=== PATIENT | female | born 1980 | race Caucasian/White ===

== ENCOUNTER 2023-08-09 09:39 | Observation (INO) | payer OTHER, SELFPAY ==
[2023-08-09] VITALS (23 sets, daily range): BP systolic 127–164; BP diastolic 81–116; PULSE 55–89; RESP 9–19; TEMP 36.6–36.7; O2SAT 95–100; BMI 34.7; BMI 34.9
--- NOTE | 2023-08-09 09:47 | ECG_ITS ---
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
[2023-08-09 09:59] LABS: Basophils Absolute Auto 0.1 10^3/uL (0.0-0.1); Basophils Percent Auto 0.5 % (0.2-2.0); Eosinophils Absolute Auto 0.2 10^3/uL (0.0-0.7); Eosinophils Percent Auto 1.8 % (0.9-7.0); Hemoglobin 15.5 g/dL (12.0-16.0); Immature Granulocytes Abs Auto 0.05 10^3/uL (0.00-0.03); Immature Granulocytes Pct Auto 0.4 % (0.0-0.5); Lymphocytes Absolute Auto 2.6 10^3/uL (1.2-3.8); Lymphocytes Percent Auto 21.8 % (20.5-60.0); Mean Corpuscular Hemoglobin 30.9 pg (26.7-34.0); Mean Corpuscular Volume 93.6 fL (81.0-99.0); Mean Platelet Volume 9.9 fL (9.5-13.5); Monocytes Absolute Auto 0.8 10^3/uL (0.3-0.8); Monocytes Percent Auto 6.3 % (1.7-12.0); Neutrophils Absolute Auto 8.3 10^3/uL (1.4-6.5); Neutrophils Percent Auto 69.2 % (43.0-75.0); Platelet Count 270 10^3/uL (150-450); Red Blood Count 5.02 10^6/uL (4.20-5.40); Red Cell Distribution Width 14.6 % (11.0-15.0)
--- NOTE | 2023-08-09 09:59 | XR_ITS ---
The [address] [address] Patient Name: TRAVIS RIVAS MRN: [id number] date: 1980 Sex: F Assigned Patient Location: ED.MAIN Current Patient Location: ED.MAIN Accession/Order Number: [id number] Exam Date: 08/09/2023 09:55 Report Date: 08/09/2023 10:23 At the request of: TATE MALDONADO Procedure: XR chest 1V EXAM: Portable chest REASON FOR EXAM: Chest pain for the last 3 days. TECHNIQUE: A portable frontal view of the chest was obtained. COMPARISON: None. FINDINGS: The lungs are well-inflated and clear. The heart and mediastinum are normal. There are median sternotomy wires. There is no mass or pathologic adenopathy. Osseous structures are normal. XR/XR chest 1V IMPRESSION: No acute cardiopulmonary process. Electronically authenticated by: GAVIN SANCHEZ Date: 08/09/2023 10:23
[2023-08-09 10:08] LABS: HCG Qualitative NEGATIVE (NEGATIVE)
[2023-08-09 10:13] LABS: Alanine Aminotransferase 38 U/L (14-59); Albumin Globulin Ratio 0.9; Albumin Level 3.6 g/dL (3.4-5.0); Alkaline Phosphatase 88 U/L (46-116); Anion Gap 15.4; Aspartate Amino Transferase 19 U/L (15-37); BUN Creatinine Ratio 18.3; Bilirubin Total 0.2 mg/dL (0.2-1.0); Calcium 8.7 mg/dL (8.5-10.1); Carbon Dioxide 19.8 mmol/L (21.0-32.0); Chloride 105 mmol/L (98-107); Estimated GFR (African America >60 (>=60); Estimated GFR (Non-African Ame >60 (>=60); Glucose 112 mg/dL (74-106); Potassium 4.2 mmol/L (3.5-5.1); Prothrombin Time 9.6 sec (9.0-11.6); Sodium 136 mmol/L (136-145); Total Protein 7.6 g/dL (6.4-8.2)
[2023-08-09 10:14] LABS: INR <0.93
[2023-08-09 10:15] LABS: Troponin I High Sensitivity 38.6 pg/mL (4.0-51.3)
[2023-08-09 10:44] LABS: Ethanol <3 mg/dL
--- NOTE | 2023-08-09 11:04 | ED_ITS ---
HPI - Chest Pain General Chief Complaint: Chest Pain Stated Complaint: CHEST PAIN Time Seen by Provider: 08/09/23 09:47 Source: patient Mode of arrival: walk-in Limitations: no limitations History of Present Illness HPI narrative: This is a high risk patient who is a 42 years old who had a coronary artery disease developed and 1 artery bypass surgery done at the age of 31, the patient still continues to smoke almost a pack of cigarettes daily She is coming to us with 1 month history of chest pain retrosternal radiating to her left neck that comes sometimes on exertion and sometimes not related to that. The patient mentioned that the chest pain is associated with difficulty breathing She does have a history of acid reflux but she mentioned that this pain is different than her acid reflux pain as it is more pressure and radiating to the neck No history of coughing fever chills or any other complaints the patient mentioned that the pain feels like is worse over the last few days The patient does have a history of depression although she does not take any medication she mentioned that she does not feel like she is at risk of harming herself or the others and she right now it does not think her depression is not controlled and she mentioned exactly that she knows when to seek help when she needs for the depression and right now she feels like her Depression is controlled with no exacerbation Related Data Home Medications Medication Instructions Recorded Confirmed metoprolol tartrate 50 mg tablet 50 mg PO BID 08/09/23 08/09/23 Allergies Allergy/AdvReac Type Severity Reaction Status Date / Time haloperidol [From Haldol] Allergy Severe Anaphylaxis Verified 08/09/23 09:49 promethazine [From Phenergan] Allergy Severe Cramping Verified 08/09/23 10:18 of the Muscles risperidone [From Risperdal] Allergy Severe Hives Verified 08/09/23 10:18 nalbuphine [From Nubain] AdvReac Severe Cramping Verified 08/09/23 10:18 of the Muscles Review of Systems ROS Status of ROS 10 or more systems reviewed and unremark able except as noted in history and below PFSH PFS Social History Smoking status: Heavy tobacco smoker Exam Narrative Exam Narrative: Nurses notes and vital signs reviewed and patient is not hypoxic. General: Well-appearing and in no apparent distress. Skin: Warm, dry, no pallor noted. No rash. Head: Normocephalic, atraumatic. Neck: Supple, non-tender. Eye: Pupils are equal, round and EOMI. No scleral icterus. Ears, Nose, Mouth, and Throat: TM are clear, no nasal mucosal hypertrophy. Oral mucosa is moist, no posterior oropharynx erythema, uvula is mid-line Cardiovascular: Regular Rate and Rhythm without murmur, gallop or rub. Respiratory: No accessory muscle use or respiratory distress. Lungs are clear to auscultation, no wheezing, rales or rhonchi Chest Wall: no tenderness Back: No midline thoracic or lumbar vertebral tenderness. No CVA tenderness Musculoskeletal: normal ROM, no calf or popliteal tenderness, no lower extremity edema/swelling GI: Abdomen is soft, non-distended. Normal bowel sounds. No masses appreciated. No tenderness to palpation. No rebound, guarding, or rigidity noted. Neurological: A&O x4. No cranial nerve dysfunction observed. No truncal ataxia. Moves all extremities. Sensation intact. Psychiatric: Cooperative and interactive. Normal mood and affect. Constitutional Vital Signs, click to edit/add: Last Vital Signs Temp 98 F 08/09/23 09:42 Pulse 61 08/09/23 10:30 Resp 14 08/09/23 10:30 BP 127/95 H 08/09/23 10:30 Pulse Ox 95 08/09/23 10:30 O2 Del Method Room Air 08/09/23 09:42 Course Vital Signs Vital signs: Vital Signs Temperature 98 F 08/09/23 09:42 Pulse Rate 89 08/09/23 09:42 Respiratory Rate 16 08/09/23 09:42 Blood Pressure 148/116 H 08/09/23 09:42 Pulse Oximetry 100 08/09/23 09:42 Oxygen Delivery Method Room Air 08/09/23 09:42 Temperature 98 F 08/09/23 09:42 Pulse Rate 61 08/09/23 10:30 Respiratory Rate 14 08/09/23 10:30 Blood Pressure 127/95 H 08/09/23 10:30 Pulse Oximetry 95 08/09/23 10:30 Oxygen Delivery Method Room Air 08/09/23 09:42 MDM - Chest Pain MDM Narrative Medical decision making narrative: The showing sinus rhythm with a heart rate of [address] elevation or depression there is T wave inversion noted in lead aVL and her recent EKG done in the primary care doctor did not show that although there was no old EKG for compari son The patient is a high risk patient with coronary artery disease history who already have a artery coronary artery disease bypass graft and apparently she still continues to smoke and she have no optimization of her treatment including no cholesterol management or any hyperlipidemia management The patient also does not take aspirin although sometimes she will take aspirin only when the pain happens and that helps usually CBC and chemistry shows mild leukocytosis with a metabolic acidosis with no associated significant anion gap The patient was provided with 1 dose of aspirin in the ER The patient need to be admitted for stress test as inpatient as possible and her case was discussed with Dr. Cook he agreed with above mentioned plan Lab Data Labs: Lab Results 08/09/23 Range/Units 09:51 WBC 12.0 H (4.0-11.0) 10^3/uL RBC 5.02 (4.20-5.40) 10^6/uL Hgb 15.5 (12.0-16.0) g/dL Hct 47.0 (36.0-48.0) % MCV 93.6 (81.0-99.0) fL MCH 30.9 (26.7-34.0) pg MCHC 33.0 (29.9-35.2) g/dL RDW 14.6 (11.0-15.0) % Plt Count 270 (150-450) 10^3/uL MPV 9.9 (9.5-13.5) fL Neut % (Auto) 69.2 (43.0-75.0) % Lymph % (Auto) 21.8 (20.5-60.0) % [place] % (Auto) 6.3 (1.7-12.0) % Eos % (Auto) 1.8 (0.9-7.0) % Baso % (Auto) 0.5 (0.2-2.0) % Neut # (Auto) 8.3 H (1.4-6.5) 10^3/uL Lymph # (Auto) 2.6 (1.2-3.8) 10^3/uL [place] # (Auto) 0.8 (0.3-0.8) 10^3/uL Eos # (Auto) 0.2 (0.0-0.7) 10^3/uL Baso # (Auto) 0.1 (0.0-0.1) 10^3/uL Abs Immat Gran (auto) 0.05 H (0.00-0.03) 10^3/uL Imm/Tot Granulo (auto) 0.4 (0.0-0.5) % PT 9.6 (9.0-11.6) sec INR <0.93 Sodium 136 (136-145) mmol/L Potassium 4.2 (3.5-5.1) mmol/L Chloride 105 (98-107) mmol/L Carbon Dioxide 19.8 L (21.0-32.0) mmol/L Anion Gap 15.4 BUN 13.0 (7.0-18.0) mg/dL Creatinine 0.71 (0.55-1.02) mg/dL Est GFR ( Amer) >60 (>=60) Est GFR (Non-Af Amer) >60 (>=60) BUN/Creatinine Ratio 18.3 Glucose 112 H (74-106) mg/dL Calcium 8.7 (8.5-10.1) mg/dL Total Bilirubin 0.2 (0.2-1.0) mg/dL AST 19 (15-37) U/L ALT 38 (14-59) U/L Alkaline Phosphatase 88 (46-116) U/L Troponin I High Sens 38.6 (4.0-51.3) pg/mL Total Protein 7.6 (6.4-8.2) g/dL Albumin 3.6 (3.4-5.0) g/dL Globulin 4.0 g/dL Albumin/Globulin Ratio 0.9 Serum HCG, Qual Negative (NEGATIVE) Ethanol Quant <3 mg/dL Heart Score History: Highly Suspicious ECG: NS Repolarization Age: <45 years Risk Factors: >3 Risk Factors/ HX of CAD:2 Troponin: <Normal Limit Total Heart Score Recommendations & Risks:: 5 Discharge Plan Discharge Chief Complaint: Chest Pain Clinical Impression: Chest pain Qualifiers: Chest pain type: chest pain due to myocardial ischemia Ischemic chest pain type: unstable angina pectoris Qualified Code(s): I20.0 - Unstable angina Patient Disposition: Admitted as Observation Time of Disposition Decision: 11:19
[2023-08-09] MEDS: ASPIRIN 81 MG TAB.CHEW 324 MG PO (11:22)
--- NOTE | 2023-08-09 12:20 | NM_ITS ---
Patient Name: TRAVIS RIVAS MR#: [id number] : 1980 Exam Date: 08/10/2023 Ordering Doctor: DR Gilberto Cook . RADIOLOGY REPORT PROCEDURE: NM RADHA PERF SPECT REST STR COMPARISON: None. INDICATIONS: Chest pain, coronary artery disease TECHNIQUE: Exam Description: Stress/Rest one day protocol gated SPECT Rest Imagin.3 mCi Tc-99m Cardiolite IV on 08/10/2023 Stress Imaging 30.4 mCi Tc-99m Cardiolite IV on 08/10/2023 Exercise Protocol: John Heart Rate (bpm): Rest: 83 Max: 151 PMHR: 85 Blood Pressure: Rest: 134/92 Max: 182/80 Exercise Time: Minutes: 7 Seconds: 09 Stage Reached: Stage: 3 Mets 7.3 Symptoms: Rest and peak stress ECG findings were pending and the exercise portion of the study was pending per attending physician Dr. MASTERSON . For more details please see separate cardiac stress test report. FINDINGS: QUALITY OF STUDY: Good. PERFUSION DEFECT: None. LOCATION: N/A SIZE: N/A. SEVERITY: N/A. TYPE: N/A. WALL MOTION: Normal. LV SIZE: Normal. 98 mL. TID / TCD: None; 1.1 LVEF: Normal. Calculated EF 61%. SUMMARY: Myocardial perfusion imaging study is NORMAL. CONCLUSION: 1. Normal myocardial perfusion scan with no reversible ischemia 2. Pending exercise test results Dictated by: Esau Bay MD on 08/10/2023 at 10:37 Approved by: Esau Bay MD on 08/10/2023 at 10:38
--- NOTE | 2023-08-09 12:22 | CA_ITS ---
Patient Name: TRAVIS RIVAS MR#: [id number] : 1980 Exam Date: 08/09/2023 Ordering Doctor: DR WILIAN LOZANO . ECHOCARDIOGRAM REPORT PROCEDURE: CA ECHO LIMITED INDICATIONS: Dyspnea COMPARISON: None. DESCRIPTION: Limited ECHOCARDIOGRAM Real-time transthoracic echocardiography with 2D and M-mode performed. QUALITY: Technical quality was good. LEFT VENTRICLE: Normal chamber size. Borderline left ventricular hypertrophy. LV EF: Global left ventricular systolic function is normal. Calculated left ventricular ejection fraction is 64% LEFT ATRIUM: Normal chamber size. RIGHT ATRIUM: Normal chamber size. RIGHT VENTRICLE: Normal chamber size. Normal right ventricular systolic function. TRICUSPID VALVE: Normal mobility and thickness. MITRAL VALVE: Normal mobility and thickness. AORTIC VALVE: Normal trileaflet appearance. AORTIC ROOT: Normal diameter and appearance. PULMONIC VALVE: Normal thickness and mobility. PERICARDIUM: No evidence of pericardial effusion. IVC: Collapses with inspirations. Normal size CONCLUSION: 1. Global left ventricular systolic function is normal; visually estimated ejection fraction is 60 to 65% 2. Borderline increased left ventricular wall thickness 3. Right ventricle is normal in size and systolic function A limited echocardiogram was performed Adult Echocardiography Procedure Report Left Ventricle LVEDD (3.7 - 5.6 cm): 4.33 cm LVESD (2.2 - 4.0 cm): 3.12 cm LVIVS thickness (0.6 - 1.2 cm): 1.11 cm LVPW thickness (0.5 - 1.0 cm): 0.95 cm LVOT Diameter 1.81 cm Left Ventricular Ejection Fraction: 63.60 % Left Atrium LA Volume Index (2D A2C): 29.00 ml/m2 Left Atrium Systolic Dimension: 3.66 cm Mitral Valve Right Ventricle RV Internal Diastolic Dimension: 3.22 cm Aorta AO Root Diam: 3.28 cm Ascending Ao Diam: 3.33 cm Aortic Valve Tricuspid Valve Pulmonic Valve Right Atrium Right Atrium Systolic Pressure: 49.60 ml, 49.60 ml Dictated by: Joleen Cotto M.D. on 08/09/2023 at 16:32 Approved by: Joleen Cotto M.D. on 08/09/2023 at 16:34
[2023-08-09 13:08] LABS: Troponin I High Sensitivity 34.3 pg/mL (4.0-51.3)
[2023-08-09] MEDS: PANTOPRAZOLE SODIUM 40 MG VIAL IV (13:27)
[2023-08-09] MEDS: NITROGLYCERIN 0.4 MG BOTTLE PO ×3 (13:27→20:32)
[2023-08-09] MEDS: ACETAMINOPHEN 500 MG TABLET 1000 MG PO ×2 (13:35→21:51)
[2023-08-09 16:00] LABS: Troponin I High Sensitivity 30.4 pg/mL (4.0-51.3)
--- NOTE | 2023-08-09 16:39 | PM.CACN ---
History of Present Illness History of Present Illness Consult date: 08/09/23 Requesting physician: Gilberto Cook Consult reason: chest pain Chief complaint: CHEST PAIN Narrative: Patient is a 42 y/o F with known PMHx of CAD s/p CABG in 2011, PSVT, current smoker who presented to [facility] with c/o worsening chest pain. She reports having sx's of constant chest pressure that would worsen with exertion for the past month. Pain would be 2/10. Last night her CP became severe, 10/10 burning pain with accompanied dyspnea and palpitations. She states this felt similar to her sx's prior to her CABG in 2011. She tried to relax and fell asleep. When she woke up the chest pressure was still there but not as intense but she presented to the ER due to her sx's the night before. She had troponin level drawn x3 which have all been negative. Her EKG was negative for acute ischemic changes. CXR was unremarkable. Her BP was high. Currently she continues to feel mild chest pressure, feels like her chest is under water. She was given a SL nitro tablet. This helped her sx's but she developed a headache afterwards. She states she has noticed worsening dyspnea with exertion and palpitations (feels like a flubbing in her chest) for the past month as well. She continues to smoke but has motivation to quit. She has tried chantix before but developed suicidal ideation with this. She also developed similar sx's taking cymbalta in the past. She denies orthopnea, PND, LE swelling, syncope. She has a mother who had bypass surgery when she was 55-60 y/o along with her paternal grandfather who had bypass surgery in his 60s. She had an ECHO done and is pending a stress test tomorrow. Review of Systems ROS Status of ROS 10 or more systems reviewed and unremarkable except as noted in history and below Cardiovascular Reports: chest pain, palpitations and shortness of breath with exertion Respiratory Reports: shortness of breath [facility] Medical History (Updated 08/09/23 @ 17:10 by ALEYDA TAYLOR APRN) Coronary bypass graft mechanical complication ?T82.218A - Other mechanical complication of coronary artery bypass graft, initial encounter (ICD-10) PSVT (paroxysmal supraventricular tachycardia) ?I47.10 - Supraventricular tachycardia, unspecified (ICD-10) Family History (Updated 08/09/23 @ 12:06 by Bailey Henson) Father Family history of cancer Brother Family history of diabetes mellitus Mother Family history of hypertension Grandfather Family history of myocardial infarction Grandmother Family history of stroke Social History (Updated 08/09/23 @ 12:09 by Bailey Henson) Within the past year, how often did you have a drink containing alcohol: monthly or less Within the past year, how often did you have six or more drinks on one occasion: never Smoking status: Heavy tobacco smoker Non-prescribed substance use: cannabis (any form) Highest level of school completed/degree received: 10th grade Are you now , , , , never or living with a partner: In a typical week, how many times do you talk on the telephone with family, friends, or neighbors: 3 or more times per week How often do you get together with friends or relatives: twice per week How often do you attend latter-day or latter day services: never Do you belong to any clubs or organizations such as latter-day groups unions, [employer] or athletic groups, or school groups: no Total score: 2 Score interpretation: A score of greater than or equal to 2 indicates the lowest level of social isolation. Little interest or pleasure in doing things: several days Feeling down, depressed, or hopeless: several days Feel stressed/tense/nervous/anxious/difficulty sleeping: rather much Meds Home Medications and Allergies Home Medications Medication Instructions Recorded Confirmed Type metoprolol tartrate 50 mg tablet 50 mg PO BID 08/09/23 08/09/23 History Allergies Allergy/AdvReac Type Severity Reaction Status Date / Time haloperidol [From Haldol] Allergy Severe Anaphylaxis Verified 08/09/23 09:49 promethazine [From Phenergan] Allergy Severe Cramping Verified 08/09/23 10:18 of the Muscles risperidone [From Risperdal] Allergy Severe Hives Verified 08/09/23 10:18 nalbuphine [From Nubain] AdvReac Severe Cramping Verified 08/09/23 10:18 of the Muscles Exam Constitutional Vital Signs, click to edit/add: Last Vital Signs Temp 97.9 F 08/09/23 11:58 Pulse 69 08/09/23 15:54 Resp 18 08/09/23 11:58 BP 152/91 H 08/09/23 11:58 Pulse Ox 97 08/09/23 11:58 O2 Del Method Room Air 08/09/23 11:58 Documenting provider has reviewed patient's vital signs: yes Common normals: no apparent distress, oriented x3, alert and well nourished HENMT Common normals: normocephalic and head/scalp atraumatic Nose: external nose normal External ear: external ears normal Eye Common normals: PERRL and EOMs intact bilaterally Neck & C-Spine Common normals: full ROM, supple, no JVD and no carotid bruits Chest Common normals: inspection of chest normal Respiratory Common normals: normal respiratory effort, no use of accessory muscles and clear to auscultation bilaterally Cardio Common normals: no JVD, regular rate, regular rhythm, S1 normal heart sound, S2 normal heart sound, no gallops, no clicks, no murmurs, no rub and peripheral pulses 2+ throughout GI Common normals: Normal to inspection, nondistended, normoactive bowel sounds present Extremity Common normals: normal to inspection and no pedal edema Neuro Common normals: oriented x3, moves all extremities and no focal motor deficits Results Labs and Meds Lab results: Cardiac Enzymes 08/09/23 Range/Units 09:51 AST 19 (15-37) U/L Coagulation 08/09/23 Range/Units 09:51 PT 9.6 (9.0-11.6) sec CBC 08/09/23 Range/Units 09:51 WBC 12.0 H (4.0-11.0) 10^3/uL RBC 5.02 (4.20-5.40) 10^6/uL Hgb 15.5 (12.0-16.0) g/dL Hct 47.0 (36.0-48.0) % Plt Count 270 (150-450) 10^3/uL Neut # (Auto) 8.3 H (1.4-6.5) 10^3/uL Lymph # (Auto) 2.6 (1.2-3.8) 10^3/uL [place] # (Auto) 0.8 (0.3-0.8) 10^3/uL Eos # (Auto) 0.2 (0.0-0.7) 10^3/uL Baso # (Auto) 0.1 (0.0-0.1) 10^3/uL Comprehensive Metabolic Panel 08/09/23 Range/Units 09:51 Sodium 136 (136-145) mmol/L Potassium 4.2 (3.5-5.1) mmol/L Chloride 105 (98-107) mmol/L Carbon Dioxide 19.8 L (21.0-32.0) mmol/L BUN 13.0 (7.0-18.0) mg/dL Creatinine 0.71 (0.55-1.02) mg/dL Glucose 112 H (74-106) mg/dL Calcium 8.7 (8.5-10.1) mg/dL AST 19 (15-37) U/L ALT 38 (14-59) U/L Alkaline Phosphatase 88 (46-116) U/L Total Protein 7.6 (6.4-8.2) g/dL Albumin 3.6 (3.4-5.0) g/dL Intake and Output 08/09/23 08/09/23 08/09/23 07:59 15:59 23:59 Intake Total 400 / 400 Balance 400 / 400 Intake: Oral 400 / 400 Other: Weight 98.2 kg Patient Weight 08/10/23 07:59 Weight 98.2 kg Imaging and Cardiology Echo: report reviewed (CONCLUSION: 1. Global left ventricular systolic function is normal; visually estimated ejection fraction is 60 to 65% 2. Borderline increased left ventricular wall thickness 3. Right ventricle is normal in size and systolic function) ECG results: image reviewed EKG Interpretation EKG: sinus rhythm Assessment and Plan Assessment and Plan (1) Chest pain: Qualifiers: Chest pain type: chest pain due to myocardial ischemia Ischemic chest pain type: unstable angina pectoris Qualified Code(s): I20.0 - Unstable angina (2) CAD (coronary artery disease): Qualifiers: Associated angina: with other forms of angina Coronary Disease-Associated Artery/Lesion type: [place] artery [place] vs. transplanted heart: [place] heart Qualified Code(s): I25.118 - Atherosclerotic heart disease of [place] coronary artery with other forms of angina pectoris (3) Dyspnea on exertion: (4) HTN (hypertension): Qualifiers: Hypertension type: primary hypertension Qualified Code(s): I10 - Essential (primary) hypertension (5) Hx of CABG: Plan #Chest pain #CAD s/p CABG 2012 #PSVT #HTN #Dyspnea on exertion PLAN: -Patients sx's are concerning for angina ariel given her cardiac hx. Her troponin level has been negative x3 and her ECHO showed preserved LVEF. Agree with proceeding with stress test. -For CAD management, patient has not routinely taken ASA or a statin for some time. She is agreeable to start both. ASA already ordered. Will start atorvastatin 20mg daily. Lipid panel ordered. -Her BP is elevated. Will increase metoprolol to 100mg BID. -She has some OK depression on her EKG. Will check inflammatory markers CRP/ESR to rule out pericarditis. -If her testing is negative, recommend starting her on Ranexa 500mg BID and we can further uptitrate this in the clinic if her sx's improve. Imdur not the best option as it would likely cause her headaches given her sx of headaches when taking SL nitro and ntiro gtt. -Discussed importance of smoking cessation. She has motivation to quit. She had suicidal ideation with chantix. Suggested trying acupuncture, hypnotherapy, etc. Follow-up appt made with [facility] on 09/08/2023 at 11am. Please call if any further questions or concerns. Thanks! Aleyda Taylor APRN-ORE TESTER
[2023-08-09 17:19] LABS: C Reactive Protein <0.50 mg/dL (<=0.50)
[2023-08-09 17:21] LABS: Erythrocyte Sedimentation Rate 67 mm/hr (<=20)
--- NOTE | 2023-08-09 17:44 | P.HP_ITS ---
H&P: HPI History of Present Illness Chief complaint: CHEST PAIN Narrative: Patient is a 42-year-old with a history of coronary artery disease status post CABG. Started having increasing chest pressure with shortness of breath. This was similar to her previous episode when she had her initial CABG. Workup in ER was unremarkable. Patient mated to observation. Review of Systems ROS Status of ROS 10 or more systems reviewed and unremark able except as noted in history and below PFS PFS Medical History (Updated 08/09/23 @ 17:10 by ALEYDA TAYLOR APRN) Coronary bypass graft mechanical complication ?T82.218A - Other mechanical complication of coronary artery bypass graft, initial encounter (ICD-10) PSVT (paroxysmal supraventricular tachycardia) ?I47.10 - Supraventricular tachycardia, unspecified (ICD-10) Family History (Updated 08/09/23 @ 12:06 by Bailey Henson) Father Family history of cancer Brother Family history of diabetes mellitus Mother Family history of hypertension Grandfather Family history of myocardial infarction Grandmother Family history of stroke Social History (Updated 08/09/23 @ 12:09 by Bailey Henson) Within the past year, how often did you have a drink containing alcohol: monthly or less Within the past year, how often did you have six or more drinks on one occasion: never Smoking status: Heavy tobacco smoker Non-prescribed substance use: cannabis (any form) Highest level of school completed/degree received: 10th grade Are you now , , , , never or living with a partner: In a typical week, how many times do you talk on the telephone with family, friends, or neighbors: 3 or more times per week How often do you get together with friends or relatives: twice per week How often do you attend roman catholic or catholic services: never Do you belong to any clubs or organizations such as roman catholic groups unions, fraternal or athletic groups, or school groups: no Total score: 2 Score interpretation: A score of greater than or equal to 2 indicates the lowest level of social isolation. Little interest or pleasure in doing things: several days Feeling down, depressed, or hopeless: several days Feel stressed/tense/nervous/anxious/difficulty sleeping: rather much Meds Home Medications and Allergies Home Medications Medication Instructions Recorded Confirmed Type metoprolol tartrate 50 mg tablet 50 mg PO BID 08/09/23 08/09/23 History Allergies Allergy/AdvReac Type Severity Reaction Status Date / Time haloperidol [From Haldol] Allergy Severe Anaphylaxis Verified 08/09/23 09:49 promethazine [From Phenergan] Allergy Severe Cramping Verified 08/09/23 10:18 of the Muscles risperidone [From Risperdal] Allergy Severe Hives Verified 08/09/23 10:18 nalbuphine [From Nubain] AdvReac Severe Cramping Verified 08/09/23 10:18 of the Muscles Exam Constitutional Vital Signs, click to edit/add: Last Vital Signs Temp 97.9 F 08/09/23 11:58 Pulse 73 08/09/23 17:25 Resp 18 08/09/23 11:58 BP 152/91 H 08/09/23 11:58 Pulse Ox 97 08/09/23 11:58 O2 Del Method Room Air 08/09/23 11:58 Documenting provider has reviewed patient's vital signs: yes Common normals: no apparent distress Chest Common normals: inspection of chest normal Respiratory Common normals: normal respiratory effort and no retractions Cardio Common normals: no JVD, regular rhythm and no murmurs Results Labs Labs: Short CBC 08/09/23 Range/Units 09:51 WBC 12.0 H (4.0-11.0) 10^3/uL Hgb 15.5 (12.0-16.0) g/dL Hct 47.0 (36.0-48.0) % Plt Count 270 (150-450) 10^3/uL BMP 08/09/23 09:51 Sodium 136 Potassium 4.2 Chloride 105 Carbon Dioxide 19.8 L BUN 13.0 Creatinine 0.71 Glucose 112 H Calcium 8.7 Liver Function 08/09/23 Range/Units 09:51 Total Bilirubin 0.2 (0.2-1.0) mg/dL AST 19 (15-37) U/L ALT 38 (14-59) U/L Alkaline Phosphatase 88 (46-116) U/L Albumin 3.6 (3.4-5.0) g/dL Assessment and Plan Assessment and Plan (1) Chest pain: Qualifiers: Chest pain type: chest pain due to myocardial ischemia Ischemic chest pain type: unstable angina pectoris Qualified Code(s): I20.0 - Unstable angina (2) CAD (coronary artery disease): Qualifiers: Coronary Disease-Associated Artery/Lesion type: [place] artery [place] vs. transplanted heart: [place] heart Associated angina: with other forms of angina Qualified Code(s): I25.118 - Atherosclerotic heart disease of [place] coronary artery with other forms of angina pectoris (3) Dyspnea on exertion: (4) HTN (hypertension): Qualifiers: Hypertension type: primary hypertension Qualified Code(s): I10 - Essential (primary) hypertension (5) Hx of CABG: Plan Chest in a patient with known history of coronary artery disease-trend cardiac markers, consult to cardiology for considerations for stress test versus heart cath. Try to obtain stress test tomorrow. And depending on echocardiogram and lab results.-Patient not taking aspirin consistently Insomnia-we will do Benadryl 100 mg at bedtime is what she takes at home Hypertension-patient not been taking her medications. May need adjustment in doses will follow here
[2023-08-09] MEDS: DIPHENHYDRAMINE HCL 25 MG CAPSULE 100 MG PO (18:54)
[2023-08-09] MEDS: ATORVASTATIN CALCIUM 20 MG TABLET PO (21:52)
[2023-08-10] VITALS (7 sets, daily range): BP systolic 135–154; BP diastolic 84–93; PULSE 58–69; RESP 18; TEMP 36.4; O2SAT 95–96
--- NOTE | 2023-08-10 | PCN_ITS ---
CARDIAC STRESS TEST Requesting Physician: Procedure Date: 08/10/2023 INDICATION: Chest pain. METHODS: After risks, benefits and alternatives were explained, written informed consent was obtained. The patient was connected to the appropriate hemodynamic and electrocardiographic monitoring. She underwent a John protocol for exercise. At peak exercise, technetium Cardiolite was administered. She was monitored for the standard duration and transferred to the Nuclear Lab for imaging. There were no complications. FINDINGS HEMODYNAMICS: The patient exercised for 7 minutes and 9 seconds, reaching stage 2 of the John protocol and achieving 7.3 METS. Resting blood pressure was 134/92 with a maximum blood pressure 182/80. Resting heart rate was 83 beats per minute, increasing to a maximum heart rate of 151 beats per minute, which is 84% of maximum predicted heart rate. SYMPTOMS: The patient had chest discomfort and the target heart rate was achieved. ELECTROCARDIOGRAPHY RESTING EKG: Normal sinus rhythm, 83 beats per minute, no significant ST-T wave changes. DURING EXERCISE AND RECOVERY: No significant ST-T wave changes noted, no significant arrhythmia seen. FINAL IMPRESSIONS: 1. Submaximal stress test due to inability to achieve 85% of maximum stress test; the patient achieved 84% of maximum predicted heart rate. 2. No ischemic EKG changes seen on treadmill stress test. 3. Nuclear images are to read, interpreted and reported in a separate dictation. KARLA
[2023-08-10 04:54] LABS: Basophils Absolute Auto 0.1 10^3/uL (0.0-0.1); Basophils Percent Auto 0.6 % (0.2-2.0); Eosinophils Absolute Auto 0.2 10^3/uL (0.0-0.7); Eosinophils Percent Auto 2.4 % (0.9-7.0); Hematocrit 44.6 % (36.0-48.0); Hemoglobin 14.7 g/dL (12.0-16.0); Immature Granulocytes Abs Auto 0.03 10^3/uL (0.00-0.03); Immature Granulocytes Pct Auto 0.3 % (0.0-0.5); Lymphocytes Absolute Auto 2.7 10^3/uL (1.2-3.8); Lymphocytes Percent Auto 27.7 % (20.5-60.0); Mean Corpuscular Hemoglobin 30.9 pg (26.7-34.0); Mean Corpuscular Volume 93.9 fL (81.0-99.0); Mean Platelet Volume 9.9 fL (9.5-13.5); Monocytes Absolute Auto 0.7 10^3/uL (0.3-0.8); Monocytes Percent Auto 6.9 % (1.7-12.0); Neutrophils Percent Auto 62.1 % (43.0-75.0); Platelet Count 247 10^3/uL (150-450); Red Blood Count 4.75 10^6/uL (4.20-5.40); Red Cell Distribution Width 14.8 % (11.0-15.0); White Blood Count 9.6 10^3/uL (4.0-11.0)
[2023-08-10 05:16] LABS: Chol HDL Ratio 4.9; Cholesterol 221 mg/dL (<=200); HDL Cholesterol 45 mg/dL (40-60); Triglycerides 138 mg/dL (<=150); VLDL CHOLESTEROL 27.6 mg/dL
[2023-08-10 05:21] LABS: Anion Gap 15.5; BUN Creatinine Ratio 17.5; Calcium 8.8 mg/dL (8.5-10.1); Carbon Dioxide 21.8 mmol/L (21.0-32.0); Chloride 103 mmol/L (98-107); Estimated GFR (African America >60 (>=60); Estimated GFR (Non-African Ame >60 (>=60); Glucose 103 mg/dL (74-106); Potassium 4.3 mmol/L (3.5-5.1); Sodium 136 mmol/L (136-145); Troponin I High Sensitivity 17.1 pg/mL (4.0-51.3)
--- NOTE | 2023-08-10 07:42 | P.PN_ITS ---
Progress Note: Subjective Subjective Interval history: Patient remains chest pain-free. He has not had any episodes since she took her aspirin yesterday. Plan is for stress test today. Exam Constitutional Vital Signs, click to edit/add: Last Vital Signs Temp 97.6 F 08/10/23 05:37 Pulse 62 08/10/23 05:55 Resp 18 08/10/23 05:37 BP 135/84 08/10/23 05:37 Pulse Ox 95 08/10/23 05:37 O2 Del Method Room Air 08/10/23 05:37 Documenting provider has reviewed patient's vital signs: yes Common normals: no apparent distress Chest Common normals: inspection of chest normal Respiratory Common normals: normal respiratory effort and no retractions Cardio Common normals: no JVD, regular rhythm and no murmurs Progress Note: Objective Labs Labs: Short CBC 08/09/23 08/10/23 Range/Units 09:51 04:34 WBC 12.0 H 9.6 (4.0-11.0) 10^3/uL Hgb 15.5 14.7 (12.0-16.0) g/dL Hct 47.0 44.6 (36.0-48.0) % Plt Count 270 247 (150-450) 10^3/uL BMP 08/09/23 08/10/23 09:51 04:34 Sodium 136 136 Potassium 4.2 4.3 Chloride 105 103 Carbon Dioxide 19.8 L 21.8 BUN 13.0 14.0 Creatinine 0.71 0.80 Glucose 112 H 103 Calcium 8.7 8.8 Liver Function 08/09/23 Range/Units 09:51 Total Bilirubin 0.2 (0.2-1.0) mg/dL AST 19 (15-37) U/L ALT 38 (14-59) U/L Alkaline Phosphatase 88 (46-116) U/L Albumin 3.6 (3.4-5.0) g/dL Progress Note: A&P Assessment and Plan (1) Chest pain: Qualifiers: Chest pain type: chest pain due to myocardial ischemia Ischemic chest pain type: unstable angina pectoris Qualified Code(s): I20.0 - Unstable angina (2) CAD (coronary artery disease): Qualifiers: Associated angina: with other forms of angina Coronary Disease- Associated Artery/Lesion type: [place] artery [place] vs. transplanted heart: [place] heart Qualified Code(s): I25.118 - Atherosclerotic heart disease of [place] coronary artery with other forms of angina pectoris (3) Dyspnea on exertion: (4) HTN (hypertension): Qualifiers: Hypertension type: primary hypertension Qualified Code(s): I10 - Essential (primary) hypertension (5) Hx of CABG: Plan Chest in a patient with known history of coronary artery disease-cardiac markers all negative. Reviewed consultation from cardiology. Stress test this morning. Plans for having her go somewhere today. Stress test positive then she needs to get transferred to [facility], if negative she can be discharged home with outpatient follow-up and encouraged her to take her medications for the rest of her life Insomnia-we will do Benadryl 100 mg at bedtime is what she takes at home Hypertension-patient not been taking her medications. May need adjustment in doses will follow here Leukocytosis-resolved Hypercholesterolemia-start cholesterol medication
[2023-08-10] MEDS: METOPROLOL TARTRATE 100 MG TABLET PO (08:50)
[2023-08-10] MEDS: ASPIRIN 81 MG TABLET.DR PO (08:50)
--- NOTE | 2023-08-10 13:33 | PC.NURSE ---
Patient was called after discharged to inform them of a follow up appt. with [facility] on Sep.08 @ 11am
== END 2023-08-10 13:08 | disposition home or self-care (01) ==
LOC: ER 11:19 → MS 11:28
PROVIDERS: Nurse Practitioner Family; Admitting Provider Family Medicine; Emergency Provider Emergency Medicine; PCP Family Medicine; Visit Provider Family Medicine
DX: I25.110 Atherosclerotic heart disease of native coronary artery with unstable angina pectoris (principal); I10 Essential (primary) hypertension; R06.00 Dyspnea, unspecified; G47.00 Insomnia, unspecified; D72.829 Elevated white blood cell count, unspecified; E78.00 Pure hypercholesterolemia, unspecified; Z95.1 Presence of aortocoronary bypass graft; F17.210 Nicotine dependence, cigarettes, uncomplicated; F12.90 Cannabis use, unspecified, uncomplicated
CPT/HCPCS: 36415; 71045; 78452; 80048; 80053; 80061; 80320; 83880; 84484; 84703; 85025; 85610; 85652; 86140; 93005; 93017; 93308; 94667; 94668; 94761; 96374; 99285; A9500; G0378

== ENCOUNTER 2023-08-16 10:13 | Emergency (ER) | payer OTHER, SELFPAY ==
[2023-08-16] VITALS (53 sets, daily range): BP systolic 107–183; BP diastolic 63–104; PULSE 52–80; RESP 8–27; TEMP 36.7; O2SAT 96–100; BMI 34.1
--- NOTE | 2023-08-16 10:24 | ECG_ITS ---
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
--- NOTE | 2023-08-16 10:24 | CT_ITS ---
The [address] [address] Patient Name: TRAVIS RIVAS MRN: [id number] date: 1980 Sex: F Assigned Patient Location: ER Current Patient Location: ER Accession/Order Number: [id number] Exam Date: 08/16/2023 10:53 Report Date: 08/16/2023 11:44 At the request of: MARYAM ONTIVEROS Procedure: CT angio chest EXAM: CT angio chest HISTORY: cp COMPARISON: Chest radiograph from 08/09/2023 TECHNIQUE: CT angio chest FINDINGS: OVERALL DIAGNOSTIC QUALITY: Full diagnostic quality LOWER NECK: 2.0 cm hypoattenuating right thyroid lobe nodule (image 8 of series 4). CHEST: PULMONARY ARTERIES: Negative for pulmonary embolus LUNGS / AIRWAYS / PLEURA: No suspicious pulmonary nodule or mass. A few scattered pulmonary cysts. Mild lower lobe predominant peribronchial thickening. HEART / OTHER VESSELS: CABG changes. Moderate [place] coronary artery disease. MEDIASTINUM / ESOPHAGUS: Peripherally calcified mass with central fluid density in the anterior mediastinum measuring 4.0 x 3.8 cm (image 45 of series 4). No evident fatty component. LYMPH NODES: None enlarged. CHEST WALL: No significant abnormality. UPPER ABDOMEN: Small arterially enhancing focus in hepatic segment 8 measuring 0.9 cm (image 70 of series 4). MUSCULOSKELETAL: No significant abnormality. CT/CT angio chest IMPRESSION: 1. No pulmonary embolus. 2. Lower lobe peribronchial thickening, nonspecific finding which can be seen with bronchiolitis or pulmonary edema. 3. Peripherally enhancing and partially calcified mass in the anterior mediastinum with central fluid density. The differential for anterior mediastinal masses is broad, but thymoma and thymic cyst are favored given the CT appearance. Consider further evaluation with MRI if clinically indicated. 4. Small arterially enhancing focus in hepatic segment 8. This could be perfusional, but is technically indeterminate. This can be further evaluated with liver protocol CT or MRI. 5. Hypoattenuating right thyroid lobe nodule meets size criteria to warrant further nonemergent evaluation with thyroid ultrasound if clinically indicated. Findings were discussed with Maryam Ontiveros via telephone by Dr. Chambers on 08/16/2023 10:43 AM EXHIBIT BU[employer]DER. Electronically authenticated by: ABDON CHAMBERS Date: 08/16/2023 11:44
[2023-08-16 10:39] LABS: Basophils Absolute Auto 0.1 10^3/uL (0.0-0.1); Basophils Percent Auto 0.7 % (0.2-2.0); Eosinophils Absolute Auto 0.2 10^3/uL (0.0-0.7); Eosinophils Percent Auto 2.1 % (0.9-7.0); Hematocrit 44.7 % (36.0-48.0); Hemoglobin 14.5 g/dL (12.0-16.0); Immature Granulocytes Abs Auto 0.04 10^3/uL (0.00-0.03); Immature Granulocytes Pct Auto 0.4 % (0.0-0.5); Lymphocytes Absolute Auto 2.4 10^3/uL (1.2-3.8); Lymphocytes Percent Auto 22.8 % (20.5-60.0); Mean Corpuscular HGB Conc 32.4 g/dL (29.9-35.2); Mean Corpuscular Hemoglobin 30.6 pg (26.7-34.0); Mean Corpuscular Volume 94.3 fL (81.0-99.0); Mean Platelet Volume 10.2 fL (9.5-13.5); Monocytes Absolute Auto 0.7 10^3/uL (0.3-0.8); Monocytes Percent Auto 6.7 % (1.7-12.0); Neutrophils Absolute Auto 7.2 10^3/uL (1.4-6.5); Neutrophils Percent Auto 67.3 % (43.0-75.0); Platelet Count 264 10^3/uL (150-450); Red Blood Count 4.74 10^6/uL (4.20-5.40); Red Cell Distribution Width 14.5 % (11.0-15.0); White Blood Count 10.7 10^3/uL (4.0-11.0)
--- NOTE | 2023-08-16 10:40 | ED_ITS ---
HPI - General Adult General Chief complaint: Chest Pain Stated complaint: CHEST PAIN Time Seen by Provider: 08/16/23 10:16 Source: patient Mode of arrival: walk-in History of Present Illness HPI narrative: Patient is a 42-year-old female who is presenting to the ER today ongoing daily chest pain for the past 3 weeks. Patient is taking anywhere from 3-5 nitro tabs a day. Patient was admitted to the hospital last week, had serial troponins, EKGs, x-ray and echocardiogram that showed no acute finding. Patient had a CABG 11 years ago, her LAD was replaced. They thought the patient's polycystic ovarian syndrome led to cholesterol which led to the blockage. Patient does have opiate history, she has been sober for 10 years. Patient did intermittently use cocaine but not daily at that time. Patient's been drug-free for over 10 years. Patient does take cholesterol medication, baby aspirin, and metoprolol daily. No recent traveling. Patient is due for her menses 2 days ago, patient is a G1, P1. Patient uses condoms with intercourse, she has not used trying to get . She has no recent traveling, no trauma. No other significant findings at this time. Patient went to PCP office today, she is continuing to have active chest pain daily and she is carrying her nitro bottle with her. Patient is taken over 20 nitro tablets in the past week. Patient currently is not having active chest pain but she was earlier today and a nitro did relieve her pain All systems are negative except as noted/marked. All systems reviewed and otherwise negative. Nurses note and vital signs reviewed and patient is not hypoxic. General: The patient appears well and in no apparent distress. Patient is resting comfortably on cart. Patient is not toxic, lethargic, or listless Skin: Warm, dry, no pallor noted. There is no rash noted. No petechiae, purpura. Head: Normocephalic, atraumatic Eye: Normal conjunctiva, no drainage, EOMI. PERRL Ears, Nose, Mouth, and Throat: oral mucosa is moist. Nares patent. Mouth without vesicles. Cardiovascular: Regular Rate and Rhythm, no murmur, gallop, rub; no reproducible tenderness to palpation to anterior chest wall, Respiratory: Patient is in no distress, no accessory muscle use, lungs are clear to auscultation, no wheezing, rales or rhonchi Back: non-tender, no CVA tenderness bilaterally to percussion. No CT LS midline pain GI: no tenderness to palpation, no masses appreciated. No rebound, guarding, or rigidity noted. No distention. No midepigastric tenderness to palpation. Musculoskeletal: Patient has full range of motion of all of the extremities, no motor, sensory, or focal neurological deficits Neurological: A&O x4, normal speech Psychiatric: Cooperative Related Data Home Medications Medication Instructions Recorded Confirmed metoprolol tartrate 50 mg tablet 50 mg PO BID 08/09/23 08/16/23 Previous Rx's Medication Instructions Recorded aspirin 81 mg tablet,delayed 81 mg PO QD #30 tabs 08/10/23 release atorvastatin 20 mg tablet 20 mg PO QHS #30 tabs 08/10/23 nitroglycerin 0.4 mg sublingual 0.4 mg sublingual Q5M PRN chest 08/10/23 tablet pain #20 tabs Allergies Allergy/AdvReac Type Severity Reaction Status Date / Time haloperidol [From Haldol] Allergy Severe Anaphylaxis Verified 08/09/23 09:49 promethazine [From Phenergan] Allergy Severe Cramping Verified 08/09/23 10:18 of the Muscles risperidone [From Risperdal] Allergy Severe Hives Verified 08/09/23 10:18 nalbuphine [From Nubain] AdvReac Severe Cramping Verified 08/09/23 10:18 of the Muscles PFSH [facility] Medical History (Updated 08/16/23 @ 10:40 by Branden Ontiveros MD) HTN (hypertension) ?I10 - Essential (primary) hypertension (ICD-10) Dyspnea on exertion ?R06.09 - Other forms of dyspnea (ICD-10) CAD (coronary artery disease) ?I25.10 - Atherosclerotic heart disease of [place] coronary artery without angina pectoris (ICD-10) Chest pain ?R07.9 - Chest pain, unspecified (ICD-10) Coronary bypass graft mechanical complication ?T82.218A - Other mechanical complication of coronary artery bypass graft, initial encounter (ICD-10) PSVT (paroxysmal supraventricular tachycardia) ?I47.10 - Supraventricular tachycardia, unspecified (ICD-10) Surgical History (Updated 08/14/23 @ 00:00 by ) Hx of CABG ?Z95.1 - Presence of aortocoronary bypass graft (ICD-10) Family History (Updated 08/09/23 @ 12:06 by Bailey Henson) Father Family history of cancer Brother Family history of diabetes mellitus Mother Family history of hypertension Grandfather Family history of myocardial infarction Grandmother Family history of stroke Social History (Updated 08/09/23 @ 12:09 by Bailey Henson) Within the past year, how often did you have a drink containing alcohol: monthly or less Within the past year, how often did you have six or more drinks on one occasion: never Smoking status: Current every day smoker Non-prescribed substance use: cannabis (any form) Highest level of school completed/degree received: 10th grade Are you now , , , , never or living with a partner: In a typical week, how many times do you talk on the telephone with family, friends, or neighbors: 3 or more times per week How often do you get together with friends or relatives: twice per week How often do you attend sabianist or buddhism services: never Do you belong to any clubs or organizations such as sabianist groups unions, [employer] or athletic groups, or school groups: no Total score: 2 Score interpretation: A score of greater than or equal to 2 indicates the lowest level of social isolation. Little interest or pleasure in doing things: several days Feeling down, depressed, or hopeless: several days Feel stressed/tense/nervous/anxious/difficulty sleeping: rather much Exam Constitutional Vital Signs, click to edit/add: Last Vital Signs Temp 98.1 F 08/16/23 10:17 Pulse 65 08/16/23 18:45 Resp 15 08/16/23 18:45 BP 150/85 H 08/16/23 18:30 Pulse Ox 99 08/16/23 16:45 O2 Del Method Room Air 08/16/23 12:25 Course Vital Signs Vital signs: Vital Signs Temperature 98.1 F 08/16/23 10:17 Pulse Rate 62 08/16/23 10:17 Respiratory Rate 20 08/16/23 10:17 Blood Pressure 174/96 H 08/16/23 10:17 Pulse Oximetry 100 08/16/23 10:17 Temperature 98.1 F 08/16/23 10:17 Pulse Rate 65 08/16/23 18:45 Respiratory Rate 15 08/16/23 18:45 Blood Pressure 150/85 H 08/16/23 18:30 Pulse Oximetry 99 08/16/23 16:45 Oxygen Delivery Method Room Air 08/16/23 12:25 Medical Decision Making MDM Narrative Medical decision making narrative: 1025 I spoke to the product designer, Dr. Amin. 1030 I spoke to the attending, Dr. Bee. He is aware of the patient as well and will call the transfer line to assist with transfer. [address] Bee again. [facility] is at full capacity currently, they are holding patients in the ER. If patient is having active chest pain again, we are to call the transfer line and patient would be a ER to ER transfer and most likely going to the cardiac Television Tube Inspector. Patient currently is not having any chest pain. Patient EKG shows no acute changes. Patient will have a CT of the chest. Lab work is done. Patient is given 1 inch of Nitropaste and also was given 2 baby aspirin for therapeutic levels. 1330 patient was updated about her CTA of the chest. Patient is aware of the anterior mediastinal mass noted with calcification. Patient is aware of right thyroid nodule along with a spot on her liver. A copy of patient's CTA of the chest report was given to her. Patient is aware of the delays in transfer to [facility]. Patient has been accepted. She is aware that [facility] is a full capacity and they have multiple patients waiting in the ER for admission as well. Patient's is bringing her lunch, so that she can have lunch as long as is a cardia c healthy diet. Patient is aware. Patient has not had a return of chest pain. 1410 I spoke to the hospitalist medical team from [facility]. Patient is going to be a medical admission with cardiology in consultation. Patient will be admitted to Dr. Reynaga. We are still waiting for bed number [id number] patient had a return of chest pain, a additional EKG was done. Baseline normal sinus rhythm at 67 beats a minute. PVC noted. Artifact seen, QTc of 438. ST depression noted in the anterior lateral leads which is new compared to EKGs done this morning. 1620 I just spoke to the transfer center at [facility]. They are aware of return of chest pain and EKG changes. I am now waiting to speak to the ER doctor, they just had a level 1 trauma occur at [facility] so the physician will call me back. I am also paging Dr. Bee again to speak to him for the third time let him know about the return of pain and EKG changes. 1624 I spoke to the grain operator for the third time today, Dr. Bee. He agreed with transfer, will talk to the interventionalists about going to the cardiac Television Tube Inspector. He agreed with starting patient on a heparin bolus and drip as well. 1944 we have obtained a bed number for admission at [facility]. They will be arriving at approximately 2000 to take patient as a direct admission to [facility]. I gave patient a copy of her 2 EKGs that were done from today, and patient had education on ST depression that was noted on the anterolateral leads and her second EKG that was done. Patient will be admitted by Dr. Reynaga with Dr. Bee in consultation. I had 3 different phone calls with the grain operator. Patient has been in the ER for over 9 hours. Critical care time 55 minutes exclusive from separate billable procedures that were performed. The following was considered in the determination of critical care but not limited to the level of medical decision making, intensive cardiac and/or respiratory monitoring, frequent vital sign monitoring, evaluation of laboratory studies, evaluation of radiographic studies, oxygen monitoring, and constant monitoring and speaking to family at bedside Lab Data Labs: Lab Results 08/16/23 08/16/23 08/16/23 Range/Units 10:31 10:40 13:39 WBC 10.7 (4.0-11.0) 10^3/uL RBC 4.74 (4.20-5.40) 10^6/uL Hgb 14.5 (12.0-16.0) g/dL Hct 44.7 (36.0-48.0) % MCV 94.3 (81.0-99.0) fL MCH 30.6 (26.7-34.0) pg MCHC 32.4 (29.9-35.2) g/dL RDW 14.5 (11.0-15.0) % Plt Count 264 (150-450) 10^3/uL MPV 10.2 (9.5-13.5) fL Neut % (Auto) 67.3 (43.0-75.0) % Lymph % (Auto) 22.8 (20.5-60.0) % [place] % (Auto) 6.7 (1.7-12.0) % Eos % (Auto) 2.1 (0.9-7.0) % Baso % (Auto) 0.7 (0.2-2.0) % Neut # (Auto) 7.2 H (1.4-6.5) 10^3/uL Lymph # (Auto) 2.4 (1.2-3.8) 10^3/uL Johnston # (Auto) 0.7 (0.3-0.8) 10^3/uL Eos # (Auto) 0.2 (0.0-0.7) 10^3/uL Baso # (Auto) 0.1 (0.0-0.1) 10^3/uL Abs Immat Gran (auto) 0.04 H (0.00-0.03) 10^3/uL Imm/Tot Granulo (auto) 0.4 (0.0-0.5) % PT 9.9 (9.0-11.6) sec INR 0.93 APTT 30.1 (22.3-36.2) sec Sodium 137 (136-145) mmol/L Potassium 4.3 (3.5-5.1) mmol/L Chloride 102 (98-107) mmol/L Carbon Dioxide 26.1 (21.0-32.0) mmol/L Anion Gap 13.2 BUN 15.0 (7.0-18.0) mg/dL Creatinine 0.77 (0.55-1.02) mg/dL Est GFR ( Amer) >60 (>=60) Est GFR (Non-Af Amer) >60 (>=60) BUN/Creatinine Ratio 19.5 Glucose 118 H (74-106) mg/dL Calcium 8.8 (8.5-10.1) mg/dL Total Bilirubin 0.2 (0.2-1.0) mg/dL AST 14 L (15-37) U/L ALT 32 (14-59) U/L Alkaline Phosphatase 85 (46-116) U/L Troponin I High Sens 7.4 7.1 (4.0-51.3) pg/mL NT-Pro-B Natriuret Pep 93.0 (<=450.0) pg/mL Total Protein 7.5 (6.4-8.2) g/dL Albumin 3.6 (3.4-5.0) g/dL Globulin 3.9 g/dL Albumin/Globulin Ratio 0.9 Urine Color Yellow (YELLOW) Urine Clarity Slightly cloudy A (CLEAR) Urine pH 5.5 (5.0-9.0) Ur Specific [place] >=1.030 A (1.005-1.025) Urine Protein Negative (NEG/TRACE) mg/dL Urine Glucose (UA) Negative (NEGATIVE) mg/dL Urine Ketones Negative (NEGATIVE) mg/dL Urine Occult Blood Negative (NEGATIVE) Urine Nitrite Negative (NEGATIVE) Urine Bilirubin Negative (NEGATIVE) Urine Urobilinogen 0.2 (0.2-1.0) EU/dL Ur Leukocyte Esterase Trace A (NEGATIVE) Urine RBC None seen (0-2) #/HPF Urine WBC 0-2 A (NONE SEEN) #/HPF Ur Squamous Epith Cells Many A (NONE/RARE) #/LPF Urine Crystals None seen (None Seen) #/HPF Urine Bacteria Small A (NONE SEEN) #/HPF Urine Casts None seen (NONE SEEN) #/LPF Urine Mucus None seen (NONE SEEN) Urine HCG, Qual Negative (NEGATIVE) Urine Opiates Screen Negative (NEGATIVE) Ur Buprenorphine Scrn Negative (NEGATIVE) Ur Oxycodone Screen Negative (NEGATIVE) Urine Methadone Screen Negative (NEGATIVE) Ur Barbiturates Screen Negative (NEGATIVE) U Tricyclic Antidepress Negative (NEGATIVE) Ur Phencyclidine Scrn Negative (NEGATIVE) Ur Amphetamines Screen Negative (NEGATIVE) U Methamphetamines Scrn Negative (NEGATIVE) U Benzodiazepines Scrn Negative (NEGATIVE) Urine Cocaine Screen Negative (NEGATIVE) U Cannabinoids Screen Positive A (NEGATIVE) 08/16/23 Range/Units 16:40 WBC (4.0-11.0) 10^3/uL RBC (4.20-5.40) 10^6/uL Hgb (12.0-16.0) g/dL Hct (36.0-48.0) % MCV (81.0-99.0) fL MCH (26.7-34.0) pg MCHC (29.9-35.2) g/dL RDW (11.0-15.0) % Plt Count (150-450) 10^3/uL MPV (9.5-13.5) fL Neut % (Auto) (43.0-75.0) % Lymph % (Auto) (20.5-60.0) % Johnston % (Auto) (1.7-12.0) % Eos % (Auto) (0.9-7.0) % Baso % (Auto) (0.2-2.0) % Neut # (Auto) (1.4-6.5) 10^3/uL Lymph # (Auto) (1.2-3.8) 10^3/uL [place] # (Auto) (0.3-0.8) 10^3/uL Eos # (Auto) (0.0-0.7) 10^3/uL Baso # (Auto) (0.0-0.1) 10^3/uL Abs Immat Gran (auto) (0.00-0.03) 10^3/uL Imm/Tot Granulo (auto) (0.0-0.5) % PT 10.2 (9.0-11.6) sec INR 0.96 APTT 28.8 (22.3-36.2) sec Sodium (136-145) mmol/L Potassium (3.5-5.1) mmol/L Chloride (98-107) mmol/L Carbon Dioxide (21.0-32.0) mmol/L Anion Gap BUN (7.0-18.0) mg/dL Creatinine (0.55-1.02) mg/dL Est GFR ( Amer) (>=60) Est GFR (Non-Af Amer) (>=60) BUN/Creatinine Ratio Glucose (74-106) mg/dL Calcium (8.5-10.1) mg/dL Total Bilirubin (0.2-1.0) mg/dL AST (15-37) U/L ALT (14-59) U/L Alkaline Phosphatase (46-116) U/L Troponin I High Sens 6.8 (4.0-51.3) pg/mL NT-Pro-B Natriuret Pep (<=450.0) pg/mL Total Protein (6.4-8.2) g/dL Albumin (3.4-5.0) g/dL Globulin g/dL Albumin/Globulin Ratio Urine Color (YELLOW) Urine Clarity (CLEAR) Urine pH (5.0-9.0) Ur Specific [place] (1.005-1.025) Urine Protein (NEG/TRACE) mg/dL Urine Glucose (UA) (NEGATIVE) mg/dL Urine Ketones (NEGATIVE) mg/dL Urine Occult Blood (NEGATIVE) Urine Nitrite (NEGATIVE) Urine Bilirubin (NEGATIVE) Urine Urobilinogen (0.2-1.0) EU/dL Ur Leukocyte Esterase (NEGATIVE) Urine RBC (0-2) #/HPF Urine WBC (NONE SEEN) #/HPF Ur Squamous Epith Cells (NONE/RARE) #/LPF Urine Crystals (None Seen) #/HPF Urine Bacteria (NONE SEEN) #/HPF Urine Casts (NONE SEEN) #/LPF Urine Mucus (NONE SEEN) Urine HCG, Qual (NEGATIVE) Urine Opiates Screen (NEGATIVE) Ur Buprenorphine Scrn (NEGATIVE) Ur Oxycodone Screen (NEGATIVE) Urine Methadone Screen (NEGATIVE) Ur Barbiturates Screen (NEGATIVE) U Tricyclic Antidepress (NEGATIVE) Ur Phencyclidine Scrn (NEGATIVE) Ur Amphetamines Screen (NEGATIVE) U Methamphetamines Scrn (NEGATIVE) U Benzodiazepines Scrn (NEGATIVE) Urine Cocaine Screen (NEGATIVE) U Cannabinoids Screen (NEGATIVE) ECG Data Attestation: I personally reviewed and interpreted this ECG as follows: (EKG interpretation. Normal sinus rhythm at 53 beats a minute. No acute ST elevation, no acute ectopy. QTc of 414. Q waves noted.) Discharge Plan Discharge Chief Complaint: Chest Pain Clinical Impression: Angina pectoris, unstable, Chest pain Patient Disposition: [facility] Time of Disposition Decision: 10:30 Discharge location: [facility], cardiology Condition: Serious Mode of Transportation: EMS
[2023-08-16] MEDS: 0.9 % SODIUM CHLORIDE 1,000 ML 1000 ML IV (10:41)
[2023-08-16] MEDS: ASPIRIN 81 MG TAB.CHEW 162 MG PO (10:41)
[2023-08-16 10:53] LABS: Alanine Aminotransferase 32 U/L (14-59); Albumin Globulin Ratio 0.9; Albumin Level 3.6 g/dL (3.4-5.0); Alkaline Phosphatase 85 U/L (46-116); Anion Gap 13.2; Aspartate Amino Transferase 14 U/L (15-37); BUN Creatinine Ratio 19.5; Bilirubin Total 0.2 mg/dL (0.2-1.0); Calcium 8.8 mg/dL (8.5-10.1); Carbon Dioxide 26.1 mmol/L (21.0-32.0); Chloride 102 mmol/L (98-107); Estimated GFR (African America >60 (>=60); Estimated GFR (Non-African Ame >60 (>=60); Globulin 3.9 g/dL; Glucose 118 mg/dL (74-106); INR 0.93; Partial Thromboplastin Time 30.1 sec (22.3-36.2); Potassium 4.3 mmol/L (3.5-5.1); Prothrombin Time 9.9 sec (9.0-11.6); Sodium 137 mmol/L (136-145); Total Protein 7.5 g/dL (6.4-8.2)
[2023-08-16 10:54] LABS: Bilirubin Urine NEGATIVE (NEGATIVE); Blood Urine NEGATIVE (NEGATIVE); Color Urine YELLOW (YELLOW); Glucose Urine UA NEGATIVE (NEGATIVE); HCG Qualitative Urine* NEGATIVE (NEGATIVE); Ketones Urine NEGATIVE (NEGATIVE); Leukocyte Esterase Urine TRACE (NEGATIVE); Nitrite Urine NEGATIVE (NEGATIVE); Protein Urine NEGATIVE (NEG/TRACE); Specific Gravity Urine >=1.030 (1.005-1.025); Urobilinogen Urine 0.2 EU/dL (0.2-1.0); pH Urine 5.5 (5.0-9.0)
[2023-08-16 10:58] LABS: Troponin I High Sensitivity 7.4 pg/mL (4.0-51.3)
[2023-08-16 11:00] LABS: Clarity Urine SLIGHTLY CLOUDY (CLEAR); RBC Urine NONE SEEN #/HPF (0-2); WBC Urine 0-2 #/HPF (NONE SEEN)
[2023-08-16 11:01] LABS: Bacteria Urine SMALL #/HPF (NONE SEEN); Cast Seen? NONE SEEN #/LPF (NONE SEEN); Crystals Seen? None Seen #/HPF (None Seen); Mucus Urine NONE SEEN (NONE SEEN); Squamous Epithelial Cell Urine MANY #/LPF (NONE/RARE)
[2023-08-16] MEDS: NITROGLYCERIN 2% 1 GRAM PACKET 1 GM TD ×2 (11:09→16:55)
[2023-08-16 14:03] LABS: Troponin I High Sensitivity 7.1 pg/mL (4.0-51.3)
--- NOTE | 2023-08-16 16:09 | ECG_ITS ---
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
[2023-08-16 16:18] LABS: Amphetamine Screen Urine NEGATIVE (NEGATIVE); Barbiturates Screen Urine NEGATIVE (NEGATIVE); Benzodiazepines Screen Urine NEGATIVE (NEGATIVE); Buprenorphine Screen Urine NEGATIVE (NEGATIVE); Cocaine Screen Urine NEGATIVE (NEGATIVE); Methadone Screen Urine NEGATIVE (NEGATIVE); Methamphetamines Screen Urine NEGATIVE (NEGATIVE); Opiate Screen Urine NEGATIVE (NEGATIVE); Oxycodone Screen Urine NEGATIVE (NEGATIVE); Phencyclidine Screen Urine NEGATIVE (NEGATIVE); Tricyclic Antidepressant Urine NEGATIVE (NEGATIVE)
[2023-08-16 16:19] LABS: Cannabinoid Screen Urine POSITIVE (NEGATIVE)
[2023-08-16] MEDS: HEPARIN SODIUM (PORCINE) 5,000 UNIT/ML VIAL 4000 UNIT IV (16:50)
[2023-08-16] MEDS: HEPARIN SODIUM,PORCINE/D5W 25,000 UNIT/500 ML IV.SOLN 23.732 UNIT IV (16:53)
[2023-08-16 17:01] LABS: INR 0.96; Partial Thromboplastin Time 28.8 sec (22.3-36.2); Prothrombin Time 10.2 sec (9.0-11.6)
[2023-08-16 17:02] LABS: Troponin I High Sensitivity 6.8 pg/mL (4.0-51.3)
--- NOTE | 2023-08-16 20:40 | PC.NURSE ---
[facility] arrives at this time for transport to [facility].
== END 2023-08-16 20:50 | disposition short-term general hospital (02) ==
PROVIDERS: Emergency Provider Emergency Medicine; PCP Family Medicine
DX: I25.110 Atherosclerotic heart disease of native coronary artery with unstable angina pectoris (principal); R07.9 Chest pain, unspecified; Z95.1 Presence of aortocoronary bypass graft; Z79.82 Long term (current) use of aspirin; I10 Essential (primary) hypertension; F17.210 Nicotine dependence, cigarettes, uncomplicated
CPT/HCPCS: 36415; 71275; 80053; 80307; 81001; 83880; 84484; 84703; 85025; 85610; 85730; 93005; 96374; 99285; Q9967

== ENCOUNTER 2023-09-19 13:53 | Outpatient (OUT) | payer OTHER, SELFPAY ==
--- NOTE | 2023-09-19 13:58 | US_ITS ---
[place] [id number] Patient Name: TRAVIS RIVAS MRN: [id number] date: 1980 Sex: F Assigned Patient Location: US Current Patient Location: US Accession/Order Number: [id number] Exam Date: 09/19/2023 14:00 Report Date: 09/19/2023 15:13 At the request of: WILIAN LOZANO Procedure: US thyroid EXAMINATION: US thyroid, 09/19/2023 2:00 PM EST HISTORY: Thyroid Nodule E04.1 COMPARISON: 08/16/2023 TECHNIQUE: Ultrasound of the thyroid gland and adjacent neck was performed. FINDINGS: Thyroid size: Right lobe: 5.0 x 1.7 x 1.5 cm. Left lobe: 5.2 x 1.9 x 1.7 cm. Isthmus: 0.3 cm. Texture: Homogeneous background echotexture without increased vascularity. Estimated total number of nodules >=1cm: 0. Nodule #1: 0.9 x 0.6 x 0.8 cm nodule in the right mid gland (image [id number]), relates to a nodule on previous CT. Composition: cystic/almost completely cystic (0). Echogenicity: anechoic (0). Shape: not [id number] (0). Margins: smooth (0). Echogenic foci: large comet tail artifacts (0). ACR TI-RADS total points: 0. ACR TI-RADS risk category: TR1. ACR TI-RADS recommendation: No further follow-up. Nodule #2: 0.8 x 0.4 x 0.6 cm nodule in the left superior gland (image [id number]) Composition: solid/almost completely solid (2). Echogenicity: hypoechoic (2). Shape: not [id number] (0). Margins: smooth (0). Echogenic foci: none (0). ACR TI-RADS total points: 4. ACR TI-RADS risk category: TR4. ACR TI-RADS recommendation: No further follow-up. Nodule #3: 0.9 x 0.8 x 0.7 cm nodule in the left superior gland posteriorly (image [id number]) Composition: solid/almost completely solid (2). Echogenicity: hypoechoic (2). Shape: [id number] (3), noting this is a conservative estimation with differences in AP to ML diameters of approximately 1 mm. Margins: smooth (0). Echogenic foci: none (0). ACR TI-RADS total points: 7. ACR TI-RADS risk category: TR5. ACR TI-RADS recommendation: Follow-up ultrasound in 1 year. Nodule #4: 0.8 x 0.7 x 0.8 cm nodule in the right mid gland (image [id number]) Composition: solid/almost completely solid (2). Echogenicity: hypoechoic (2). Shape: not kwgpog-eyub-wpcc (0). Margins: smooth (0). Echogenic foci: none (0). ACR TI-RADS total points: 4. ACR TI-RADS risk category: TR4. ACR TI-RADS recommendation: No further follow-up. Please note, there is an additional subcentimeter TR 2 colloid cyst in the right gland which requires no further follow-up per ACR TI RADS criteria, and is not individually reported. US/US thyroid IMPRESSION: 1. Sonographic follow-up in one year is recommended for a 0.9 cm TR5 nodule in the left thyroid. ACR TI-RADS recommendations: TR5 (>=7 points) -FNA if >= 1cm, follow-up if 0.5 -0.9 cm every year for 5 years TR4 (4-6 points) -FNA if >= 1.5cm, follow-up if 1-1.4 cm in 1, 2, 3 and 5 years TR3 (3 points)-FNA if >= 2.5cm, follow-up if 1.5-2.4 cm in 1, 3 and 5 years TR2 (2 points) & TR1 (0 points) -No FNA or follow-up Electronically authenticated by: RUT CRESPO Date: 09/19/2023 15:13
== END 2023-09-19 13:54 | disposition home or self-care (01) ==
LOC: US 13:53
PROVIDERS: PCP Family Medicine; Visit Provider Family Medicine
DX: E04.1 Nontoxic single thyroid nodule (principal); E04.2 Nontoxic multinodular goiter
CPT/HCPCS: 76536

== ENCOUNTER 2023-10-04 12:27 | Outpatient (OUT) | payer OTHER, SELFPAY ==
--- OUTSIDE RECORDS SUMMARY | 2023-10-04 12:32 | XMS_ITS | CCD ---
Author Name Unknown Address [address] [place] [address] [id number] [place] [address] Organization [facility] Care Team Providers Care Cook Manager Name Role Phone HOY, WILIAN Unavailable Unavailable HOY, WILIAN Unavailable Unavailable PAY, MARYAM Referring Unavailable HORANI, ROBINSON Attending Unavailable JANAE, JASON Admitting Unavailable HORANI, ROBINSON Referring Unavailable HORANI, ROBINSON Referring Unavailable HORANI, ROBINSON Referring Unavailable MERZA, NOORALDIN Referring Unavailable ALGHOTHANI, MOHAMAD Attending Unavailable Allergies Allergy Classification Reported Allergen(s) Allergy Type Date of Onset Reaction(s) Facility (1 source) haloperidol Drug Allergy [facility] Repository (1 source) levamisole Drug Allergy [facility] Repository (1 source) nalbuphine Drug Allergy [facility] Repository (1 source) risperiDONE Drug Allergy [facility] Repository (1 source) Haloperidol; Translations: [HALOPERIDOL] Drug Allergy 03-10-2014 [facility] Repository (1 source) Isosorbide; Translations: [ISOSORBIDE MONONITRATE] Drug Allergy 03-10-2014 [facility] Repository (1 source) Nalbuphine; Translations: [NALBUPHINE] Drug Allergy 03-10-2014 [facility] Repository (1 source) risperiDONE; Translations: [RISPERIDONE] Drug Allergy 03-10-2014 [facility] Repository Problems Problem Classification Problem Date Documented Date Episodic/Chronic Coronary atherosclerosis and other heart disease (4 sources) Atherosclerotic heart disease of [place] coronary artery without angina pectoris; Translations: [Coronary atherosclerosis due to lipid rich plaque] Onset: 08-17-2023 Chronic Nonspecific chest pain (2 sources) Chest pain, unspecified; Translations: [Chest pain, unspecified] Onset: 08-17-2023 Episodic Results Test Name Value Interpretation Reference Range Facility Orders Onlyon 09-27-2023 Orders Only [id number] Travis Rivas 1980 F Date Provider Department Center 09/27/2023 TAI MONET [facility] Family History Problem Relation Age of Onset Coronary artery disease Mother Brain Aneurysm Mother Lung cancer Father Family Status - Relation Status Age at Mother Father Normal [facility] Orders Onlyon 09-08-2023 Orders Only [id number] Travis Rivas 1980 F Date Provider Department Center 09/08/2023 TIAN MARIN [facility] Family History Problem Relation Age of Onset Coronary artery disease Mother Brain Aneurysm Mother Lung cancer Father Family Status - Relation Status Age at Mother Father Normal [facility] 30on 08-18-2023 30 Problem: Pain - Adul t Goal: Verbalizes/displays adequate comfort level or baseline comfort level Outcome: Progressing Flowsheets (Taken 08/18/2023 0855) Verbalizes/displays adequate comfort level or baseline comfort level: Encourage patient to monitor pain and request assistance Assess pain using appropriate pain scale Administer analgesics based on type and severity of pain and evaluate response Implement non-pharmacological measures as appropriate and evaluate response Problem: Safety - Adult Goal: Free from fall injury Outcome: Progressing Flowsheets (Taken 08/18/2023 1100) Free from fall injury: Assess patient frequently for physical needs Identify cognitive and physical deficits and behaviors that affect risk of falls [place] fall precautions as indicated by assessment Educate patient/family on patient safety, including physical limitations Instruct patient to call for assistance with activity based on assessment Modify environment to reduce risk of injury Consider OT/PT consult to assist with strengthening/mobility Problem: Discharge Planning Goal: Discharge to home or other facility with appropriate resources Outcome: Progressing Flowsheets (Taken 08/18/2023 0855) Discharge to home or other facility with appropriate resources: Identify barriers to discharge with patient and caregiver Arrange for needed discharge resources and transportation as appropriate Identify discharge learning needs (meds, wound care, etc) Problem: Chronic Conditions and Co-morbidities Goal: Patient's chronic conditions and co-morbidity symptoms are monitored and maintained or improved Outcome: Progressing Flowsheets (Taken 08/18/2023 0855) Care Plan - Patient's Chronic Conditions and Co-Morbidity Symptoms are Monitored and Maintained or Improved: Monitor and assess patient's chronic conditions and comorbid symptoms for stability, deterioration, or improvement Collaborate with multidisciplinary team to address chronic and comorbid conditions and prevent exacerbation or deterioration Update acute care plan with appropriate goals if chronic or comorbid symptoms are exacerbated and prevent overall improvement and discharge Problem: Respiratory - Adult Goal: Achieves optimal ventilation and oxygenation Outcome: Progressing Flowsheets (Taken 08/18/2023854) Achieves optimal ventilation and oxygenation: Assess for changes in respiratory status Assess for changes in mentation and behavior Position to facilitate oxygenation and minimize respiratory effort Oxygen supplementation based on oxygen saturation or arterial blood gases Respiratory therapy support as indicated Problem: Cardiovascular - Adult Goal: Maintains optimal cardiac output and hemodynamic stability Outcome: Progressing Flowsheets (Taken 08/18/2023854) Maintains optimal cardiac output and hemodynamic stability: Monitor blood pressure and heart rate Monitor urine output and notify Licensed Independent Practitioner for values outside of normal range Assess for signs of decreased cardiac output Goal: Absence of cardiac dysrhythmias or at baseline Outcome: Progressing Problem: Metabolic/Fluid and Electrolytes - Adult Goal: Electrolytes maintained within normal limits Outcome: Progressing Flowsheets (Taken 08/18/2023854) Electrolytes maintained within normal limits: Monitor labs and assess patient for signs and symptoms of electrolyte imbalances Administer electrolyte replacement as ordered Monitor response to electrolyte replacements, including repeat lab results as appropriate Goal: Hemodynamic stability and optimal renal function maintained Outcome: Progressing Flowsheets (Taken 08/18/2023854) Hemodynamic stability and optimal renal function maintained: Monitor labs and assess for signs and symptoms of volume excess or deficit Monitor intake, output and patient weight Goal: Glucose maintained within prescribed range Outcome: Progressing Problem: Resident experiences pain/discomfort Goal: I will maintain an acceptable level of pain Outcome: Progressing Problem: Skin/Tissue Integrity - Adult Goal: Skin integrity remains intact Outcome: Progressing Flowsheets (Taken 08/18/2023854) Skin integrity remains intact: Monitor for areas of redness and/or skin breakdown Goal: Incisions, wounds, or drain sites healing without S/S of infection Outcome: Progressing Flowsheets (Taken 08/18/2023854) Incisions, wounds, or drain sites healing without sign and symptoms of infection: ADMISSION and DAILY: Assess and document risk factors for pressure ulcer development The patient is Moderately Stable - Low risk of patient condition declining or worsening The patient's goals for the shift include comfort The clinical goals for the shift include VSS; safety Normal [facility] BASIC METABOLIC PANELon 12-1 Anion gap [Moles/Vol] 9 mmol/L Normal 7-20 [facility] Comment on above: Performed By: #### L [id number] ####[facility] (BEAKER)[address] [address] Calcium [Mass/Vol] 9.3 mg/dL Normal 8.6-10.3 [facility] Comment on above: Performed By: #### L [id number] ####[facility] ([facility])[address] [address] Chloride [Moles/Vol] 109 mmol/L High 98-107 [facility] Comment on above: Performed By: #### L [id number] ####[facility] ([facility])[address] [address] CO2 [Moles/Vol] 22 mmol/L Normal 21-31 [facility] Comment on above: Performed By: #### L [id number] ####[facility] ([facility])[address] [address] Creatinine [Mass/Vol] 0.71 mg/dL Normal 0.60-1.20 [facility] Comment on above: Performed By: #### L [id number] ####[facility] ([facility])[address] [address] GLOMERULAR FILTRATION RATE ML/MIN/1.73 SQ M.PREDICTED 108.8 mL/min/1.73m*2 Normal >60.0 [facility] Comment on above: Result Comment: [facility]???s estimated glomerular filtration rate (eGFR) will no longer include consideration of race in its calculation. The National Kidney Foundation???s eGFR Task Force developed new recommendations for the estimation of the glomerular filtration rate in the [place] They recommend immediate implementation of the new equation refit without the race variable in all laboratories because the calculation does not include race. In addition to not including race in the calculation and reporting, it included diversity in its development, and has acceptable performance characteristics and potential consequences that do not disproportionately affect any one group of individuals. Performed By: #### L [id number] ####[facility] ([facility])[address] [place] [address] Glucose [Mass/Vol] 100 mg/dL Normal 70-100 [facility] Comment on above: Performed By: #### L [id number] ####[facility] ([facility])[address] [facility] [place] [address] Potassium [Moles/Vol] 4.3 mmol/L Normal 3.5-5.1 [facility] Comment on above: Performed By: #### L [id number] ####[facility] ([facility])[address] [place] [address] Sodium [Moles/Vol] 136 mmol/L Normal 136-145 [facility] Comment on above: Performed By: #### L [id number] ####[facility] ([facility])[address] [place] [address] Urea nitrogen [Mass/Vol] 15 mg/dL Normal 7-25 [facility] Comment on above: Performed By: #### L [id number] ####[facility] ([facility])[address] [place] [address] UREA NITROGEN/CREATININE (MASS RATIO) IN SER/PLAS 21.1 Normal [facility] Comment on above: Performed By: #### L [id number] ####[facility] ([facility])[address] [place] [address] MAGNESIUMon 08-18-2023 Magnesium [Mass/Vol] 2.0 mg/dL Normal 1.9-2.7 [facility] Comment on above: Performed By: #### L [id number] #### [facility] ([facility]) [address] [place] [address] 30on 08-17-2023 30 The patient is Moderately Stable - Low risk of patient condition declining or worsening The patient's goals for the shift include Rest and No Chest Pain The clinical goals for the shift include No Chest Pain, VSS, and Possible Cath Problem: Pain - Adult Goal: Verbalizes/displays adequate comfort level or baseline comfort level Outcome: Progressing Flowsheets (Taken 08/17/2023 0800) Verbalizes/displays adequate comfort level or baseline comfort level: Encourage patient to monitor pain and request assistance Assess pain using appropriate pain scale Administer analgesics based on type and severity of pain and evaluate response Problem: Safety - Adult Goal: Free from fall injury Outcome: Progressing Problem: Discharge Planning Goal: Discharge to home or other facility with appropriate resources Outcome: Progressing Flowsheets (Taken 08/17/2023729) Discharge to home or other facility with appropriate resources: Identify barriers to discharge with patient and caregiver Arrange for needed discharge resources and transportation as appropriate Identify discharge learning needs (meds, wound care, etc) Problem: Chronic Conditions and Co-morbidities Goal: Patient's chronic conditions and co-morbidity symptoms are monitored and maintained or improved Outcome: Progressing Flowsheets (Taken 08/17/2023729) Care Plan - Patient's Chronic Conditions and Co-Morbidity Symptoms are Monitored and Maintained or Improved: Monitor and assess patient's chronic conditions and comorbid symptoms for stability, deterioration, or improvement Collaborate with multidisciplinary team to address chronic and comorbid conditions and prevent exacerbation or deterioration Update acute care plan with appropriate goals if chronic or comorbid symptoms are exacerbated and prevent overall improvement and discharge Problem: Respiratory - Adult Goal: Achieves optimal ventilation and oxygenation Outcome: Progressing Flowsheets (Taken 08/17/2023729) Achieves optimal ventilation and oxygenation: Assess for changes in respiratory status Assess for changes in mentation and behavior Position to facilitate oxygenation and minimize respiratory effort Initiate smoking cessation protocol as indicated Encourage broncho-pulmonary hygiene including cough, deep breathe, incentive spirometry Problem: Cardiovascular - Adult Goal: Maintains optimal cardiac output and hemodynamic stability Outcome: Progressing Flowsheets (Taken 08/17/2023729) Maintains optimal cardiac output and hemodynamic stability: Monitor blood pressure and heart rate Monitor urine output and notify Licensed Independent Practitioner for values outside of normal range Assess for signs of decreased cardiac output Goal: Absence of cardiac dysrhythmias or at baseline Outcome: Progressing Flowsheets (Taken 08/17/2023729) Absence of cardiac dysrhythmias or at baseline: Monitor cardiac rate and rhythm Assess for signs of decreased cardiac output Problem: Metabolic/Fluid and Electrolytes - Adult Goal: Electrolytes maintained within normal limits Outcome: Progressing Flowsheets (Taken 08/17/2023729) Electrolytes maintained within normal limits: Monitor labs and assess patient for signs and symptoms of electrolyte imbalances Administer electrolyte replacement as ordered Monitor response to electrolyte replacements, including repeat lab results as appropriate Goal: Hemodynamic stability and optimal renal function maintained Outcome: Progressing Flowsheets (Taken 08/17/2023 0730) Hemodynamic stability and optimal renal function maintained: Monitor labs and assess for signs and symptoms of volume excess or deficit Monitor intake, output and patient weight Monitor urine specific gravity, serum osmolarity and serum sodium as indicated or ordered Goal: Glucose maintained within prescribed range Outcome: Progressing Problem: Resident experiences pain/discomfort Goal: I will maintain an acceptable level of pain Outcome: Progressing Normal [facility] 30 Daily Case Managemen t Update Multidisciplinary rounds have been completed. Barriers to Discharge: Pending clinical course and improvement in clinical condition. Patient to undergo Left Heart Catheterization per Cardiology. Patient on IV heparin and Nitroglycerin. NPO after midnight. Diet: Dietary Orders (From admission, onward) Start Ordered 08/16/232304 Diet NPO Diet effective now Comments: Sips with medications Question: Reason for NPO: Answer: Operation/Procedure 08/16/232307 Physician Expected Discharge Date: 08/20/2023 Discharge Delays: PT Six Click Score: OT Six Click Score: PT Recommendations: OT Recommendations: Does patient understand post acute plan of care? Yes Is expected discharge disposition appropriate for patient?: Yes New Consults: Consult Orders (From admission, onward) Start Ordered 08/17/23 154 Inpatient consult to Cardiothoracic Surgery Once Specialty: Cardiothoracic Surgery Provider: (Not yet assigned) Question Answer [facility] CARDIOTHORACIC SURGERY TEAM Reason for Consult? severe 3 vessel coronary artery disease Level of Consultation Consultation and Management 08/17/23 1546 08/16/232305 Inpatient consult to Cardiology Once Specialty: Cardiology Provider: (Not yet assigned) Question Answer [facility] [employer] CARDIOLOGY TEAM Reason for Consult? NSTEMI Level of Consultation Consultation and Management 08/16/23 2308 Normal [facility] 30 The patient is Moderately Stable - Low risk of patient condition declining or worsening The patient's goals for the shift include The clinical goals for the shift include stable vs Over the shift, the patient continued to make progress toward the following goals. Normal [facility] ANTI-XA (HEPARIN LEVEL)on HEPARIN UNFRACTIONATED (U/ML) IN PPP BY CHROMOGENIC METHOD 0.24 IU/mL Low 0.3-0.7 [facility] Comment on above: Order Comment: Check anti-Xa level every 6 hours while on heparin infusion, or per protocol. Result Comment: Troy roxaban and Apixaban will interfere with the anti Xa assay used to monitor UFH and LMWH. Performed By: #### L [id number] #### [facility] ([facility]) [address] [place] [address] HEPARIN UNFRACTIONATED (U/ML) IN PPP BY CHROMOGENIC METHOD 0.36 IU/mL Normal 0.3-0.7 [facility] Comment on above: Order Comment: Check anti-Xa level every 6 hours while on heparin infusion, or per protocol. Result Comment: Jen roxaban and Apixaban will interfere with the anti Xa assay used to monitor UFH and LMWH. Performed By: #### L [id number] #### [facility] ([facility]) [address] [place] [address] HEPARIN UNFRACTIONATED (U/ML) IN PPP BY CHROMOGENIC METHOD <0.10 Invalid Interpretation Code 0.3-0.7 [facility] Comment on above: Order Comment: Check anti-Xa level every 6 hours while on heparin infusion, or per protocol. Result Comment: [place] roxaban and Apixaban will interfere with the anti Xa assay used to monitor UFH and LMWH. Performed By: #### L [id number] ####[facility] ([facility])[address] [place] [address] APTTon 08-17-2023 ACTIVATED PARTIAL THROMBOPLASTIN TIME IN PPP BY COAGULATION ASSAY 28.5 Seconds Normal 25.0-35.0 [facility] Comment on above: Result Comment: Clin ical significance of the APTT is questionable in the presence of heparin. Performed By: #### L [id number] #### [facility] ([facility]) [address] [place] [address] B-TYPE NATRIURETIC PEPTIDEon 08-17-2023 Natriuretic peptide B (Bld) [Mass/Vol] 47 pg/mL Normal 0-100 [facility] Comment on above: Performed By: #### L [id number] #### [facility] ([facility]) [address] [place] [address] BLOOD CULTUREon 08-17-2023 Bacteria identified Cx Nom (Bld) No growth at 5 days Normal [facility] Comment on above: Order Comment: From a different site than #1. Performed By: #### L [id number] ####[facility] ([facility])[address] [place] [address] CBCon 08-17-2023 Erythrocyte distribution width (RBC) [Ratio] 14.6 % Normal 11.5-15.0 [facility] Comment on above: Performed By: #### L [id number] #### [facility] ([facility]) [address] [place] [address] ERYTHROCYTE MEAN CORPUSCULAR HEMOGLOBIN CONCENTRATION (G/DL) BY AUTOMATED 33.6 g/dL Normal 32.0-35.0 [facility] Comment on above: Performed By: #### L [id number] #### [facility] ([facility]) [address] [address] Hematocrit (Bld) [Volume fraction] 39.9 % Normal 36.0-48.0 [facility] Comment on above: Performed By: #### L [id number] #### [facility] ([facility]) [address] [address] Hemoglobin (Bld) [Mass/Vol] 13.4 g/dL Normal 12.0-15.0 [facility] Comment on above: Performed By: #### L [id number] #### [facility] ([facility]) [address] [address] MCH (RBC) [Entitic mass] 30.8 pg Normal 27.0-33.0 [facility] Comment on above: Performed By: #### L [id number] #### [facility] ([facility]) [address] [address] MCV (RBC) [Entitic vol] 91.7 fL Normal 82.0-98.0 [facility] Comment on above: Performed By: #### L [id number] #### [facility] ([facility]) [address] [place] [address] PLATELETS (10*3/UL) IN BLOOD AUTOMATED COUNT 244 10*3/uL Normal 150-400 [facility] Comment on above: Performed By: #### L [id number] #### [facility] ([facility]) [address] [place] [address] RBC (Bld) [#/Vol] 4.35 10*6/uL Normal 3.80-5.00 [facility] Comment on above: Performed By: #### L [id number] #### [facility] ([facility]) [address] [place] [address] WBC (Bld) [#/Vol] 11.03 10*3/uL High 4.00-10.60 [facility] Comment on above: Performed By: #### L [id number] #### [facility] ([facility]) [address] [place] [address] CBC WITH AUTO DIFFERENTIALon 08-17-2023 Basophils (Bld) [#/Vol] 0.06 10*3/uL Normal 0.00-0.20 [facility] Comment on above: Performed By: #### L [id number] #### [facility] ([facility]) [address] [place] [address] Basophils/100 WBC (Bld) 0.6 % Normal 0.0-1.0 [facility] Comment on above: Performed By: #### L [id number] #### [facility] ([facility]) [address] [place] [address] Eosinophils (Bld) [#/Vol] 0.14 10*3/uL Normal 0.00-0.50 [facility] Comment on above: Performed By: #### L [id number] #### [facility] ([facility]) [address] [place] [address] Eosinophils/100 WBC (Bld) 1.3 % Normal 0.0-6.0 [facility] Comment on above: Performed By: #### L [id number] #### [facility] ([facility]) [address] [place] [address] Erythrocyte distribution width (RBC) [Ratio] 14.6 % Normal 11.5-15.0 [facility] Comment on above: Performed By: #### L [id number] #### [facility] ([facility]) [address] [place] [address] ERYTHROCYTE MEAN CORPUSCULAR HEMOGLOBIN CONCENTRATION (G/DL) BY AUTOMATED 33.5 g/dL Normal 32.0-35.0 [facility] Comment on above: Performed By: #### L [id number] #### [facility] ([facility]) [address] [place] [address] Hematocrit (Bld) [Volume fraction] 40.3 % Normal 36.0-48.0 [facility] Comment on above: Performed By: #### L [id number] #### [facility] ([facility]) [address] [address] Hemoglobin (Bld) [Mass/Vol] 13.5 g/dL Normal 12.0-15.0 [facility] Comment on above: Performed By: #### L [id number] #### [facility] ([facility]) [address] [place] [address] Immature granulocytes (Bld) [#/Vol] 0.03 10*3/uL Normal 0.00-0.20 [facility] Comment on above: Performed By: #### L [id number] #### [facility] ([facility]) [address] [address] Immature granulocytes/100 WBC (Bld) 0.3 % Normal 0.0-1.0 [facility] Comment on above: Performed By: #### L [id number] #### [facility] ([facility]) [address] [address] Lymphocytes (Bld) [#/Vol] 2.18 10*3/uL Normal 1.20-4.00 [facility] Comment on above: Performed By: #### L [id number] #### [facility] ([facility]) [address] [place] [address] Lymphocytes/100 WBC (Bld) 20.6 % Normal 20.0-45.0 [facility] Comment on above: Performed By: #### L [id number] #### [facility] ([facility]) [address] [place] [address] MCH (RBC) [Entitic mass] 30.7 pg Normal 27.0-33.0 [facility] Comment on above: Performed By: #### L [id number] #### [facility] ([facility]) [address] [place] [address] MCV (RBC) [Entitic vol] 91.6 fL Normal 82.0-98.0 [facility] Comment on above: Performed By: #### L [id number] #### [facility] ([facility]) [address] [place] [address] Monocytes (Bld) [#/Vol] 0.69 10*3/uL Normal 0.10-1.00 [facility] Comment on above: Performed By: #### L [id number] #### [facility] ([facility]) [address] [address] Monocytes/100 WBC (Bld) 6.5 % Normal 5.0-12.0 [facility] Comment on above: Performed By: #### L [id number] #### [facility] ([facility]) [address] [address] Neutrophils (Bld) [#/Vol] 7.49 10*3/uL Normal 1.60-7.60 [facility] Comment on above: Performed By: #### L [id number] #### [facility] ([facility]) [address] [address] Neutrophils/100 WBC (Bld) 70.7 % Normal 40.0-72.0 [facility] Comment on above: Performed By: #### L [id number] #### [facility] ([facility]) [address] [place] [address] NRBC (PER 100 WBCS) BY AUTOMATED COUNT 0.0 % Normal 0 [facility] Comment on above: Performed By: #### L [id number] #### [facility] ([facility]) [address] [place] [address] PLATELETS (10*3/UL) IN BLOOD AUTOMATED COUNT 238 10*3/uL Normal 150-400 [facility] Comment on above: Performed By: #### L [id number] #### [facility] ([facility]) [address] [place] [address] RBC (Bld) [#/Vol] 4.40 10*6/uL Normal 3.80-5.00 [facility] Comment on above: Performed By: #### L [id number] #### [facility] ([facility]) [address] [place] [address] WBC (Bld) [#/Vol] 10.59 10*3/uL Normal 4.00-10.60 [facility] Comment on above: Performed By: #### L [id number] #### [facility] ([facility]) [address] [place] [address] COMPREHENSIVE METABOLIC PANE August 08-17-2023 Albumin [Mass/Vol] 4.1 g/dL Normal 3.5-5.7 [facility] Comment on above: Performed By: #### L [id number] #### [facility] ([facility]) [address] [place] [address] ALP [Catalytic activity/Vol] 69 U/L Normal 34-104 [facility] Comment on above: Performed By: #### L [id number] #### [facility] ([facility]) [address] [place] [address] ALT [Catalytic activity/Vol] 16 U/L Normal 7-52 [facility] Comment on above: Performed By: #### L [id number] #### [facility] ([facility]) [address] [place] [address] Anion gap [Moles/Vol] 13 mmol/L Normal 7-20 [facility] Comment on above: Performed By: #### L [id number] #### [facility] ([facility]) [address] [address] AST [Catalytic activity/Vol] 13 U/L Normal 13-39 [facility] Comment on above: Performed By: #### L [id number] #### [facility] ([facility]) [address] [address] Bilirubin [Mass/Vol] 0.3 mg/dL Normal 0.3-1.0 [facility] Comment on above: Performed By: #### L [id number] #### [facility] ([facility]) [address] [address] Calcium [Mass/Vol] 8.9 mg/dL Normal 8.6-10.3 [facility] Comment on above: Performed By: #### L [id number] #### [facility] ([facility]) [address] [address] Chloride [Moles/Vol] 109 mmol/L High 98-107 [facility] Comment on above: Performed By: #### L [id number] #### [facility] ([facility]) [address] [place] [address] CO2 [Moles/Vol] 18 mmol/L Low 21-31 [facility] Comment on above: Performed By: #### L [id number] #### [facility] ([facility]) [address] [place] [address] Creatinine [Mass/Vol] 0.66 mg/dL Normal 0.60-1.20 [facility] Comment on above: Performed By: #### L [id number] #### [facility] ([facility]) [address] [address] GLOMERULAR FILTRATION RATE ML/MIN/1.73 SQ M.PREDICTED 112.2 mL/min/1.73m*2 Normal >60.0 [facility] Comment on above: Result Comment: The [facility]???s estimated glomerular filtration rate (eGFR) will no longer include consideration of race in its calculation. The National Kid[employer] Foundation???s eGFR Task Force developed new recommendations for the estimation of the glomerular filtration rate in the [place] They recommend immediate implementation of the new equation refit without the race variable in all laboratories because the calculation does not include race. In addition to not including race in the calculation and reporting, it included diversity in its development, and has acceptable performance characteristics and potential consequences that do not disproportionately affect any one group of individuals. Performed By: #### L [id number] #### [facility] ([facility]) [address] [address] Glucose [Mass/Vol] 98 mg/dL Normal 70-100 [facility] Comment on above: Performed By: #### L [id number] #### [facility] ([facility]) [address] [address] Potassium [Moles/Vol] 3.8 mmol/L Normal 3.5-5.1 [facility] Comment on above: Performed By: #### L [id number] #### [facility] ([facility]) [address] [address] Protein [Mass/Vol] 6.7 g/dL Normal 6.0-8.3 [facility] Comment on above: Performed By: #### L [id number] #### [facility] ([facility]) [address] [address] Sodium [Moles/Vol] 136 mmol/L Normal 136-145 [facility] Comment on above: Performed By: #### L [id number] #### [facility] ([facility]) [address] [address] Urea nitrogen [Mass/Vol] 14 mg/dL Normal 7-25 [facility] Comment on above: Performed By: #### L [id number] #### [facility] ([facility]) [address] [address] UREA NITROGEN/CREATININE (MASS RATIO) IN SER/PLAS 21.2 Normal [facility] Comment on above: Performed By: #### L [id number] #### [facility] ([facility]) [address] [address] CONSULTon 08-17-2023 CONSULT Inpatient consult to Cardiothoracic Surgery Consult performed by: Semaj Bull NP Consult ordered by: Mina Rodney MD Reason for consult: Redo CABG, Multivessel CAD History Of Present Illness Travis Rivas is a 42 y.o. female with a past medical history including CABG x 1 (NIETO-LAD), hypertension, hyperlipidemia, spinal stenosis, polycystic ovary, chronic migraines, hx of cocaine use, hx of cigarette smoking, and degenerative disc disease with spinal stenosis. She was transferred from [facility] for concerns of managed stable angina and coronary artery disease. The patient endorsing using sublingual nitroglycerin 3-5 times a day. The Troponin level from the outside facility was negative, and EKG did not show significant ST changes but did indicate some arrhythmia and ectopy. She was taken for L/R heart catherization 08/17/2023 and found to have severe three vessel coronary artery disease with patient NIETO to LAD from previous CABG. 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 Rodney and Dr. Flynn. Patient on cath table, hemodynamically stable without chest pain. Past Medical History Hypertension, hyperlipidemia, spinal stenosis, polycystic ovary, chronic migraines, hx of cocaine use, hx of cigarette smoking, and degenerative disc disease with spinal stenosis. Surgical History CABG x 1 (NIETO-LAD). Social History She reports that she quit smoking 7 days ago. Her smoking use included cigarettes. She smoked an average of 1.5 packs per day. She has never used smokeless tobacco. No history on file for alcohol use and drug use. Allergies Haloperidol, Nalbuphine, Risperidone, and Isosorbide mononitrate Medications Medications Prior to Admission Medication Sig Dispense Refill Last Dose aspirin 81 mg chewable tablet Chew 81 mg in the morning. atorvastatin (Lipitor) 20 mg tablet Take 20 mg by mouth in the morning. diphenhydrAMINE (BENADryl) 50 mg tablet Take 100 mg by mouth if needed at bedtime for itching. ibuprofen 800 mg tablet Take 800 mg by mouth every 8 (eight) hours if needed for mild pain (1-3 pain score). metoprolol tartrate (Lopressor) 50 mg tablet Take 25 mg by mouth in the morning and at bedtime. nitroglycerin (Nitrostat) 0.[address] 0.4 mg under the tongue every 5 (five) minutes if needed for chest pain. Review of Systems Review of Systems: All 14 Systems Reviewed and Negative unless otherwise indicated in the above HPI. Physical Exam Vitals reviewed. Constitutional: General: She is not in acute distress. Appearance: Normal appearance. She is normal weight. She is not ill-appearing. HENT: Head: Normocephalic and atraumatic. Nose: Nose normal. Mouth/Throat: Mouth: Mucous membranes are moist. Pharynx: Oropharynx is clear. Eyes: Extraocular Movements: Extraocular movements intact. Conjunctiva/sclera: Conjunctivae normal. Pupils: Pupils are equal, round, and reactive to light. Cardiovascular: Rate and Rhythm: Normal rate and regular rhythm. Pulses: Normal pulses. Heart sounds: Normal heart sounds. No murmur heard. Pulmonary: Effort: Pulmonary effort is normal. No respiratory distress. Breath sounds: Normal breath sounds. Abdominal: General: Abdomen is flat. Bowel sounds are normal. There is no distension. Palpations: Abdomen is soft. Musculoskeletal: General: Normal range of motion. Cervical back: Normal range of motion. Right lower leg: No edema. Left lower leg: No edema. Skin: General: Skin is warm and dry. Capillary Refill: Capillary refill takes less than 2 seconds. Neurological: General: No focal deficit present. Mental Status: She is alert and oriented to person, place, and time. Mental status is at baseline. Last Recorded Vitals Blood pressure 99/62, pulse 62, temperature 36.4 ???C (97.5 ???F), temperature source Temporal, resp. rate 16, height 1.676 m (5' 6 ), weight 100 kg (221 lb 5.5 oz), SpO2 99 %. Relevant Results Complete Echo (TTE) w/wo Imaging Agent, Strain, 3D, Bubble Study Result Date: 08/17/2023 1 1 [facility] [address] [place] [address] [phone] (fax) [facility] Name: TRAVIS RIVAS Study Date: 08/17/2023 12:45 PM B/P: 128 mmHg/90 mmHg HR: 64 bpm Date of : 1980 Location: [facility] Height: 66 in. Age: 42 year(s) Patient Room: 3122 Weight: 223 lb. Gender: Female Patient Status: InPt BSA: 2.09 m2 Indication: Chest Pain, CAD, H/O CABG, Smoker Examination: Echocardiogram (Complete), Lumason Contrast Patient Consent: Procedure explained to patient Exam Details Contrast: I.V. dose of Lumason Conclusions Left Ventricle: The left ventricle is normal size. Global left ventricular systolic function is normal. The calculated 2D EF is 59 %. Left ventricular wall thickness is normal. No regional wall motion abnorma (more content not included)... Normal [facility] CONSULT -- Attestation signed by David Bee MD at 08/17/2023 6:17 PM I personally saw and examined the patient on the same date of service as resident/fellow Dr. Alcantar. I discussed the findings and therapeutic plan with the resident/fellow Dr. Alcantar. I agree with the documentation, except for any edits/updates below. Teaching Physician's Revisions: This is a very nice 42 years old woman with history of coronary artery disease and status post bypass surgery. She was having stable angina was a months and that increase in frequency up to 6 times a day with increase in intensity. Her angina is typical for her previous angina. Her pain resolved only with sublingual nitroglycerin. She is such a high risk for CAD and myocardial infarction we are going to proceed with heart catheterization as a part of managing her high risk unstable angina. Cardiology Consult Note Reason for Consult: NSTEMI HPI: Travis Rivas is a 42 y.o. female who presented the emergency room as a transfer from [facility] with concern for stable angina in the setting of prior history of coronary disease. Per patient account, he has been requiring sublingual nitroglycerin 3-5 times a day. Patient has past medical history including status post NIETO to LAD CABG 03/2012, hypertension, hyperlipidemia, history of cocaine use, and tobacco use disorder. cardiology team was consulted for workup of the possible NSTEMI with plan to perform left heart catheterization on 08/17/2023 per chart review. Prior to transfer per chart review lab work at outside hospital revealed negative troponin and EKG did not reveal any ST changes but did indicate some arrhythmias. Repeat EKG ordered upon transfer. Patient saw cardiology at [facility] on 03/2014 but this was last available cardiology records able to be found on chart review. Patient seen and examined at bedside. Patient states that prior to admission she had chest pain consistent with pressure and burning started in the center of her chest described as substernal radiating to the left jaw and left arm typically happening episodes but transformed to consistent over the last few days. Patient states that prior to that she had had this chest pain wake her up in the middle of the night multiple times. Cardiology ROS: GENERAL: Denies fever, chills, night sweats, weight loss. CARDIOVASCULAR: Endorses improvement with chest pain since starting nitroglycerin, Denies exertional dyspnea, orthopnea/PND, lower extremity edema, palpitations, lightheadedness/dizzin ess, syncope. RESPIRATORY: Denies SOB, coughing, wheezing GI: Denies abdominal pain, nausea/vomiting. PSYCH: Denies anxiety. Past Medical History She has no past medical history on file. Surgical History She has no past surgical history on file. Social History She reports that she quit smoking 6 days ago. Her smoking use included cigarettes. She smoked an average of 1.5 packs per day. She has never used smokeless tobacco. No history on file for alcohol use and drug use. Family History No family history on file. Allergies Haloperidol, Nalbuphine, Risperidone, and Isosorbide mononitrate Medications Medications Prior to Admission Medication Sig Dispense Refill Last Dose aspirin 81 mg chewable tablet Chew 81 mg in the morning. atorvastatin (Lipitor) 20 mg tablet Take 20 mg by mouth in the morning. diphenhydrAMINE (BENADryl) 50 mg tablet Take 100 mg by mouth if needed at bedtime for itching. ibuprofen 800 mg tablet Take 800 mg by mouth every 8 (eight) hours if needed for mild pain (1-3 pain score). metoprolol tartrate (Lopressor) 50 mg tablet Take 25 mg by mouth in the morning and at bedtime. nitroglycerin (Nitrostat) 0.[address] 0.4 mg under the tongue every 5 (five) minutes if needed for chest pain. Last Recorded Vitals Patient Vitals for the past 24 hrs: BP Temp Temp src Pulse Resp SpO2 Height Weight 08/17/23 0717 -- -- Temporal -- -- -- -- -- 08/17/23 0700 -- -- -- -- -- 95 % -- -- 08/17/23 0400 111/75 -- -- 58 19 95 % -- -- 08/17/23 0040 125/86 -- -- 72 24 99 % -- -- 08/16/23 2235 168/90 36.8 ???C (98.2 ???F) -- 65 19 100 % 1.676 m (5' 6 ) 102 kg (223 lb 15.8 oz) Physical Examination: Physical Exam Constitutional: Appearance: Normal appearance. She is obese. HENT: Head: Normocephalic and atraumatic. Mouth/Throat: Mouth: Mucous membranes are moist. Pharynx: Oropharynx is clear. Eyes: Extraocular Movements: Extraocular movements intact. Pupils: Pupils are equal, round, and reactive to light. Cardiovascular: Pulses: Normal pulses. Heart sounds: Normal heart sounds. Pulmonary: Effort: Pulmonary effort is normal. Breath sounds: Normal breath sounds. Abdominal: General: Abdomen is flat. Palp (more content not included)... Normal [facility] HEMOGLOBIN A1Con 08-17-2023 Glucose [Mass/Vol] 117 mg/dL Normal [facility] Comment on above: Performed By: #### L [id number] ####[facility] ([facility])[address] [address] HbA1c (Bld) [Mass fraction] 5.7 % Normal 4.0-6.0 [facility] Comment on above: Performed By: #### L [id number] ####[facility] ([facility])[address] [place] [address] HPon 08-17-2023 HP H&P reviewed. The patient was examined and there are no changes to the H&P. 42 y.o. female who presented the emergency room as a transfer from [facility] with concern for stable angina in the setting of prior history of coronary disease. Per patient account, he has been requiring sublingual nitroglycerin 3-5 times a day. Patient has past medical history including status post NIETO to LAD CABG 03/2012, hypertension, hyperlipidemia, history of cocaine use, and tobacco use disorder. Patient will undergo LHC to evaluate for CAD and look for patency of previously placed graft. Normal [facility] LACTIC ACID WITH 4 HOUR REFL EXon 08-17-2023 LACTATE (MMOL/L) IN SER/PLAS 1.2 mmol/L Normal 0.5-2.2 [facility] Comment on above: Performed By: #### L [id number] #### [facility] ([facility]) [address] [place] [address] LIPID PANELon 08-17-2023 CHOL/HDL 4.4 mg/dL Normal [facility] Comment on above: Performed By: #### L [id number] #### [facility] ([facility]) [address] [place] [address] Cholesterol [Mass/Vol] 148 mg/dL Normal 120-200 [facility] Comment on above: Performed By: #### L [id number] #### [facility] ([facility]) [address] [place] [address] Magnesium [Mass/Vol] 119 mg/dL Normal 40-149 [facility] Comment on above: Result Comment: TRIG LYCERIDE REFERENCE RANGE: 20 YEARS AND OLDER CARDIOVASCULAR RISK LESS THAN 150 mg/dL LOW RISK 150 TO 199 mg/dL BORDERLINE RISK 200 mg/dL AND GREATER HIGH RISK Performed By: #### L [id number] #### [facility] ([facility]) [address] [place] [address] Magnesium [Mass/Vol] 90 mg/dL Normal 0-160 [facility] Comment on above: Performed By: #### L [id number] #### [facility] ([facility]) [address] [place] [address] Magnesium [Mass/Vol] 34 mg/dL Normal 23-92 [facility] Comment on above: Performed By: #### L [id number] #### [facility] ([facility]) [address] [address] NON HDL CHOL. (LDL+VLDL) 114 Normal [facility] Comment on above: Performed By: #### L [id number] #### [facility] ([facility]) [address] [place] [address] TOTAL VLDL-C 24 mg/dL Normal 0-40 [facility] Comment on above: Performed By: #### L [id number] #### [facility] ([facility]) [address] [place] [address] MAGNESIUMon 08-17-2023 Magnesium [Mass/Vol] 1.7 mg/dL Low 1.9-2.7 [facility] Comment on above: Performed By: #### L [id number] #### [facility] ([facility]) [address] [place] [address] PHOSPHORUSon 08-17-2023 Magnesium [Mass/Vol] 3.4 mg/dL Normal 2.5-5.0 [facility] Comment on above: Performed By: #### L [id number] #### [facility] ([facility]) [address] [place] [address] PROTIME-INRon 08-17-2023 INR IN PPP BY COAGULATION ASSAY 1.00 Normal 0.90-1.10 [facility] Comment on above: Result Comment: [facility] P RECOMMENDED INR FOR WARFARIN THERAPY CONDITION INR PROPHYLAXIS OF VENOUS THROMBOSIS 2-3 (HIGH-RISK SURGERY) TREATMENT OF VENOUS THROMBOSIS 2-3 TREATMENT OF PULMONARY EMBOLISM 2-3 PREVENTION OF SYSTEMIC EMBOLISM: 2-3 ACUTE MYOCARDIAL INFARCTION TISSUE HEART VALVES VALVULAR HEART DISEASE ATRIAL FIBRILLATION RECURRENT SYSTEMIC EMBOLISM MECHANICAL HEART VALVE 2.5-3.5 FROM: ORAL ANTICOAGULANTS. MECHANISM OF ACTION, CLINICAL EFFECTIVENESS, AND OPTIMAL THERAPEUTIC RANGE. CHEST 1995;108:231S-246S. Performed By: #### L [id number] #### [facility] ([facility]) [address] [place] [address] PROTHROMBIN TIME (PT) IN PPP BY COAGULATION ASSAY 13.2 Seconds Normal 12.3-14.8 [facility] Comment on above: Performed By: #### L [id number] #### [facility] ([facility]) [address] [place] [address] TOXICOLOGY PANEL URINEon AMPHETAMINE+METHAMP HETAMINE SCREEN (PRESENCE) IN URINE Negative Normal Negative [facility] Comment on above: Performed By: #### L [id number] #### [facility] ([facility]) [address] [place] [address] BARBITURATES PRESENCE IN URINE BY SCREEN METHOD Negative Normal Negative [facility] Comment on above: Performed By: #### L [id number] #### [facility] ([facility]) [address] [place] [address] Benzodiazepines Ql (U) Negative Normal Negative [facility] Comment on above: Performed By: #### L [id number] #### [facility] ([facility]) [address] [place] [address] CANNABINOID (PRESENCE) IN URINE BY SCREEN METHOD Positive Abnormal Negative [facility] Comment on above: Performed By: #### L [id number] #### [facility] ([facility]) [address] [place] [address] Cocaine Ql (U) Negative Normal Negative [facility] Comment on above: Performed By: #### L [id number] #### [facility] ([facility]) [address] [place] [address] METHADONE (PRESENCE) IN URINE BY SCREEN METHOD Negative Normal Negative [facility] Comment on above: Performed By: #### L [id number] #### [facility] ([facility]) [address] [place] [address] OPIATES (PRESENCE) IN URINE BY SCREEN METHOD Negative Normal Negative [facility] Comment on above: Performed By: #### L [id number] #### [facility] ([facility]) [address] [place] [address] PHENCYCLIDINE PRESENCE IN URINE BY SCREEN METHOD Negative Normal Negative [facility] Comment on above: Performed By: #### L [id number] #### [facility] ([facility]) [address] [place] [address] Propoxyphene Screen Ql (U) Negative Normal Negative [facility] Comment on above: Performed By: #### L [id number] #### [facility] ([facility]) [address] [place] [address] TRICYCLIC ANTIDEPRESSANTS (PRESENCE) IN URINE Negative Normal Negative [facility] Comment on above: Performed By: #### L [id number] #### [facility] ([facility]) [address] [place] [address] TROPONIN Ion 08-17-2023 Troponin I.cardiac [Mass/Vol] 0.00 ng/mL Normal 0.00-0.04 [facility] Comment on above: Performed By: #### L [id number] ####[facility] [facility] ([facility])[address] [place] [address] Troponin I.cardiac [Mass/Vol] 0.01 ng/mL Normal 0.00-0.04 [facility] Comment on above: Performed By: #### L [id number] #### [facility] ([facility]) [address] [place] [address] Troponin I.cardiac [Mass/Vol] 0.04 ng/mL Normal 0.00-0.04 [facility] Comment on above: Performed By: #### L [id number] #### [facility] ([facility]) [address] [address] TSH3 REFLEX TO FT4on 023 THYROTROPIN (MIU/L) IN SER/PLAS BY DETECTION LIMIT <= 0.05 MIU/L 2.69 mIU/L Normal 0.34-5.60 [facility] Comment on above: Performed By: #### L [id number] ####[facility] ([facility])[address] [place] [address] URINALYSIS WITH REFLEX CULTU REon 08-17-2023 BILIRUBIN, TOTAL PRESENCE IN URINE Negative Normal Negative [facility] Comment on above: Order Comment: Micro scopics not performed on urines with negative chemical reactions unless requested on original order. Performed By: #### L [id number] ####[facility] ([facility])[address] [place] [address] Clarity (U) Clear Normal Clear [facility] Comment on above: Order Comment: Micro scopics not performed on urines with negative chemical reactions unless requested on original order. Performed By: #### L [id number] ####[facility] ([facility])[address] [place] [place] [address] Color (U) Yellow Normal Yellow [facility] Comment on above: Order Comment: Micro scopics not performed on urines with negative chemical reactions unless requested on original order. Performed By: #### L [id number] ####[facility] ([facility])[address] [place] [address] Glucose (U) [Mass/Vol] Negative Normal Negative [facility] Comment on above: Order Comment: Micro scopics not performed on urines with negative chemical reactions unless requested on original order. Performed By: #### L [id number] ####[facility] ([facility])[address] [place] [address] HEMOGLOBIN PRESENCE IN URINE Negative Normal Negative [facility] Comment on above: Order Comment: Micro scopics not performed on urines with negative chemical reactions unless requested on original order. Performed By: #### L [id number] ####[facility] ([facility])[address] [place] [address] Ketones Ql (U) Negative Normal Negative [facility] Comment on above: Order Comment: Micro scopics not performed on urines with negative chemical reactions unless requested on original order. Performed By: #### L [id number] ####[facility] ([facility])[address] [facility] [place] [address] LEUKOCYTE ESTERASE PRESENCE IN URINE BY TEST STRIP Negative Normal Negative [facility] Comment on above: Order Comment: Micro scopics not performed on urines with negative chemical reactions unless requested on original order. Performed By: #### L [id number] ####[facility] ([facility])[address] [facility] [place] [address] NITRITE PRESENCE IN URINE Negative Normal Negative [facility] Comment on above: Order Comment: Micro scopics not performed on urines with negative chemical reactions unless requested on original order. Performed By: #### L [id number] ####[facility] ([facility])[address] [place] [address] pH (U) 5.0 [pH] Normal 5.0-8.0 [facility] Comment on above: Order Comment: Micro scopics not performed on urines with negative chemical reactions unless requested on original order. Performed By: #### L [id number] ####[facility] ([facility])[address] [place] [address] Protein (U) [Mass/Vol] Negative Normal Negative [facility] Comment on above: Order Comment: Micro scopics not performed on urines with negative chemical reactions unless requested on original order. Performed By: #### L [id number] ####[facility] ([facility])[address] [place] [address] Specific gravity (U) [Rel density] 1.024 High 1.015-1.020 [facility] Comment on above: Order Comment: Micro scopics not performed on urines with negative chemical reactions unless requested on original order. Performed By: #### L [id number] ####[facility] ([facility])[address] [place] [address] COVID-19 Lab Corpon 09-06-19 22 SARS-CoV-2 (COVID-19) RNA PETAR+probe Ql (Unsp spec) Not detected Normal Not Detected [facility] Comment on above: Order Comment: Healt hcare Worker?: N Result Comment: This nucleic acid amplification test was developed and its performance characteristics determined by [employer]. Nucleic acid amplification tests include RT- PCR and TMA. This test has not been FDA cleared or approved. This test has been authorized by FDA under an Emergency Use Authorization (EUA). This test is only authorized for the duration of time the declaration that circumstances exist justifying the authorization of the emergency use of in vitro diagnostic tests for detection of SARS-CoV-2 virus and/or diagnosis of COVID-19 infection under section 564(b)(1) of the Act, 21 U.S.C. 360bbb-3(b) (1), unless the authorization is terminated or revoked sooner. When diagnostic testing is negative, the possibility of a false negative result should be considered in the context of a patient's recent exposures and the presence of clinical signs and symptoms consistent with COVID-19. An individual without symptoms of COVID-19 and who is not shedding SARS-CoV-2 virus would expect to have a negative (not detected) result in this assay. Performed at: [address] [id number] [employer]ipract[facility] Physician: James Calles PhD, Phone: [phone] PERFORMED BY: [facility] [address] [place] [address] PATHOLOGIST POURER DENNISE BEATTY M.D. Performed By: #### C ORONAVIRUS #### [facility] , COVID-19 Antigenon 1 COVID-19 Antigen Healthcare Worker?: N Donna Reference Donna Reference Negative SARS-CoV+SARS-CoV-2 (COVID-19) Ag [Presence] in Respiratory specimen by Rapid immunoassay Negative for SARS Antigen by KIER[facility] COVID19 Blank Space Donna Disclaimer Negative results, from patients with symptom Donna Disclaimer onset beyond five days, should be treated as Donna Disclaimer presumptive and confirmation with a molecular Donna Disclaimer assay, if necessary, for patient management, Donna Disclaimer may be performed. Negative results do not rule Donna Disclaimer out COVID-19 and should not be used as the sole Donna Disclaimer basis for treatment or patient management Donna Disclaimer decisions, including infection control decisions. Donna Disclaimer Negative results should be considered in the Donna Disclaimer context of a patient's recent exposures, history Donna Disclaimer and the presence of clinical signs and symptoms Donna Disclaimer consistent with COVID-19. COVID19 Blank Space Donna Disclaimer The Donna SARS Antigen KIERRA does not differentiate Donna Disclaimer between SARS-CoV and SARS-CoV-2. COVID19 Blank Space Donna Disclaimer This test was developed and its performance Donna Disclaimer characteristic determined by [employer] and Donna Disclaimer validated at [facility]. This Donna Disclaimer test has not been FDA cleared or approved. This Donna Disclaimer test has been authorized by FDA under an Emergency Use Donna Disclaimer Authorization (EUA). This test has been validated Donna Disclaimer in accordance with the FDA's Guidance Document (Policy Donna Disclaimer for Diagnostics Testing in Laboratories Certified to Donna Disclaimer Perform High Complexity Testing under CLIA prior to Donna Disclaimer Emergency Use Authorization for Coronavirus Donna Disclaimer is during the Public Health Emergency) Donna Disclaimer issued on December 05, 2019. This test is only authorized Donna Disclaimer for the duration of time the declaration that Donna Disclaimer circumstances exist justifying the authorization of Donna Disclaimer the emergency use of in vitro diagnostic tests for Donna Disclaimer detection of SARS-CoV-2 virus and/or diagnosis of Donna Disclaimer COVID-19 infection under section 564(b)(1) of the Donna Disclaimer Act, 21 U.S.C. 360bbb-3(b)(1), unless the Donna Disclaimer authorization is terminated or revoked sooner. PERFORMED BY: [place] [address] PATHOLOGIST POURER DENNISE BEATTY M.D. [facility] Comment on above: Performed By: #### S ALEENA COVID-19 DONNA #### [address] ECG 12 lead ECGon 07-11-2021 ECG 12 lead ECG [facility] [place] [address] Electrocardiograph Report Signed Patient: Travis Rivas MR#: [id number] : 1980 Acct:[id number] Age/Sex: 40 / F ADM Date: 07/11/21 Loc: ER Room: Type: [facility] ER Attending Dr: Ordering Provider: AZIZA Zavala Date of Service: 07/11/2103/24/719 ECG/ECG 12 lead ECG: Shortness of Breath/Dyspnea Copies to: Test Reason : Blood Pressure : / mmHG Vent. Rate : 078 BPM Atrial Rate : 078 BPM P-R Int : 146 ms QRS Dur : 086 ms QT Int : 402 ms P-R-T Axes : 061 092 073 degrees QTc Int : 458 ms Normal sinus rhythm Rightward axis Borderline ECG No previous ECGs available Confirmed by MARYAM ASHLEY DO ([id number]) on 07/13/2021 12:45:10 PM Referred By: Electronically Signed By:MARYAM ASHLEY DO Transcribed By: MUS Signed By Maryam Ashley DO 07/13 1245 Normal [facility] Donna Ag Negativeon 07-11-20 Donna Ag Negative Negative Normal Negative [facility] Comment on above: Result Comment: This is a duplicate Donna SARS Antigen (KIERRA) result to be used for statistical tracking purpose only. PERFORMED BY: [place] [address] PATHOLOGIST POURER DENNISE BEATTY M.D. Performed By: #### S ELMA FLOOD-19 DONNA #### [address] XR chest 1V portableon 07-11 XR chest 1V portable [facility] Main [place] [address] [place] [address] XRay Report Signed Patient: Travis Rivas MR#: [id number] : 1980 Acct:[id number] Age/Sex: 40 / F ADM Date: 07/11/21 Loc: ER Room: Type: [facility] ER Attending Dr: Ordering Provider: AIZZA Zavala Date of Service: 07/11/21 XR/XR chest 1V portable: Shortness of Breath/Dyspnea Copies to: AZIZA Zavala Chest 07/11/2021. CLINICAL DATA: Cough and shortness of breath. FINDINGS: A single portable frontal view of the chest was obtained. No prior study is available for comparison. The patient is status post sternotomy. The cardiac silhouette is normal in size. The pulmonary vasculature is within normal limits. No pulmonary consolidation or collapse is identified. No pneumothorax or pleural effusion is seen. XR/XR chest 1V portable IMPRESSION: No acute cardiopulmonary disease. Impression dictated by: Ralf Serrano Jr., M.D.07/11/2021 3:02 PM Dictation Location: [place] [address] Transcribed By: [facility] 07/11/21 1502 Dictated By: Ralf Serrano Jr, MD 07/11/21 1456 Signed By: 07/11/21 1502 [facility] Encounters Encounter Date Encounter Type Care Provider Facility Start: 09-08-2023 End: 09-08-2023 ambulatory SYLVIA DEGROOT [facility] Start: 08-17-2023 Evaluation and management of inpatient ROBINSON JUDGE [facility] Start: 08-17-2023 Evaluation and management of inpatient ROBINSON JUDGE [facility] Start: 08-17-2023 Evaluation and management of inpatient ROBINSON JUDGE [facility] Start: 08-17-2023 End: 08-18-2023 Evaluation and management of inpatient MARYAM DICK [facility] Start: 03-24-2018 Patient encounter WILIAN LOZANO Facil ity:H1 Payers Date Payer Category Payer Unknown [id number] 1959 Self-pay [id number] Progress note 09-08-2023 Note Date & Type Note Facility 09-08-2023 Note nisa [facility] Progress note 09-08-2023 Note Date & Type Note Facility 09-08-2023 Note Patient here for [facility] and PCI. Still has some pressure in her chest. She's feeling much better though. Plan is for staged intervention. Review of Systems Cardiovascular: Positive for chest pain ( pressure ) and palpitations ( 1 or 2 once in awhile ). Respiratory: Positive for cough (improving). All other systems reviewed and are negative. [facility] Clinical Note 08-18-2023 Note Date & Type Note Facility 08-18-2023 Note Discharge education completed with patient at bedside; verbalized understanding. Copy of signed AVS placed in paper chart. Prescriptions sent electronically to requested pharmacy. Remarketing Rep RN escorted patient to main entrance lobby. [facility] Progress note 08-18-2023 Note Date & Type Note Facility 08-18-2023 Note [facility] INPAT IENT PROGRESS NOTE Reason for follow up: [place] s/p PCI with 2 stents Subjective Awake, dressed looking forward to going home and feels great. Ambulating in room w/o SOB, chest discomfort, dizziness, palpitations. Discussed findings on LHC, and routine post arteriotomy care: no lifting >2# for 2 days then no >10 lbs for remaining 5 days; okay to shower, do not immerse in water x1 week, monitor for infection. Absolute importance of non-interrupted dapt for 1st 6 mos and will likely continue indefinitely. Tele: SR ALLERGIES Allergies Allergen Reactions Haloperidol Anaphylaxis and Unknown Nalbuphine Anaphylaxis and Unknown Risperidone Anaphylaxis and Unknown Isosorbide Mononitrate Headache Headache CURRENT MEDS Objective Patient Vitals for the past 24 hrs: BP Temp Temp src Pulse Resp SpO2 Weight 08/18/23 0855 126/77 -- -- 65 11 97 % -- 08/18/23 0530 99/62 36.4 ???C (97.5 ???F) Temporal 62 16 99 % 100 kg (221 lb 5.5 oz) 08/18/23 0100 98/64 -- -- 71 17 98 % -- 08/18/23 0000 93/59 -- -- 61 16 100 % -- 08/17/23 2300 103/62 -- -- 61 17 100 % -- 08/17/23 2200 112/83 -- -- 52 12 98 % -- 08/17/23 2100 114/73 -- -- 79 17 100 % -- 08/17/23 2000 108/73 36.8 ???C (98.2 ???F) Temporal 60 14 97 % -- 08/17/23 1900 121/72 -- -- 60 14 98 % -- BP 126/77 (BP Location: Left arm, Patient Position: Lying) Pulse 65 Temp 36.4 ???C (97.5 ???F) (Temporal) Resp 11 Ht 1.676 m (5' 6 ) Wt 100 kg (221 lb 5.5 oz) SpO2 97% BMI 35.73 kg/m??? Wt Readings from Last 3 Encounters: 08/18/23 100 kg (221 lb 5.5 oz) General: Awake, alert, appropriate mood / affect, NAD Eyes: anicteric sclera. Non-injected conjunctiva. No xanthelasmas Neck: No elevated JVP. No carotid bruit Pulm: Breath sounds clear to ascultation bilaterally with no wheeze, crackles or rhonchi Cards: HRRR , NL S1, S2. No S3 or S4 gallop. Murmur: none Abd: Soft, Nontender, physiologic bowel sounds are present Extr: Lower extremity edema: none. DP pulses present bilaterally Left wrist arteriotomy site occlusive dressing removed, cleansed with alcohol wipe and bandaid applied. No hematoma or significant. bruising. Skin: warm, dry, well perfused Neuro: A&Ox3, No gross deficits Lab Results Component Value Date NA 136 08/18/2023 K 4.3 08/18/2023 CL 109 (H) 08/18/2023 ANIONGAP 9 08/18/2023 BUN 15 08/18/2023 CREATININE 0.71 08/18/2023 CALCIUM 9.3 08/18/2023 MG 2.0 08/18/2023 PHOS 3.4 08/16/2023 Lab Results Component Value Date BILITOT 0.3 08/16/2023 ALKPHOS 69 08/16/2023 AST 13 08/16/2023 ALT 16 08/16/2023 PROT 6.7 08/16/2023 ALBUMIN 4.1 08/16/2023 Lab Results Component Value Date CHOLESTEROL 148 08/16/2023 TRIGLYCERIDES 119 08/16/2023 HDL 34 08/16/2023 LDL CALC 90 08/16/2023 Lab Results Component Value Date BNP 47 08/16/2023 Lab Results Component Value Date TSH 2.69 08/16/2023 No results found for: DIGOXIN LVL Lab Results Component Value Date HGBA1C 5.7 08/16/2023 Lab Results Component Value Date WBC 11.03 (H) 08/17/2023 RBC 4.35 08/17/2023 HGB 13.4 08/17/2023 HCT 39.9 08/17/2023 MCV 91.7 08/17/2023 MCH 30.8 08/17/2023 MCHC 33.6 08/17/2023 RDW 14.6 08/17/2023 NEUTOPHILPCT 70.7 08/16/2023 LYMPHOPCT 20.6 08/16/2023 MONOPCT 6.5 08/16/2023 EOSPCT 1.3 08/16/2023 BASOPCT 0.6 08/16/2023 NEUTROABS 7.49 08/16/2023 LYMPHSABS 2.18 08/16/2023 MONOSABS 0.69 08/16/2023 EOSABS 0.14 08/16/2023 BASOSABS 0.06 08/16/2023 PLT 244 08/17/2023 NRBC 0.0 08/16/2023 No X-ray results found for the past 24 hours CV Testing: Encounter Date: 08/16/23 ECG 12 lead Result Value Ventricular Rate 56 Atrial Rate 56 CO Interval 152 QRS DURATION 88 QT Interval 452 QTC CALCULATION(BAZETT) 436 P Hazel 35 R-Hazel 85 T Wave Hazel 79 Impression Sinus bradycardia Nonspecific ST abnormality Abnormal ECG When compared with ECG of 17-AUG-2023 09:14, No significant change was found Confirmed by Ector Paniagua ([id number]) on 08/18/2023 8:48:38 AM 08/17/23 [facility] with NIETO to LAD patent; 90% stenoses of prox followed by 90% stenosis at takeoff of large OM. Both treated with 1 RK each. Alos 90% ostial stenosis of diagonal branch. RCA with 70% prox and 75% mid disease, considering staged PCI ot RCA and diagonal branches Procedure Performed: Bilateral selective coronary angiogram. Bypass graft angiogram. Successful balloon angioplasty and drug eluting stenting of 90% stenosis in the circumflex coronary artery, with reduction of the stenosis to 0% by a Synergy XD 3.0 x 28 mm drug eluting stent postdilated to 3.25 mm at high pressures [up to 3.4 mm]. Administration of intracoronary nitroglycerin. Coronary angiography: This is a right dominant circulation. Left Main: This arises from the left coronary cusp. It bifurcates into left anterior descending and circumflex vessels. The left main has mild ostial disease. Left anterior descending: This (more content not included)... [facility] Clinical Note 08-18-2023 Note Date & Type Note Facility 08-18-2023 Note Hospital Medicine Discharge Summary Final Discharge Diagnosis: Coronary artery disease involving [place] coronary artery of [place] heart with unstable angina pectoris ([facility]) Admission Diagnosis: Chest pain [R07.9] Hospital course: 42 y.o. female who came from home with NSTEMI. This is a 42-year-old female with a medical history including CABG, hypertension, hyperlipidemia, spinal stenosis, polycystic ovary, chronic migraines, a history of cocaine use, a history of cigarette smoking, and degenerative disc disease with spinal stenosis. The patient was transferred from [facility] for concerns of managed stable angina and coronary artery disease. Notably, the patient has been using sublingual nitroglycerin 3-5 times a day. The cardiology team was consulted, and the plan is to perform a left heart catheterization tomorrow, with a fasting order and workup for possible non-STEMI. The troponin level from the outside facility was negative, and the EKG did not show significant ST changes but did indicate some arrhythmia and ectopy. # Unstable angina s/p PCI to LCX: # CAD s/p CABG: - Continue aspirin, Plavix, Lopressor and Lipitor (increase to 40 mg due to LDL 90). - Follow up with Cardio for staged intervention to right coronary artery and possibly the diagonal branch of the LAD. # Tobacco use, recently quit. Dear Dr. Joyce MD, Travis is advised to follow up with you within 1-2 weeks. Follow-up with: Cardiology Scheduled appointments: Future Appointments Date Time Provider Department Center 09/08/2023 11:00 AM Sylvia Degroot MD [facility] Your medication list START taking these medications Instructions Last Dose Given Next Dose Due clopidogrel 75 mg tablet Commonly known as: Plavix Start taking on: 2023 Take 1 tablet (75 mg) by mouth in the morning. Do not start before 2023. isosorbide mononitrate ER 30 mg 24 hr tablet Commonly known as: Imdur Start taking on: 2023 Take 1 tablet (30 mg) by mouth in the morning for 90 doses. Do not crush or chew. Do not start before 2023. CHANGE how you take these medications Instructions Last Dose Given Next Dose Due atorvastatin 40 mg tablet Commonly known as: Lipitor What changed: medication strength how much to take when to take this Take 1 tablet (40 mg) by mouth at bedtime for 90 doses. CONTINUE taking these medications Instructions Last Dose Given Next Dose Due aspirin 81 mg chewable tablet diphenhydrAMINE 50 mg tablet Commonly known as: BENADryl metoprolol tartrate 50 mg tablet Commonly known as: Lopressor nitroglycerin 0.4 mg SL tablet Commonly known as: Nitrostat STOP taking these medications ibuprofen 800 mg tablet Where to Get Your Medications These medications were sent to [facility]/pharmacy #[id number] - [place], [place] - [address] [facility] [address] [place] [address] atorvastatin 40 mg tablet clopidogrel 75 mg tablet isosorbide mononitrate ER 30 mg 24 hr tablet Travis is allergic to haloperidol, nalbuphine, risperidone, and isosorbide mononitrate. Disposition: Home or Self Care Discharge Condition: Stable Code Status: Full Code Diagnostic Results Hematology: Results from last 7 days Lab Units 08/17/23 0450 08/16/23 2341 WBC AUTO 10*3/uL 11.03* 10.59 HEMOGLOBIN g/dL 13.4 13.5 HEMATOCRIT % 39.9 40.3 MCV fL 91.7 91.6 PLATELETS AUTO 10*3/uL 244 238 INR -- 1.00 Chemistry: Results from last 7 days Lab Units 08/18/23 0416 08/16/23 2341 SODIUM mmol/L 136 136 POTASSIUM mmol/L 4.3 3.8 CHLORIDE mmol/L 109* 109* CO2 mmol/L 22 18* BUN mg/dL 15 14 CREATININE mg/dL 0.71 0.66 GLUCOSE mg/dL 100 98 MAGNESIUM mg/dL 2.0 1.7* CALCIUM mg/dL 9.3 8.9 PHOSPHORUS mg/dL -- 3.4 Results from last 7 days Lab Units 08/16/23 2341 AST U/L 13 ALT U/L 16 ALK PHOS U/L 69 BILIRUBIN TOTAL mg/dL 0.3 Test Results Pending At Discharge: Pending Labs Order Current Status Blood culture, peripheral #1 Preliminary result Blood culture, peripheral #2 Preliminary result Diet at the time of discharge: cardiac diet Nutrition Screen Activity: Normal activity as tolerated Objective Blood pressure 126/77, pulse 65, temperature 36.4 ???C (97.5 ???F), temperature source Temporal, resp. rate 11, height 1.676 m (5' 6 ), weight 100 kg (221 lb 5.5 oz), SpO2 97 %. Cardiology: Normal rate, regular rhythm. Lungs: Clear to auscultation, no wheezes, rales or rhonchi, symmetric air entry. Abdomen: Soft, non tender, non distended. Total time for discharge - review of data, exam, discussion with providers and care-team, med-rec and orders, arranging follow up, counseling of patient and/or family and documentation was 30 minutes. Signed Robinson Judge MD Hospital Medicine 08/18/2023 10:38 AM [facility] Clinical Note 08-17-2023 Note Date & Type Note Facility 08-17-2023 Note Patient: Travis mac Procedure Information Date/Time: 08/17/23 1530 Procedure: Left heart cath Location: [facility] (Cath) Providers: Mina Rodney MD Clinical information reviewed: Tobacco Allergies Meds Med Hx Surg Hx Fam Hx Soc Hx Physical Exam Airway Mallampati: II Cardiovascular Rhythm: regular Rate: normal Dental Pulmonary - normal exam Abdominal - normal exam Anesthesia Plan ASA 3 other (Conscious sedation) intravenous induction Anesthetic plan and risks discussed with patient. Use of blood products discussed with patient who consented to blood products. Plan discussed with attending. Additional Equipment Requests [facility] Progress note 08-17-2023 Note Date & Type Note Facility 08-17-2023 Note 08/17/23 1133 Admission Assessment Questions Verify insurance with patient Yes (Patient has medical mutual insurance - does not have card) Do you understand medical disease or what brought you into the hospital? Yes Who is your current PCP? Dr. Wilian Bhat Can I schedule a follow up appointment for you at the time of discharge? No Do you understand why you are taking your current medications? Yes Are you taking your medications as prescribed? Yes Did patient provide teach back? Yes Would you like use our pharmacy [facility] to fill your new medications at the time of Discharge? No Does the patient have a welfare case worker assigned to them through their insurance? No Living Arrangement (Current/Prior to Hospitalization) Private residence (lives w/ - mobile home w/4-5 stairs to enter with railings) Does the patient have history of HHC or SNF? No Assistive Device Not applicable Patient's goal for discharge Home Was patient reminded that goal for discharge is 11am? Yes Does the patient have transportation at discharge? Yes () Type of Residence/Post Acute Needs Private residence Is PT/OT appropriate? No Is PT/OT ordered? No Is SW consult appropriate? No Is SW consult ordered? No Do you understand the benefits of MyChart? Yes Were you able to send link and activate MyChart? Yes Plan to return home with . [facility] Progress note 08-17-2023 Note Date & Type Note Facility 08-17-2023 Note Hospital Medicine Daily Progress Note - 08/17/2023 11:08 AM; Room: [address] [place] [address] Admission: 08/16/2023 10:23 PM; Length of stay: 1 days THE HOSPITALIST TEAM PREFERS TO USE [employer] FOR COMMUNICATION 7AM-7PM. IF I DO NOT RESPOND WITHIN 15 MINUTES, PLEASE PAGE ME/CALL THROUGH THE [employer]. FROM 7PM-7AM, PLEASE PAGE [phone](COVR) Code Status: Full Code Barriers to Discharge: Cath today Expected Discharge Date: 08/18/2023 Discharge Destination: home Overview Patient is seen for evaluation and management of chest pain. Subjective Patient denies active CP, SOB, N/V. Pt is still on nitro drip. Physical Exam Visit Vitals BP 120/85 Pulse 58 Temp 36.8 ???C (98.2 ???F) (Temporal) Resp 15 Intake/Output Summary (Last 24 hours) at 08/17/2023 1108 Last data filed at 08/17/2023 0827 Gross per 24 hour Intake 100 ml Output -- Net 100 ml Physical Exam Constitutional: Appearance: Normal appearance. Cardiovascular: Rate and Rhythm: Normal rate and regular rhythm. Pulmonary: Effort: Pulmonary effort is normal. Breath sounds: Normal breath sounds. Abdominal: General: Abdomen is flat. Palpations: Abdomen is soft. Neurological: General: No focal deficit present. Mental Status: She is alert and oriented to person, place, and time. Estimated body mass index is 36.15 kg/m??? as calculated from the following: Height as of this encounter: 1.676 m (5' 6 ). Weight as of this encounter: 102 kg (223 lb 15.8 oz). Active Inpatient Problems Principal Problem: Chest pain Assessment and Plan # Chest pain: # CAD s/p CABG: - Trops are negative. - Continue heparin drip. - Continue aspirin, Plavix, Lopressor and Lipitor (increase to 40 mg due to LDL 90). - Cath today. # Tobacco use, recently quit. Nutrition Screen Malnutrition Attestation: I attest to the following: I have personally seen this patient. The patient has been assessed for malnutrition as documentation above, and based on the criteria set by the Academy of Nutrition and Dietetics and the [place] [employer]al [employer] Parenteral [employer], meets the diagnosis for malnutrition. A care plan has been established for this patient. VTE Prophylaxis: IV heparin Scheduled Meds aspirin, 81 mg, oral, Daily atorvastatin, 40 mg, oral, Nightly clopidogrel, 75 mg, oral, Daily magnesium sulfate in D5W, 1 g, intravenous, q1h metoprolol tartrate, 25 mg, oral, BID pantoprazole, 40 mg, intravenous, q24h TOD heparin, 0-28 Units/kg/hr, Last Rate: 15 Units/kg/hr (08/16/232358) Pertinent Investigations Hematology: Results from last 7 days Lab Units 08/17/23 0450 08/16/23 2341 WBC AUTO 10*3/uL 11.03* 10.59 HEMOGLOBIN g/dL 13.4 13.5 HEMATOCRIT % 39.9 40.3 MCV fL 91.7 91.6 PLATELETS AUTO 10*3/uL 244 238 INR -- 1.00 Chemistry: Results from last 7 days Lab Units 08/16/23 2341 SODIUM mmol/L 136 POTASSIUM mmol/L 3.8 CHLORIDE mmol/L 109* CO2 mmol/L 18* BUN mg/dL 14 CREATININE mg/dL 0.66 GLUCOSE mg/dL 98 MAGNESIUM mg/dL 1.7* CALCIUM mg/dL 8.9 PHOSPHORUS mg/dL 3.4 Results from last 7 days Lab Units 08/16/23 2341 AST U/L 13 ALT U/L 16 ALK PHOS U/L 69 BILIRUBIN TOTAL mg/dL 0.3 Historical Values: (Includes values prior to this admission) Lab Results Component Value Date TSH 2.69 08/16/2023 HDL 34 08/16/2023 LDL 114 08/16/2023 No results found for: [id number] , IRON , TIBC , C3 , C4 , TUSHAR , CANCA , ASO , PSA , CEA , CA125 , CA199 , AFP , CA153 Imaging ECG 12 lead Normal sinus rhythm Normal ECG When compared with ECG of 01-MAR-2012 13:42, T wave inversion no longer evident in Anterior leads Discharge Planning Signed Robinson Judge MD [facility] Medicine 08/17/2023 11:08 AM [facility] Clinical Note 08-17-2023 Note Date & Type Note Facility 08-17-2023 Note . Hospital Medicine History and Physical 08/16/2023 11:10 PM THE HOSPITALIST TEAM PREFERS TO USE [employer] FOR COMMUNICATION 7AM-7PM. IF I DO NOT RESPOND WITHIN 15 MINUTES, PLEASE PAGE ME/CALL THROUGH THE [employer]. FROM 7PM-7AM, PLEASE PAGE [phone](COVR) Chief Complaint No chief complaint on file. History of Present Illness Travis Rivas is an 42 y.o. female who came from home with NSTEMI. This is a 42-year-old female with a medical history including CABG, hypertension, hyperlipidemia, spinal stenosis, polycystic ovary, chronic migraines, a history of cocaine use, a history of cigarette smoking, and degenerative disc disease with spinal stenosis. The patient was transferred from [facility] for concerns of managed stable angina and coronary artery disease. Notably, the patient has been using sublingual nitroglycerin 3-5 times a day. The cardiology team was consulted, and the plan is to perform a left heart catheterization tomorrow, with a fasting order and workup for possible non-STEMI. The troponin level from the outside facility was negative, and the EKG did not show significant ST changes but did indicate some arrhythmia and ectopy. Review of System and Physical Exam Temp: [36.8 ???C (98.2 ???F)] 36.8 ???C (98.2 ???F) Heart Rate: [65] 65 Resp: [19] 19 BP: (168)/(90) 168/90 Physical Exam Vitals and nursing note reviewed. Constitutional: Appearance: She is normal weight. HENT: Head: Normocephalic and atraumatic. Right Ear: Tympanic membrane, ear canal and external ear normal. Left Ear: Tympanic membrane, ear canal and external ear normal. Nose: Nose normal. Mouth/Throat: Mouth: Mucous membranes are moist. Pharynx: Oropharynx is clear. Eyes: Conjunctiva/sclera: Conjunctivae normal. Pupils: Pupils are equal, round, and reactive to light. Cardiovascular: Rate and Rhythm: Normal rate. Pulmonary: Effort: Pulmonary effort is normal. Abdominal: General: Abdomen is flat. Bowel sounds are normal. Musculoskeletal: General: Normal range of motion. Cervical back: Normal range of motion and neck supple. Skin: General: Skin is warm. Capillary Refill: Capillary refill takes 2 to 3 seconds. Neurological: General: No focal deficit present. Mental Status: She is alert. Mental status is at baseline. Psychiatric: Mood and Affect: Mood normal. Thought Content: Thought content normal. Judgment: Judgment normal. Review of Systems Cardiovascular: Positive for chest pain. All other systems reviewed and are negative. Problem List Patient Active Problem List Diagnosis Date Noted Chest pain 08/16/2023 Assessment and Plan #Atypical anginal chest pain #Non-STEMI #History of coronary disease -Stepdown unit admission-telemetry monitoring -Repeating troponin -Repeating EKG -TTE -Consult cardiology -N.p.o. past midnight -IV heparin drip and nitroglycerin #Hypertension #Persistent ovary #History of cocaine abuse #GI prophy: PPI #DVT prophy: Heparin Atypical anginal chest pain VTE Prophylaxis: IV heparin ----- Focus of this inpatient stay will remain on problems that need acute care setting for care. We will review available studies and will order additional labs, imaging and other studies as appropriate. As needed medicines are ordered as appropriate. VTE Prophylaxis will be ordered as appropriate. Please see above for management plan for individual hospital problems. Home medications are reviewed and will be continued as appropriate. Patient will be continued to be followed during this hospital stay by a member of [facility]. Past Medical History History reviewed. No pertinent past medical history. Past Surgical History History reviewed. No pertinent surgical history. Social History Social History Socioeconomic History Marital status: Single Spouse name: Not on file Number of children: Not on file Years of education: Not on file Highest education level: Not on file Occupational History Not on file Tobacco Use Smoking status: Former Packs/day: 1.5 Types: Cigarettes Quit date: 08/11/2023 Years since quittin.0 Smokeless tobacco: Never Substance and Sexual Activity Alcohol use: Not on file Drug use: Not on file Sexual activity: Not on file Other Topics Concern Not on file Social History Narrative Not on file Social Determinants of Health Financial Resource Strain: Low Risk (08/16/2023) Overall Financial Resource Strain (CARDIA) Difficulty of Paying Living Expenses: Not hard at all Food Insecurity: Unknown (08/16/2023) Hunger Vital Sign Worried About Running Out of Food in the Last Year: Never true Ran Out of Food in the Last Year: Not on file Transportation Needs: Unknown (08/16/2023) PRAPARE - Transportation Lack of Transportation (Medical): No Lack of Transportation (Non-Medical): Not on file Physical Activity: Not on file Stress: Not on f (more content not included)... [facility] Summary Purpose Family History No Family History Records FoundNo Family History Records FoundNo Family History Records Found Advance Directives No Advanced Directives Records FoundNo Advanced Directives Records FoundNo Advanced Directives Records Found Additional Source Comments INFORMATION SOURCE (unrecogn ized section and content) DATE CREATED AUTHOR 03/25/2018 [facility] DATE CREATED AUTHOR AUTHOR'S ORGANIZ ATION 10/17/2021 [facility] DATE CREATED AUTHOR AUTHOR'S ORGANIZ ATION 09/28/2023 [facility] FOR RECORDS PERTAINING TO PATIENTS WHO ARE OR HAVE BEEN ENROLLED IN A CHEMICAL DEPENDENCY/SUBSTANCEABUSE PROGRAM, SOME INFORMATION MAY BE OMITTED. This clinical summary was aggregated from multiple sources. Caution should be exercised in using it in the provision of clinical care. This summary normalizes information from multiple sources, and as a consequence, information in this document may materially change the coding, format and clinical context of patient data. In addition, data may be omitted in some cases. CLINICAL DECISIONS SHOULD BE BASED ON THE PRIMARY CLINICAL RECORDS. [employer] provides no warranty or guarantee of the accuracy or completeness of information in this document.
[2023-10-04 13:51] LABS: Anion Gap 15.6; BUN Creatinine Ratio 12.8; Calcium 9.6 mg/dL (8.5-10.1); Carbon Dioxide 21.6 mmol/L (21.0-32.0); Chloride 104 mmol/L (98-107); Estimated GFR (African America >60 (>=60); Estimated GFR (Non-African Ame >60 (>=60); Glucose 124 mg/dL (74-106); Potassium 4.2 mmol/L (3.5-5.1); Sodium 137 mmol/L (136-145)
[2023-10-04 14:26] LABS: Basophils Absolute Auto 0.1 10^3/uL (0.0-0.1); Basophils Percent Auto 0.6 % (0.2-2.0); Eosinophils Absolute Auto 0.3 10^3/uL (0.0-0.7); Hematocrit 42.7 % (36.0-48.0); Hemoglobin 13.4 g/dL (12.0-16.0); Immature Granulocytes Abs Auto 0.08 10^3/uL (0.00-0.03); Immature Granulocytes Pct Auto 0.6 % (0.0-0.5); Lymphocytes Absolute Auto 2.5 10^3/uL (1.2-3.8); Lymphocytes Percent Auto 18.1 % (20.5-60.0); Mean Corpuscular HGB Conc 31.4 g/dL (29.9-35.2); Mean Corpuscular Volume 95.7 fL (81.0-99.0); Mean Platelet Volume 10.3 fL (9.5-13.5); Monocytes Absolute Auto 0.8 10^3/uL (0.3-0.8); Neutrophils Absolute Auto 9.9 10^3/uL (1.4-6.5); Neutrophils Percent Auto 72.7 % (43.0-75.0); Platelet Count 297 10^3/uL (150-450); Red Blood Count 4.46 10^6/uL (4.20-5.40); Red Cell Distribution Width 14.8 % (11.0-15.0); White Blood Count 13.6 10^3/uL (4.0-11.0)
== END 2023-10-04 12:28 | disposition home or self-care (01) ==
LOC: LAB 12:30
PROVIDERS: PCP Family Medicine; Visit Provider Internal Medicine Interventional Cardiology
DX: I25.110 Atherosclerotic heart disease of native coronary artery with unstable angina pectoris (principal)
CPT/HCPCS: 36415; 80048; 85025

== ENCOUNTER 2023-11-06 11:30 | Outpatient (OUT) | payer OTHER, SELFPAY ==
--- OUTSIDE RECORDS SUMMARY | 2023-11-06 11:34 | XMS_ITS | CCD ---
Author Name Unknown Address [address] [place] [address] [address] [place] [address] Organization [facility] Care Team Providers Care Home Theater Experience Expert Name Role Phone HOY, WILIAN Unavailable Unavailable HOY, WILIAN Unavailable Unavailable SYLVIA DEGROOT Attending Unavailable HORANI, ROBINSON Referring Unavailable MERZA, NOORALDIN Referring Unavailable HORANI, ROBINSON Referring Unavailable HORANI, ROBINSON Referring Unavailable MOUKARBELSANTOS Referring Unavailable MOUKARBEL, SANTOS Admitting Unavailable MOUKARBELSANTOS Attending Unavailable MARYAM DICK Referring Unavailable HORANI, ROBINSON Attending Unavailable JANAE, JASON Admitting Unavailable MOUKARBEL, SANTOS Referring Unavailable Allergies Allergy Classification Reported Allergen(s) Allergy Type Date of Onset Reaction(s) Facility (1 source) haloperidol Drug Allergy [facility] Repository (1 source) levamisole Drug Allergy [facility] Repository (1 source) nalbuphine Drug Allergy [facility] Repository (1 source) risperiDONE Drug Allergy [facility] Repository (1 source) Haloperidol; Translations: [HALOPERIDOL] Drug Allergy 03-10-2014 [facility] Repository (1 source) Isosorbide; Translations: [ISOSORBIDE MONONITRATE] Drug Allergy 03-10-2014 [facility] Repository (1 source) Nalbuphine; Translations: [NALBUPHINE] Drug Allergy 03-10-2014 [facility] Repository (1 source) risperiDONE; Translations: [RISPERIDONE] Drug Allergy 03-10-2014 [facility] Repository Problems Problem Classification Problem Date Documented Date Episodic/Chronic Coronary atherosclerosis and other heart disease (4 sources) Atherosclerotic heart disease of [place] coronary artery without angina pectoris; Translations: [Coronary atherosclerosis due to lipid rich plaque] Onset: 09-08-2023 Chronic Nonspecific chest pain (2 sources) Chest pain, unspecified; Translations: [Chest pain, unspecified] Onset: 08-17-2023 Episodic Results Test Name Value Interpretation Reference Range Facility [facility] 10-05-2023 -- Attestation signed by Santos Rodney MD at 10/05/2023 8:31 AM I personally saw and examined the patient on the same date of service as resident/fellow Amanda Pathak. I discussed the findings and therapeutic plan with the resident/fellow Amanda Pathak. I agree with the documentation, except for any edits/updates below. Teaching Physician's Revisions: This is a 43-year-old woman with prior history of coronary disease who underwent bypass surgery with NIETO to LAD in 2011 due to severe proximal LAD stenosis. At that time her circumflex and RCA had minimal disease. most recently she presented with unstable angina in August 2023 and cardiac catheterization showed progression of her disease in the RCA and circumflex. She underwent stenting of the circumflex. She presents today for staged intervention to the RCA. She continues to have symptoms of chest pain. Risks and benefits of the procedure explained to the patient she agrees to proceed. History Of Present Illness Travis Rivas is a 43 y.o. female presenting planned staged intervention . Past Medical History She has a past medical history of Coronary artery disease and Hyperlipidemia. Surgical History She has a past surgical history that includes Coronary artery bypass graft; Coronary stent placement; Cardiac catheterization; and Laminectomy. Social History She reports that she has been smoking cigarettes. She has been smoking an average of 1.5 packs per day. She has never used smokeless tobacco. She reports that she does not drink alcohol. No history on file for drug use. Allergies Haloperidol, Nalbuphine, and Risperidone Medications Medications Prior to Admission Medication Sig Dispense Refill Last Dose aspirin 81 mg chewable tablet Chew 81 mg in the morning. 10/05/2023 clopidogrel (Plavix) 75 mg tablet Take 1 tablet (75 mg) by mouth in the morning. Do not start before 2023. 90 tablet 3 10/05/2023 diphenhydrAMINE (BENADryl) 50 mg tablet Take 100 mg by mouth if needed at bedtime for itching. 10/04/2023 isosorbide mononitrate ER (Imdur) 30 mg 24 hr tablet Take 1 tablet (30 mg) by mouth in the morning for 90 doses. Do not crush or chew. Do not start before 2023. 30 tablet 2 10/05/2023 metoprolol tartrate (Lopressor) 50 mg tablet Take 50 mg by mouth in the morning and at bedtime. 10/05/2023 rosuvastatin (Crestor) 40 mg tablet Take 1 tablet (40 mg) by mouth in the morning. 90 tablet 3 10/05/2023 nitroglycerin (Nitrostat) 0.[address] 0.4 mg under the tongue every 5 (five) minutes if needed for chest pain. Not Taking Review of Systems Constitutional: Negative. HENT: Negative. Eyes: Negative. Respiratory: Negative. Cardiovascular: Negative. Gastrointestinal: Negative. Endocrine: Negative. Genitourinary: Negative. Musculoskeletal: Negative. Hematological: Negative. Psychiatric/Behavioral : Negative. Physical Exam Constitutional: Appearance: Normal appearance. She is obese. HENT: Head: Normocephalic and atraumatic. Mouth/Throat: Mouth: Mucous membranes are moist. Eyes: Pupils: Pupils are equal, round, and reactive to light. Cardiovascular: Rate and Rhythm: Normal rate and regular rhythm. Heart sounds: No murmur heard. Pulmonary: Effort: Pulmonary effort is normal. Breath sounds: Normal breath sounds. Abdominal: General: Abdomen is flat. Musculoskeletal: General: No swelling or tenderness. Normal range of motion. Cervical back: Normal range of motion. Skin: General: Skin is warm. Capillary Refill: Capillary refill takes less than 2 seconds. Neurological: General: No focal deficit present. Mental Status: She is alert and oriented to person, place, and time. Mental status is at baseline. Last Recorded Vitals Blood pressure 115/73, pulse 83, resp. rate 17, height 1.676 m (5' 6 ), weight 97.5 kg (215 lb), last menstrual period 09/22/2023, SpO2 98 %. Assessment/Plan Principal Problem: Coronary artery disease due to lipid rich plaque Risks and benefits of the procedure was explained in details to the patient and she agreed to proceed forward with the intervention. Amanda Pathak MD Cardiovascular Medicine Fellow [facility] NURSNOTEon 10-05-2023 NURSNOTE RN educated pt on d/ c instructions. RN encouraged pt to voice any questions or concerns. Pt verbalizes no questions or concerns at this time. Pt was wheeled off of unit with all of belongings. [facility] Orders Onlyon 09-27-2023 Orders Only [id number] Travis Rivas 1980 F Date Provider Department Center 09/27/2023 [facility] Family History Problem Relation Age of Onset Coronary artery disease Mother Brain Aneurysm Mother Lung cancer Father Family Status - Relation Status Age at Mother Father [facility] Office Visiton 09-08-2023 Follow-up visit [id number] Travis Rivas 1980 F Date Provider Department Center 09/08/2023 3848-SYLVIA DEGROOT [facility] Family History Problem Relation Age of Onset Coronary artery disease Mother Brain Aneurysm Mother Lung cancer Father Family Status - Relation Status Age at Mother Father Level of Service:86383 [place] OFFICE/OUTPATIENT ESTABLISHED LOW MDM 20 MIN [facility] Orders Onlyon 09-08-2023 Orders Only [id number] Travis Rivas 1980 F Date Provider Department Center 09/08/2023 Kari5TIAN VIEYRA [facility] Family History Problem Relation Age of Onset Coronary artery disease Mother Brain Aneurysm Mother Lung cancer Father Family Status - Relation Status Age at Mother Father [facility] 30on 08-18-2023 30 Problem: Pain - Adul t Goal: Verbalizes/displays adequate comfort level or baseline comfort level Outcome: Progressing Flowsheets (Taken 08/18/2023854) Verbalizes/displays adequate comfort level or baseline comfort [...] and behaviors that affect risk of falls Joshua fall precautions as indicated by assessment Educate patient/family on patient safety, including physical limitations Instruct patient to call for assistance with activity based on assessment Modify environment to reduce risk of injury Consider OT/PT consult to assist with strengthening/mobility Problem: Discharge Planning Goal: Discharge to home or other facility with appropriate resources Outcome: Progressing Flowsheets (Taken 08/18/2023854) Discharge to home or other facility with appropriate resources: Identify barriers to discharge with patient and caregiver Arrange for needed discharge resources and transportation as appropriate Identify discharge learning needs (meds, wound care, etc) Problem: Chronic Conditions and Co-morbidities Goal: Patient's chronic conditions and co-morbidity symptoms are monitored and maintained or improved Outcome: Progressing Flowsheets (Taken 08/18/2023854) Care Plan - Patient's Chronic Conditions and [...] for the shift include VSS; safety Normal [facility] BASIC METABOLIC PANELon 12-1 Anion gap [Moles/Vol] 9 mmol/L Normal 7-20 [facility] Comment on above: Performed By: #### L [id number] ####[facility] (BEAKER)[address] [place] [address] Calcium [Mass/Vol] 9.3 mg/dL Normal 8.6-10.3 [facility] Comment on above: Performed By: #### L [id number] ####[facility] ([facility])[address] [place] [address] Chloride [Moles/Vol] 109 mmol/L High 98-107 [facility] Comment on above: Performed By: #### L [id number] ####[facility] ([facility])[address] [place] [address] CO2 [Moles/Vol] 22 mmol/L Normal 21-[address] [facility] Comment on above: Performed By: #### L [id number] ####[facility] ([facility])[address] [place] [address] Creatinine [Mass/Vol] 0.71 mg/dL Normal 0.60-1.20 [facility] Comment on above: Performed By: #### L [id number] ####[facility] ([facility])[address] [place] [address] GLOMERULAR FILTRATION RATE ML/MIN/1.73 SQ M.PREDICTED 108.8 mL/min/1.73m*2 Normal >60.0 [facility] Comment on above: Result Comment: [facility]???s estimated glomerular filtration rate (eGFR) will no [...] of individuals. Performed By: #### L [id number] ####[facility] ([facility])[address] [place] [address] Glucose [Mass/Vol] 100 mg/dL Normal 70-100 [facility] Comment on above: Performed By: #### L [id number] ####[facility] ([facility])[address] [place] [address] Potassium [Moles/Vol] 4.3 mmol/L Normal 3.5-5.1 [facility] Comment on above: Performed By: #### L [id number] ####[facility] ([facility])[address] [place] [address] Sodium [Moles/Vol] 136 mmol/L Normal 136-145 [facility] Comment on above: Performed By: #### L [id number] ####[facility] ([facility])[address] [place] [address] Urea nitrogen [Mass/Vol] 15 mg/dL Normal 7-25 [facility] Comment on above: Performed By: #### L [id number] ####[facility] ([facility])[address] [place] [address] UREA NITROGEN/CREATININE (MASS RATIO) IN SER/PLAS 21.1 Normal [facility] Comment on above: Performed By: #### L [id number] ####[facility] ([facility])[address] [place] [address] MAGNESIUMon 08-18-2023 Magnesium [Mass/Vol] 2.0 mg/dL Normal 1.9-2.7 [facility] Comment on above: Performed By: #### L [id number] #### [facility] ([facility]) [address] [place] [address] 30on 08-17-2023 30 The patient is Moderately [...] with appropriate resources Outcome: Progressing Flowsheets (Taken 08/17/2023 0730) Discharge to home or other facility with appropriate resources: Identify barriers to discharge with patient and caregiver Arrange for needed discharge resources and transportation as appropriate Identify discharge learning needs (meds, wound care, etc) Problem: Chronic Conditions and Co-morbidities Goal: Patient's chronic conditions and co-morbidity symptoms are monitored and maintained or improved Outcome: Progressing Flowsheets (Taken 08/17/2023 0730) Care Plan - Patient's Chronic Conditions and [...] renal function maintained Outcome: Progressing Flowsheets (Taken 08/17/2023729) Hemodynamic stability and optimal renal function maintained: Monitor labs and assess for signs and symptoms of volume excess or deficit Monitor intake, output and patient weight Monitor urine specific gravity, serum osmolarity and serum sodium as indicated or ordered Goal: Glucose maintained within prescribed range Outcome: Progressing Problem: Resident experiences pain/discomfort Goal: I will maintain an acceptable level of pain Outcome: Progressing Normal [facility] 30 Daily Case Managemen t Update Multidisciplinary rounds have been completed. Barriers to Discharge: Pending clinical course and improvement in clinical condition. Patient to undergo Left Heart Catheterization per Cardiology. Patient on IV heparin and Nitroglycerin. NPO after midnight. Diet: Dietary Orders (From admission, onward) Start Ordered 08/16/23 2305 Diet NPO Diet effective now Comments: Sips [...] NSTEMI Level of Consultation Consultation and Management 08/16/232307 Normal [facility] 30 The patient is Moderately Stable - Low risk of patient condition declining or worsening The patient's goals for the shift include The clinical goals for the shift include stable vs Over the shift, the patient continued to make progress toward the following goals. Normal [facility] ANTI-XA (HEPARIN LEVEL)on HEPARIN UNFRACTIONATED (U/ML) IN PPP BY CHROMOGENIC METHOD 0.24 IU/mL Low 0.3-0.7 [facility] Comment on above: Order Comment: Check anti-Xa level every 6 hours while on heparin infusion, or per protocol. Result Comment: [place] roxaban and Apixaban will interfere with the anti Xa assay used to monitor UFH and LMWH. Performed By: #### L [id number] #### [facility] ([facility]) [address] [place] [address] HEPARIN UNFRACTIONATED (U/ML) IN PPP BY CHROMOGENIC METHOD 0.36 IU/mL Normal 0.3-0.7 [facility] Comment on above: Order Comment: Check anti-Xa level every 6 hours while on heparin infusion, or per protocol. Result Comment: [place] roxaban and Apixaban will interfere with the anti Xa assay used to monitor UFH and LMWH. Performed By: #### L [id number] #### [facility] ([facility]) [address] [place] [address] HEPARIN UNFRACTIONATED (U/ML) IN PPP BY CHROMOGENIC METHOD <0.10 Invalid Interpretation Code 0.3-0.7 [facility] Comment on above: Order Comment: Check anti-Xa level every 6 hours while on heparin infusion, or per protocol. Result Comment: [place] roxaban and Apixaban will interfere with the anti Xa assay used to monitor UFH and LMWH. Performed By: #### L [id number] #### [facility] ([facility]) [address] [place] [address] APTTon 08-17-2023 ACTIVATED PARTIAL THROMBOPLASTIN TIME IN PPP BY COAGULATION ASSAY 28.5 Seconds Normal 25.0-35.0 [facility] Comment on above: Result Comment: Clin ical significance of the APTT is questionable in the presence of heparin. Performed By: #### L [id number] #### [facility] ([facility]) [address] [place] [address] B-TYPE NATRIURETIC PEPTIDEon 08-17-2023 Natriuretic peptide B (Bld) [Mass/Vol] 47 pg/mL Normal 0-100 [facility] Comment on above: Performed By: #### L [id number] #### [facility] ([facility]) [address] [place] [address] BLOOD CULTUREon 08-17-2023 Bacteria identified Cx Nom (Bld) No growth at 5 days Normal [facility] Comment on above: Order Comment: From a different site than #1. Performed By: #### L [id number] ####[facility] ([facility])[address] [place] [address] CBCon 08-17-2023 Erythrocyte distribution width (RBC) [Ratio] 14.6 % Normal 11.5-15.0 [facility] Comment on above: Performed By: #### L [id number] #### [facility] ([facility]) [address] [place] [address] ERYTHROCYTE MEAN CORPUSCULAR HEMOGLOBIN CONCENTRATION (G/DL) BY AUTOMATED 33.6 g/dL Normal 32.0-35.0 [facility] Comment on above: Performed By: #### L [id number] #### [facility] ([facility]) [address] [place] [address] Hematocrit (Bld) [Volume fraction] 39.9 % Normal 36.0-48.0 [facility] Comment on above: Performed By: #### L [id number] #### [facility] ([facility]) [address] [place] [address] Hemoglobin (Bld) [Mass/Vol] 13.4 g/dL Normal 12.0-15.0 [facility] Comment on above: Performed By: #### L [id number] #### [facility] ([facility]) [address] [place] [address] MCH (RBC) [Entitic mass] 30.8 pg Normal 27.0-33.0 [facility] Comment on above: Performed By: #### L [id number] #### [facility] ([facility]) [address] [place] [address] MCV (RBC) [Entitic vol] 91.7 fL Normal 82.0-98.0 [facility] Comment on above: Performed By: #### L [id number] #### [facility] ([facility]) [address] [place] [address] PLATELETS (10*3/UL) IN BLOOD AUTOMATED COUNT 244 10*3/uL Normal 150-400 [facility] Comment on above: Performed By: #### L [id number] #### [facility] ([facility]) [address] [place] [address] RBC (Bld) [#/Vol] 4.35 10*6/uL Normal 3.80-5.00 [facility] Comment on above: Performed By: #### L [id number] #### [facility] ([facility]) [address] [place] [address] WBC (Bld) [#/Vol] 11.03 10*3/uL High 4.00-10.60 [facility] Comment on above: Performed By: #### L [id number] #### [facility] ([facility]) [address] [place] [address] CBC WITH AUTO DIFFERENTIALon 08-17-2023 Basophils (Bld) [#/Vol] 0.06 10*3/uL Normal 0.00-0.20 [facility] Comment on above: Performed By: #### L [id number] #### [facility] ([facility]) [address] [place] [address] Basophils/100 WBC (Bld) 0.6 % Normal 0.0-1.0 [facility] Comment on above: Performed By: #### L [id number] #### [facility] ([facility]) [address] [place] [address] Eosinophils (Bld) [#/Vol] 0.14 10*3/uL Normal 0.00-0.50 [facility] Comment on above: Performed By: #### L [id number] #### [facility] ([facility]) [address] [place] [address] Eosinophils/100 WBC (Bld) 1.3 % Normal 0.0-6.0 [facility] Comment on above: Performed By: #### L [id number] #### [facility] ([facility]) [address] [place] [address] Erythrocyte distribution width (RBC) [Ratio] 14.6 % Normal 11.5-15.0 [facility] Comment on above: Performed By: #### L [id number] #### [facility] ([facility]) [address] [place] [address] ERYTHROCYTE [place]AN CORPUSCULAR HEMOGLOBIN CONCENTRATION (G/DL) BY AUTOMATED 33.5 g/dL Normal 32.0-35.0 [facility] Comment on above: Performed By: #### L [id number] #### [facility] ([facility]) [address] [place] [address] Hematocrit (Bld) [Volume fraction] 40.3 % Normal 36.0-48.0 [facility] Comment on above: Performed By: #### L [id number] #### [facility] ([facility]) [address] [place] [address] Hemoglobin (Bld) [Mass/Vol] 13.5 g/dL Normal 12.0-15.0 [facility] Comment on above: Performed By: #### L [id number] #### [facility] ([facility]) [address] [place] [address] Immature granulocytes (Bld) [#/Vol] 0.03 10*3/uL Normal 0.00-0.20 [facility] Comment on above: Performed By: #### L [id number] #### [facility] ([facility]) [address] [place] [address] Immature granulocytes/100 WBC (Bld) 0.3 % Normal 0.0-1.0 [facility] Comment on above: Performed By: #### L [id number] #### [facility] ([facility]) [address] [place] [address] Lymphocytes (Bld) [#/Vol] 2.18 10*3/uL Normal 1.20-4.00 [facility] Comment on above: Performed By: #### L [id number] #### [facility] ([facility]) [address] [place] [address] Lymphocytes/100 WBC (Bld) 20.6 % Normal 20.0-45.0 [facility] Comment on above: Performed By: #### L [id number] #### [facility] ([facility]) [address] [place] [address] MCH (RBC) [Entitic mass] 30.7 pg Normal 27.0-33.0 [facility] Comment on above: Performed By: #### L [id number] #### [facility] ([facility]) [address] [place] [address] MCV (RBC) [Entitic vol] 91.6 fL Normal 82.0-98.0 [facility] Comment on above: Performed By: #### L [id number] #### [facility] ([facility]) [address] [place] [address] Monocytes (Bld) [#/Vol] 0.69 10*3/uL Normal 0.10-1.00 [facility] Comment on above: Performed By: #### L [id number] #### [facility] ([facility]) [address] [place] [address] Monocytes/100 WBC (Bld) 6.5 % Normal 5.0-12.0 [facility] Comment on above: Performed By: #### L [id number] #### [facility] ([facility]) [address] [address] Neutrophils (Bld) [#/Vol] 7.49 10*3/uL Normal 1.60-7.60 [facility] Comment on above: Performed By: #### L [id number] #### [facility] ([facility]) [address] [place] [address] Neutrophils/100 WBC (Bld) 70.7 % Normal 40.0-72.0 [facility] Comment on above: Performed By: #### L [id number] #### [facility] ([facility]) [address] [place] [address] NRBC (PER 100 WBCS) BY AUTOMATED COUNT 0.0 % Normal 0 [facility] Comment on above: Performed By: #### L [id number] #### [facility] ([facility]) [address] [place] [address] PLATELETS (10*3/UL) IN BLOOD AUTOMATED COUNT 238 10*3/uL Normal 150-400 [facility] Comment on above: Performed By: #### L [id number] #### [facility] ([facility]) [address] [address] RBC (Bld) [#/Vol] 4.40 10*6/uL Normal 3.80-5.00 [facility] Comment on above: Performed By: #### L [id number] #### [facility] ([facility]) [address] [place] [address] WBC (Bld) [#/Vol] 10.59 10*3/uL Normal 4.00-10.60 [facility] Comment on above: Performed By: #### L [id number] #### [facility] ([facility]) [address] [place] [address] COMPREHENSIVE METABOLIC PANE August 08-17-2023 Albumin [Mass/Vol] 4.1 g/dL Normal 3.5-5.7 [facility] Comment on above: Performed By: #### L [id number] #### [facility] ([facility]) [address] [place] [address] ALP [Catalytic activity/Vol] 69 U/L Normal 34-104 [facility] Comment on above: Performed By: #### L [id number] #### [facility] ([facility]) [address] [place] [address] ALT [Catalytic activity/Vol] 16 U/L Normal 7-52 [facility] Comment on above: Performed By: #### L [id number] #### [facility] ([facility]) [address] [place] [address] Anion gap [Moles/Vol] 13 mmol/L Normal 7-20 [facility] Comment on above: Performed By: #### L [id number] #### [facility] ([facility]) [address] [place] [address] AST [Catalytic activity/Vol] 13 U/L Normal 13-39 [facility] Comment on above: Performed By: #### L [id number] #### [facility] ([facility]) [address] [address] Bilirubin [Mass/Vol] 0.3 mg/dL Normal 0.3-1.0 [facility] Comment on above: Performed By: #### L [id number] #### [facility] ([facility]) [address] [address] Calcium [Mass/Vol] 8.9 mg/dL Normal 8.6-10.3 [facility] Comment on above: Performed By: #### L [id number] #### [facility] ([facility]) [address] [address] Chloride [Moles/Vol] 109 mmol/L High 98-107 [facility] Comment on above: Performed By: #### L [id number] #### [facility] ([facility]) [address] [address] CO2 [Moles/Vol] 18 mmol/L Low 21-[address] [facility] Comment on above: Performed By: #### L [id number] #### [facility] ([facility]) [address] [place] [address] Creatinine [Mass/Vol] 0.66 mg/dL Normal 0.60-1.20 [facility] Comment on above: Performed By: #### L [id number] #### [facility] ([facility]) [address] [address] GLOMERULAR FILTRATION RATE ML/MIN/1.73 SQ M.PREDICTED 112.2 mL/min/1.73m*2 Normal >60.0 [facility] Comment on above: Result Comment: The [facility]???s estimated glomerular filtration rate (eGFR) will no [...] group of individuals. Performed By: #### L [id number] #### [facility] ([facility]) [address] [address] Glucose [Mass/Vol] 98 mg/dL Normal 70-100 [facility] Comment on above: Performed By: #### L [id number] #### [facility] ([facility]) [address] [place] [address] Potassium [Moles/Vol] 3.8 mmol/L Normal 3.5-5.1 [facility] Comment on above: Performed By: #### L [id number] #### [facility] ([facility]) [address] [address] Protein [Mass/Vol] 6.7 g/dL Normal 6.0-8.3 [facility] Comment on above: Performed By: #### L [id number] #### [facility] ([facility]) [address] [address] Sodium [Moles/Vol] 136 mmol/L Normal 136-145 [facility] Comment on above: Performed By: #### L [id number] #### [facility] ([facility]) [address] [address] Urea nitrogen [Mass/Vol] 14 mg/dL Normal 7-25 [facility] Comment on above: Performed By: #### L [id number] #### [facility] ([facility]) [address] [address] UREA NITROGEN/CREATININE (MASS RATIO) IN SER/PLAS 21.2 Normal [facility] Comment on above: Performed By: #### L [id number] #### [facility] ([facility]) [address] [address] CONSULTon 08-17-2023 CONSULT Inpatient consult to Cardiothoracic Surgery Consult performed by: Semaj Bull NP Consult ordered by: Santos Rodney MD Reason for consult: Redo CABG, Multivessel CAD History Of Present Illness Travis Rivas is a 42 y.o. female with a past medical history including CABG x 1 (NIETO-LAD), hypertension, hyperlipidemia, spinal stenosis, polycystic ovary, chronic migraines, hx of cocaine use, hx of cigarette smoking, and degenerative disc disease with spinal stenosis. She was transferred from [facility] for concerns of managed stable angina [...] CABG. CT Surgery was consulted in the laboratory apparatus glass blower and case was personally discussed with Dr. [...] Bubble Study Result Date: 08/17/2023 1 1 [facility] Heart Station [address] [place] [address] [phone] (fax) Echocardiogram-[facility] Name: TRAVIS RIVAS Study Date: 08/17/2023 12:45 PM B/P: 128 mmHg/90 mmHg HR: 64 bpm Date of : 1980 Location: [facility] Height: 66 in. Age: 42 year(s) Patient [...] motion abnorma (more content not included)... Normal [facility] CONSULT -- Attestation signed by David Bee [...] the emergency room as a transfer from [facility] with concern for stable angina in [...] ordered upon transfer. Patient saw cardiology at [facility] on 03/2014 but this was last available [...] flat. Palp (more content not included)... Normal [facility] HEMOGLOBIN A1Con 08-17-2023 Glucose [Mass/Vol] 117 mg/dL Normal [facility] Comment on above: Performed By: #### L [id number] ####[facility] (BEAKER)[address] [place] [address] HbA1c (Bld) [Mass fraction] 5.7 % Normal 4.0-6.0 [facility] Comment on above: Performed By: #### L [id number] ####[facility] (BEAKER)[address] [place] [address] HPon 08-17-2023 HP H&P reviewed. The patient was examined and there are no changes to the H&P. 42 y.o. female who presented the emergency room as a transfer from [facility] with concern for stable angina in [...] for patency of previously placed graft. Normal [facility] LACTIC ACID WITH 4 HOUR REFL EXon 08-17-2023 LACTATE (MMOL/L) IN SER/PLAS 1.2 mmol/L Normal 0.5-2.2 [facility] Comment on above: Performed By: #### L [id number] #### [facility] ([facility]) [address] [place] [address] LIPID PANELon 08-17-2023 CHOL/HDL 4.4 mg/dL Normal [facility] Comment on above: Performed By: #### L [id number] #### [facility] ([facility]) [address] [place] [address] Cholesterol [Mass/Vol] 148 mg/dL Normal 120-200 [facility] Comment on above: Performed By: #### L [id number] #### [facility] ([facility]) [address] [place] [address] Magnesium [Mass/Vol] 119 mg/dL Normal 40-149 [facility] Comment on above: Result Comment: TRIG LYCERIDE REFERENCE RANGE: 20 YEARS AND OLDER CARDIOVASCULAR RISK LESS THAN 150 mg/dL LOW RISK 150 TO 199 mg/dL BORDERLINE RISK 200 mg/dL AND GREATER HIGH RISK Performed By: #### L [id number] #### [facility] ([facility]) [address] [place] [address] Magnesium [Mass/Vol] 90 mg/dL Normal 0-160 [facility] Comment on above: Performed By: #### L [id number] #### [facility] ([facility]) [address] [place] [address] Magnesium [Mass/Vol] 34 mg/dL Normal 23-92 [facility] Comment on above: Performed By: #### L [id number] #### [facility] ([facility]) [address] [place] [address] NON HDL CHOL. (LDL+VLDL) 114 Normal [facility] Comment on above: Performed By: #### L [id number] #### [facility] ([facility]) [address] [address] TOTAL VLDL-C 24 mg/dL Normal 0-40 [facility] Comment on above: Performed By: #### L [id number] #### [facility] ([facility]) [address] [address] MAGNESIUMon 08-17-2023 Magnesium [Mass/Vol] 1.7 mg/dL Low 1.9-2.7 [facility] Comment on above: Performed By: #### L [id number] ####[facility] ([facility])[address] [place] [address] PHOSPHORUSon 08-17-2023 Magnesium [Mass/Vol] 3.4 mg/dL Normal 2.5-5.0 [facility] Comment on above: Performed By: #### L [id number] #### [facility] ([facility]) [address] [place] [address] PROTIME-INRon 08-17-2023 INR IN PPP BY COAGULATION ASSAY 1.00 Normal 0.90-1.10 [facility] Comment on above: Result Comment: ACCC P RECOMMENDED INR FOR WARFARIN THERAPY CONDITION [...] CHEST 1995;108:231S-246S. Performed By: #### L [id number] ####[facility] ([facility])[address] [facility] [place] [address] PROTHROMBIN TIME (PT) IN PPP BY COAGULATION ASSAY 13.2 Seconds Normal 12.3-14.8 [facility] Comment on above: Performed By: #### L [id number] ####[facility] ([facility])[address] [facility] [facility] [place] [address] TOXICOLOGY PANEL URINEon AMPHETAMINE+METHAMP HETAMINE SCREEN (PRESENCE) IN URINE Negative Normal Negative [facility] Comment on above: Performed By: #### L [id number] #### [facility] ([facility]) [address] [facility] [place] [address] BARBITURATES PRESENCE IN URINE BY SCREEN METHOD Negative Normal Negative [facility] Comment on above: Performed By: #### L [id number] #### [facility] ([facility]) [address] [facility] [place] [place] [address] Benzodiazepines Ql (U) Negative Normal Negative [facility] Comment on above: Performed By: #### L [id number] #### [facility] ([facility]) [address] [place] [address] CANNABINOID (PRESENCE) IN URINE BY SCREEN METHOD Positive Abnormal Negative [facility] Comment on above: Performed By: #### L [id number] #### [facility] ([facility]) [address] [facility] [place] [address] Cocaine Ql (U) Negative Normal Negative [facility] Comment on above: Performed By: #### L [id number] #### [facility] ([facility]) [address] [facility] [place] [address] METHADONE (PRESENCE) IN URINE BY SCREEN METHOD Negative Normal Negative [facility] Comment on above: Performed By: #### L [id number] #### [facility] ([facility]) [address] [place] [address] OPIATES (PRESENCE) IN URINE BY SCREEN METHOD Negative Normal Negative [facility] Comment on above: Performed By: #### L [id number] #### [facility] ([facility]) [address] [facility] [place] [place] [address] PHENCYCLIDINE PRESENCE IN URINE BY SCREEN METHOD Negative Normal Negative [facility] Comment on above: Performed By: #### L [id number] #### [facility] ([facility]) [address] [address] Propoxyphene Screen Ql (U) Negative Normal Negative [facility] Comment on above: Performed By: #### L [id number] #### [facility] ([facility]) [address] [facility] [place] [place] [address] TRICYCLIC ANTIDEPRESSANTS (PRESENCE) IN URINE Negative Normal Negative [facility] Comment on above: Performed By: #### L [id number] #### [facility] ([facility]) [address] [facility] [place] [address] TROPONIN Ion 08-17-2023 Troponin I.cardiac [Mass/Vol] 0.00 ng/mL Normal 0.00-0.04 [facility] Comment on above: Performed By: #### L [id number] ####[facility] ([facility])[address] [place] [facility] [place] [address] Troponin I.cardiac [Mass/Vol] 0.01 ng/mL Normal 0.00-0.04 [facility] Comment on above: Performed By: #### L [id number] #### [facility] ([facility]) [address] [place] [address] Troponin I.cardiac [Mass/Vol] 0.04 ng/mL Normal 0.00-0.04 [facility] Comment on above: Performed By: #### L [id number] #### [facility] ([facility]) [address] [place] [address] TSH3 REFLEX TO FT4on 023 THYROTROPIN (MIU/L) IN SER/PLAS BY DETECTION LIMIT <= 0.05 MIU/L 2.69 mIU/L Normal 0.34-5.60 [facility] Comment on above: Performed By: #### L [id number] #### [facility] ([facility]) [address] [address] URINALYSIS WITH REFLEX CULTU REon 08-17-2023 BILIRUBIN, TOTAL PRESENCE IN URINE Negative Normal Negative [facility] Comment on above: Order Comment: Micro scopics not performed on urines with negative chemical reactions unless requested on original order. Performed By: #### L [id number] ####[facility] ([facility])[address] [address] Clarity (U) Clear Normal Clear [facility] Comment on above: Order Comment: Micro scopics not performed on urines with negative chemical reactions unless requested on original order. Performed By: #### L [id number] ####[facility] ([facility])[address] [place] [address] Color (U) Yellow Normal Yellow [facility] Comment on above: Order Comment: Micro scopics not performed on urines with negative chemical reactions unless requested on original order. Performed By: #### L [id number] ####[facility] ([facility])[address] [place] [address] Glucose (U) [Mass/Vol] Negative Normal Negative [facility] Comment on above: Order Comment: Micro scopics not performed on urines with negative chemical reactions unless requested on original order. Performed By: #### L [id number] ####[facility] ([facility])[address] [place] [address] HEMOGLOBIN PRESENCE IN URINE Negative Normal Negative [facility] Comment on above: Order Comment: Micro scopics not performed on urines with negative chemical reactions unless requested on original order. Performed By: #### L [id number] ####[facility] ([facility])[address] [address] Ketones Ql (U) Negative Normal Negative [facility] Comment on above: Order Comment: Micro scopics not performed on urines with negative chemical reactions unless requested on original order. Performed By: #### L [id number] ####[facility] ([facility])[address] [place] [address] LEUKOCYTE ESTERASE PRESENCE IN URINE BY TEST STRIP Negative Normal Negative [facility] Comment on above: Order Comment: Micro scopics not performed on urines with negative chemical reactions unless requested on original order. Performed By: #### L [id number] ####[facility] ([facility])[address] [place] [address] NITRITE PRESENCE IN URINE Negative Normal Negative [facility] Comment on above: Order Comment: Micro scopics not performed on urines with negative chemical reactions unless requested on original order. Performed By: #### L [id number] ####[facility] ([facility])[address] [facility] [place] [address] pH (U) 5.0 [pH] Normal 5.0-8.0 [facility] Comment on above: Order Comment: Micro scopics not performed on urines with negative chemical reactions unless requested on original order. Performed By: #### L [id number] ####[facility] ([facility])[address] [facility] [place] [address] Protein (U) [Mass/Vol] Negative Normal Negative [facility] Comment on above: Order Comment: Micro scopics not performed on urines with negative chemical reactions unless requested on original order. Performed By: #### L [id number] ####[facility] ([facility])[address] [facility] [place] [address] Specific gravity (U) [Rel density] 1.024 High 1.015-1.020 [facility] Comment on above: Order Comment: Micro scopics not performed on urines with negative chemical reactions unless requested on original order. Performed By: #### L [id number] ####[facility] ([facility])[address] [facility] [place] [address] COVID-19 Lab Corpon 09-06-19 SARS-CoV-2 (COVID-19) RNA PETAR+probe Ql (Unsp spec) Not detected Normal Not Detected [facility] Comment on above: Order Comment: Healt hcare Worker?: N Result Comment: This nucleic acid amplification test was developed and its performance characteristics determined by [employer]. Nucleic acid amplification tests include RT- PCR [...] detected) result in this assay. Performed at: [facility] Lab[address] [id number] Wound/Ostomy Nurse: James Calles PhD, Phone: [phone] PERFORMED BY: [place] [id number] PATHOLOGIST PEDICAB DRIVER DENNISE BEATTY M.D. Performed By: #### C [...] its performance Donna Disclaimer characteristic determined by [employer] and Donna Disclaimer validated at [facility]. This Donna Disclaimer test has not been [...] Emergency Use Authorization for Coronavirus Donna Disclaimer iseas-2018 during the Public Health Emergency) Donna Disclaimer [...] is terminated or revoked sooner. PERFORMED BY: [place] [id number] PATHOLOGIST PEDICAB DRIVER DENNISE BEATTY M.D. [facility] Comment on above: Performed By: #### S ALEENA COVID-19 DONNA #### [place] [id number] [facility] ECG 12 lead ECGon 07-11-2021 ECG 12 lead ECG [facility] [place] [address] [place] [address] Electrocardiograph Report Signed Patient: Travis Rivas MR#: [id number] : 1980 Acct:[id number] Age/Sex: 40 / F ADM Date: 07/11/21 Loc: ER Room: Type: [facility] ER Attending Dr: Ordering Provider: AZIZA [...] By Maryam Ashley DO 07/13 1245 Normal [facility] Donna Ag Negativeon 07-11-20 Donna Ag Negative Negative Normal Negative [facility] Comment on above: Result Comment: This is a duplicate Donna SARS Antigen (KIERRA) result to be used for statistical tracking purpose only. PERFORMED BY: [address] [place] [address] PATHOLOGIST PEDICAB DRIVER DENNISE BEATTY M.D. Performed By: #### S OFPEACE COVID-19 DONNA #### [facility] [address] [place] [id number] [facility] XR chest 1V portableon 07-11 XR chest 1V portable [facility] [place] [address] [place] [id number] XRay Report Signed Patient: Travis Rivas MR#: [id number] : 1980 Acct:[id number] Age/Sex: 40 / F ADM Date: 07/11/21 Loc: ER Room: Type: [facility] ER Attending Dr: Ordering Provider: AZIZA Zavala Date of Service: 07/11/21 XR/XR chest [...] Serrano Jr., M.D.07/11/2021 3:02 PM Dictation Location: [place] [address] Transcribed By: [facility] 07/11/21 1502 Dictated By: Ralf Serrano Jr, MD 07/11/21 1456 Signed By: 07/11/21 1502 [facility] Encounters Encounter Date Encounter Type Care Provider Facility Start: 10-05-2023 ambulatory [facility] Start: 10-05-2023 End: 10-05-2023 ambulatory [facility] Start: 09-08-2023 End: 09-08-2023 ambulatory [facility] Start: 08-17-2023 Evaluation and management of inpatient [facility] Start: 08-17-2023 Evaluation and management of inpatient ROBINSON HORANI [facility] Start: 08-17-2023 Evaluation and management of inpatient ROBINSON JUDGE [facility] Start: 08-17-2023 End: 08-18-2023 Evaluation and management of inpatient MARYAM DICK [facility] Start: 03-24-2018 Patient encounter WILIAN Gill ity:H1 Payers Date Payer Category Payer Unknown [id number] 1959 Self-pay [id number] Clinical Notes 08-17-2023 to 10-05-2023 Note Date & Type Note Facility 10-05-2023 Note Patient: Travis mac Procedure Information Date/Time: 10/05/23829 Procedure: Percutaneous coronary intervention (Left) Location: [facility] SENIOR ENGINEERING SPECIALIST 3 / [facility] VASCULAR [facility] (Cath) Providers: Santos Rodney MD Clinical information reviewed: Tobacco Allergies Problems OB Status Physical Exam Airway Mallampati: III Neck ROM: full Cardiovascular Rhythm: regular Rate: normal Dental Pulmonary - normal exam Abdominal - normal exam Abdomen: soft Anesthesia Plan ASA 3 other (Conscious sedation) Anesthetic plan and risks discussed with patient. Use of blood products discussed with patient who consented to blood products. Plan discussed with fellow. Additional Equipment Requests [facility] 09-08-2023 Note nisa [facility] 09-08-2023 Note Cardiology Follow Up Progress Note Chief Complaint: Posthospitalization follow up HPI: Travis Rivas is a 43 y.o. female Who presents to cardiology clinic for posthospitalization follow-up follow-up. Patient has a history of CAD with NIETO to LAD bypass. She was recently seen in the hospital for UA and was found to have severe stenosis of left circumflex coronary artery. This was treated with balloon angioplasty and drug-eluting stent placement. She is planned for staged PCI of RCA and diagonal branch. Today, patient states that she feels significantly better than before. She continues to have anginal chest pain. This is associated with shortness of breath. She denies any lower extremity [place], orthopnea, paroxysmal nocturnal dyspnea. She is taking her medications as prescribed, including DAPT. No bleeding complications. Cardiology ROS: GENERAL: Denies fever, chills, night sweats, weight loss. HEENT: Denies changes in vision, photophobia, changes in hearing, epistaxis, oral bleeding. CARDIOVASCULAR: As per HPI RESPIRATORY: Denies SOB, coughing, wheezing GI: Denies abdominal pain, nausea/vomiting, heartburn, melena/hematochezia. RENAL: Denies dysuria, hematuria, flank pain. MSK: Denies muscle weakness/pain, arthralgias/joint pain. NEUROLOGIC: Denies LOC, weakness, numbness, headaches. SKIN: Denies abnormal rashes or bleeding. PSYCH: Denies significant anxiety, depression, sleep disturbances. Medications Current Outpatient Medications on File Prior to Visit Medication Sig Dispense Refill aspirin 81 mg chewable tablet Chew 81 mg in the morning. clopidogrel (Plavix) 75 mg tablet Take 1 tablet (75 mg) by mouth in the morning. Do not start before 2023. 90 tablet 3 diphenhydrAMINE (BENADryl) 50 mg tablet Take 100 mg by mouth if needed at bedtime for itching. isosorbide mononitrate ER (Imdur) 30 mg 24 hr tablet Take 1 tablet (30 mg) by mouth in the morning for 90 doses. Do not crush or chew. Do not start before 2023. 30 tablet 2 metoprolol tartrate (Lopressor) 50 mg tablet Take 50 mg by mouth in the morning and at bedtime. nitroglycerin (Nitrostat) 0.[address] 0.4 mg under the tongue every 5 (five) minutes if needed for chest pain. [DISCONTINUED] atorvastatin (Lipitor) 40 mg tablet Take 1 tablet (40 mg) by mouth at bedtime for 90 doses. 30 tablet 2 No current facility-administered medications on file prior to visit. Allergies Haloperidol, Nalbuphine, and Risperidone Physical Exam VITAL SIGNS: BP 134/88 (BP Location: Right arm, Patient Position: Sitting) Pulse 74 Ht 1.676 m (5' 6 ) Wt 97.5 kg (215 lb) SpO2 99% BMI 34.70 kg/m??? Constitutional: Well developed, Well nourished, No acute distress, Non-toxic appearance. HENT: Normocephalic, Atraumatic, Bilateral external ears have normal appearance, Nose appears normal, nares are patent. Eyes: PERRLA, EOMI, Conjunctiva normal, No discharge. Neck: Normal range of motion, No tenderness, Supple, No stridor. No cervical lymphadenopathy noted. Cardiovascular: Normal heart rate, Normal rhythm, No murmurs, No rubs, No gallops. Thorax & Lungs: Normal breath sounds, No respiratory distress, No wheezing, No chest tenderness to palpation. Abdomen: Bowel sounds normal, Soft, Nontender, No masses, No pulsatile masses. Skin: Warm, Dry, No erythema, No rash. Back: No tenderness, No CVA tenderness. Extremities: Intact distal pulses, No edema, No tenderness, No cyanosis, No clubbing. Musculoskeletal: Grossly normal strength in extremities Neurologic: Alert & oriented x 3, no gross focal neurological deficits Psychiatric: Affect normal, Judgment normal, Mood normal. EKG results: Encounter Date: 10/05/23 ECG 12 lead Result Value Ventricular Rate 67 Atrial Rate 67 WY Interval 168 QRS DURATION 86 QT Interval 408 QTC CALCULATION(BAZETT) 431 P [place] 49 R-[place] 77 T Wave [place] 67 Impression Normal sinus rhythm T wave abnormality, consider anterior ischemia Abnormal ECG When compared with ECG of 05-OCT-2023 07:15, No significant change was found Confirmed by Darrin MONTANO, L.S. (2) on 10/05/2023 11:09:31 AM Echo results: Complete Echo (TTE) w/wo Imaging Agent, Strain, 3D, Bubble Study Result Date: 08/17/2023 1 1 [facility] Heart Station [address] [place] [address] [phone] (fax) Echocardiogram-[facility] Name: TRAVIS RIVAS Study Date: 08/17/2023 12:45 PM B/P: 128 mmHg/90 mmHg HR: 64 bpm Date of : 1980 Location: [facility] Height: 66 in. Age: 42 year(s) Patient Room: 3122 Weight: 223 lb. Gender: Female Patient Status: InPt BSA: 2.09 m2 Indication: Chest Pain, CAD, H/O CABG, Smoker Examination: Echocardiogram (Complete), Lumason Contrast Patient Consent: Procedure explained to patient Exam Details Contrast: I.V. dose of Lumason Conclusions Left Ventricle: The left ventric (more content not included)... [facility] 09-08-2023 Note Patient here for [facility] and PCI. Still has some pressure in her chest. She's feeling much better though. Plan is for staged intervention. Review of Systems Cardiovascular: Positive for chest pain ( pressure ) and palpitations ( 1 or 2 once in awhile ). Respiratory: Positive for cough (improving). All other systems reviewed and are negative. [facility] 08-18-2023 Note Discharge education completed with patient at bedside; verbalized understanding. Copy of signed AVS placed in paper chart. Prescriptions sent electronically to requested pharmacy. Physician Liaison RN escorted patient to main entrance lobby. [facility] 08-18-2023 Note [facility] CARDIOLOGY INPAT IENT PROGRESS [...] -- -- 79 17 100 % -- 08/17/231999 108/73 36.8 ???C (98.2 ???F) Temporal 60 [...] Value Ventricular Rate 56 Atrial Rate 56 WY Interval 152 QRS DURATION 88 QT Interval 452 QTC CALCULATION(BAZETT) 436 P [place] 35 R-[place] 85 T Wave [place] 79 Impression Sinus bradycardia Nonspecific ST abnormality Abnormal ECG When compared with ECG of 17-AUG-2023 09:14, No significant change was found Confirmed by Ector Paniagua ([id number]) on 08/18/2023 8:48:38 AM 08/17/[address] [facility] with NIETO to LAD patent; 90% [...] anterior descending: This (more content not included)... [facility] 08-18-2023 Note Hospital Medicine Discharge Summary Final Discharge Diagnosis: Coronary artery disease involving [place] coronary artery of [place] heart with unstable angina pectoris ([facility]) Admission Diagnosis: Chest pain [R07.9] Hospital course: 42 y.o. female who came from home with NSTEMI. This is a 42-year-old female with a medical history including CABG, hypertension, hyperlipidemia, spinal stenosis, polycystic ovary, chronic migraines, a history of cocaine use, a history of cigarette smoking, and degenerative disc disease with spinal stenosis. The patient was transferred from [facility] for concerns of managed stable angina [...] Center 09/08/2023 11:00 AM Sylvia Degroot MD [facility] Your medication list START taking these medications [...] Your Medications These medications were sent to [facility]/pharmacy #[id number] [place] [address] atorvastatin 40 mg tablet clopidogrel 75 mg [...] Judge MD Hospital Medicine 08/18/2023 10:38 AM [facility] 08-17-2023 Note Patient: Travis mac Procedure Information Date/Time: 08/17/23 1530 Procedure: Left heart cath Location: [facility] SENIOR ENGINEERING SPECIALIST 3 / [facility] (Cath) Providers: Santos Rodney MD Clinical information reviewed: Tobacco Allergies [...] Plan discussed with attending. Additional Equipment Requests [facility] 08-17-2023 Note 08/17/23 1133 Admission Assessment Questions [...] Discharge? No Does the patient have a shoe parts caser assigned to them through their insurance? No [...] Yes Plan to return home with . [facility] 08-17-2023 Note Hospital Medicine Daily Progress Note - 08/17/2023 11:08 AM; Room: [address] [place] [address] Admission: 08/16/2023 10:23 PM; Length of stay: 1 days THE HOSPITALIST TEAM PREFERS TO USE [employer] CHAT FOR COMMUNICATION 7AM-7PM. IF I DO NOT RESPOND WITHIN 15 MINUTES, PLEASE PAGE ME/CALL THROUGH THE [employer]. FROM 7PM-7AM, PLEASE PAGE [phone](COVR) Code Status: Full Code Barriers to Discharge: [...] Academy of Nutrition and Dietetics and the [place] [employer] of Enteral and Parenteral Nutrition, meets [...] heparin, 0-28 Units/kg/hr, Last Rate: 15 Units/kg/hr (08/16/23 3419) Pertinent Investigations Hematology: Results from last 7 [...] LDL 114 08/16/2023 No results found for: [id number] , IRON , TIBC , C3 , C4 , TUSHAR , CANCA , ASO , PSA , CEA , CA125 , CA199 , AFP , CA153 Imaging ECG 12 lead Normal sinus rhythm Normal ECG When compared with ECG of 01-MAR-2012 13:42, T wave inversion no longer evident in Anterior leads Discharge Planning Signed Robinson Judge MD [facility] Medicine 08/17/2023 11:08 AM [facility] 08-17-2023 Note . Hospital Medicine History and Physical 08/16/2023 11:10 PM THE HOSPITALIST TEAM PREFERS TO USE [employer] CHAT FOR COMMUNICATION 7AM-7PM. IF I DO NOT RESPOND WITHIN 15 MINUTES, PLEASE PAGE ME/CALL THROUGH THE [employer] TENDER. FROM 7PM-7AM, PLEASE PAGE [phone](COVR) Chief Complaint No chief complaint on file. [...] spinal stenosis. The patient was transferred from [facility] for concerns of managed stable angina [...] this hospital stay by a member of [facility] Medicine. Past Medical History History reviewed. No [...] Not on f (more content not included)... [facility] Summary Purpose Family History No Family History Records FoundNo Family History Records FoundNo Family History Records Found Advance Directives No Advanced Directives Records FoundNo Advanced Directives Records FoundNo Advanced Directives Records Found Additional Source Comments INFORMATION SOURCE (unrecogn ized section and content) DATE CREATED AUTHOR 03/25/2018 Kirsten tate DATE CREATED AUTHOR AUTHOR'S ORGANIZ ATION 10/17/2021 [facility] DATE CREATED AUTHOR AUTHOR'S ORGANIZ ATION 10/17/2023 [facility] FOR RECORDS PERTAINING TO PATIENTS WHO [...] BE BASED ON THE PRIMARY CLINICAL RECORDS. [employer] [facility]. provides no warranty or guarantee of the accuracy or completeness of information in this document.
[2023-11-06 12:08] LABS: Chol HDL Ratio 2.8; Cholesterol 115 mg/dL (<=200); HDL Cholesterol 41 mg/dL (40-60); LDL Cholesterol Calculated 59.2 mg/dL; Triglycerides 74 mg/dL (<=150); VLDL CHOLESTEROL 14.8 mg/dL
== END 2023-11-06 11:31 | disposition home or self-care (01) ==
LOC: LAB 11:31
PROVIDERS: PCP Family Medicine; Visit Provider Internal Medicine Interventional Cardiology
DX: E78.2 Mixed hyperlipidemia (principal)
CPT/HCPCS: 36415; 80061

== ENCOUNTER 2023-11-14 13:48 | Outpatient (OUT) | payer OTHER, SELFPAY ==
--- NOTE | 2023-11-14 14:55 | CA_ITS ---
Patient Name: TRAVIS RIVAS MR#: [id number] : 1980 Exam Date: 11/14/2023 Ordering Doctor: DR SANTOS CABRERA M.D. ECHOCARDIOGRAM REPORT PROCEDURE: CA ECHO DOPPLER COMPLETE INDICATIONS: Shortness of breath COMPARISON: None. DESCRIPTION: COMPLETE ECHOCARDIOGRAM Real-time transthoracic echocardiography with 2D, M-mode, spectral and color flow Doppler performed. QUALITY: Technical quality was good. LEFT VENTRICLE: Normal chamber size. Mildly increased left ventricular wall thickness. LV EF: Global left ventricular systolic function is normal. Calculated left ventricular ejection fraction is 69%. No regional wall motion abnormalities. DIASTOLIC: Normal diastolic function. ATRIAL SEPTUM: Inadequately seen. LEFT ATRIUM: Normal chamber size. RIGHT ATRIUM: Normal chamber size. RIGHT VENTRICLE: Normal chamber size. Normal right ventricular systolic function. TRICUSPID VALVE: Normal mobility and thickness. No stenosis with trivial regurgitation. Mild pulmonary hypertension. RVSP 35mmHg MITRAL VALVE: Normal mobility and thickness. No evidence of mitral valve stenosis. There is no mitral annular calcification. Trivial mitral regurgitation. AORTIC VALVE: Normal trileaflet appearance. No visible sclerosis. Normal leaflet mobility. No evidence of aortic valve stenosis. Trivial aortic regurgitation. AORTIC ROOT: Normal diameter and appearance. PULMONIC VALVE: Normal thickness and mobility. No stenosis. Trivial regurgitation. PERICARDIUM: No evidence of pericardial effusion. IVC: Collapses with inspirations. Normal size. CONCLUSION: 1. Global left ventricular systolic function is normal; visually estimated ejection fraction is 60 to 65% 2. Normal right ventricular size and systolic function 3. Mildly increased left ventricular wall thickness 4. Normal diastolic function 5. Left atrium is normal in size 6. Mildly elevated right ventricular systolic pressure; RVSP 55 mmHg 7. No significant valvular abnormalities Adult Echocardiography Procedure Report Left Ventricle LVEDD (3.7 - 5.6 cm): 4.47 cm LVESD (2.2 - 4.0 cm): 2.92 cm LVIVS thickness (0.6 - 1.2 cm): 1.36 cm LVPW thickness (0.5 - 1.0 cm): 1.15 cm e': 0.13 m/s E - e': 6.00 LVOT Max Gradient: 5.65 mm[Hg] LVOT Area (cm2): 1.19 m/s Peak Velocity (LVOT): 1.19 m/s Mean Velocity (LVOT): 0.69 m/s LVOT Diameter 1.95 cm Left Ventricular Ejection Fraction: 68.54 % Left Atrium LA Volume Index (2D A2C): 19.67 ml/m2 Left Atrium Systolic Dimension: 3.84 cm Mitral Valve MV E to A Ratio: 1.09 Mitral Valve A-Wave Peak Velocity: 0.73 m/s Mitral Valve E-Wave Peak Velocity: 0.80 m/s Right Ventricle RV Internal Diastolic Dimension: 3.56 cm Aorta AO Root Diam: 3.46 cm Ascending Ao Diam: 3.13 cm Aortic Valve AoV Area (Peak Eduardo): 2.78 cm2, 2.78 cm2 AoV Area (VTI): 2.78 cm2, 2.78 cm2 Peak Velocity(Antegrade Flow): 1.28 m/s Peak Gradient(Antegrade Flow): 6.56 mm[Hg] Mean Velocity(Antegrade Flow): 0.87 m/s Mean Gradient(Antegrade Flow): 3.45 mm[Hg] Velocity Time Integral: 28.55 cm Tricuspid Valve Peak Velocity (Regurgitant Flow): 2.16 m/s, 2.54 m/s, 2.81 m/s Pulmonic Valve Mean Gradient: 1.84 mm[Hg], 2.18 mm[Hg] Mean Velocity: 0.64 m/s, 0.69 m/s Peak Velocity: 0.94 m/s Peak Gradient: 3.20 mm[Hg], 3.81 mm[Hg] Right Atrium Right Atrium Systolic Pressure: 89.25 ml, 89.25 ml Dictated by: Joleen Cotto M.D. on 11/16/2023 at 09:00 Approved by: Joleen Cotto M.D. on 11/16/2023 at 09:04
== END 2023-11-14 13:49 | disposition home or self-care (01) ==
LOC: CARD 13:49
PROVIDERS: PCP Family Medicine; Visit Provider Internal Medicine Interventional Cardiology
DX: R06.02 Shortness of breath (principal)
CPT/HCPCS: 93306

== ENCOUNTER 2023-11-21 09:17 | Outpatient (RCR) | payer OTHER, SELFPAY | END 2023-12-21 15:05 | disposition home or self-care (01) | LOC: CR 09:17 | PROVIDERS: PCP Family Medicine; Visit Provider Internal Medicine Interventional Cardiology | DX: Z98.61 Coronary angioplasty status (principal) ==

== ENCOUNTER 2023-12-06 14:35 | Outpatient (OUT) | payer OTHER, SELFPAY ==
--- OUTSIDE RECORDS SUMMARY | 2023-12-06 15:00 | XMS_ITS | CCD ---
Author Organization [facility] Care Team Providers Care Implementation Lead Name Role Phone WILIAN LOZANO Unavailable Unavailable HOLINDSEY SchroederLAS Unavailable Unavailable HORANI, ROBINSON Referring Unavailable MOUKARBEL, SANTOS Referring Unavailable MOUKARBEL, SANTOS Referring Unavailable ALGHOTHANISYLVIA Attending Unavailable MOUKARBEL, SANTOS Admitting Unavailable MOUKARBEL, SANTOS Attending Unavailable PAY, MARYAM Referring Unavailable HORANI, ROBINSON Attending Unavailable JANAE, JASON Admitting Unavailable MOUKARBEL, SANTOS Attending Unavailable HORANI, ROBINSON Referring Unavailable MERZA, NOORALDIN Referring Unavailable HORANI, ROBINSON Referring Unavailable Allergies Allergy Classification Reported Allergen(s) Allergy Type Date of Onset Reaction(s) Facility (1 source) haloperidol Drug Allergy [facility] Repository (1 source) levamisole Drug Allergy [facility] Repository (1 source) nalbuphine Drug Allergy [facility] Repository (1 source) risperiDONE Drug Allergy [facility] Repository (1 source) Haloperidol; Translations: [HALOPERIDOL] Drug Allergy 03-10-2014 [facility] Repository (1 source) Isosorbide; Translations: [ISOSORBIDE MONONITRATE] Drug Allergy 03-10-2014 [facility] Repository (1 source) Nalbuphine; Translations: [NALBUPHINE] Drug Allergy 03-10-2014 [facility] Repository (1 source) risperiDONE; Translations: [RISPERIDONE] Drug Allergy 03-10-2014 [facility] Repository Problems Problem Classification Problem Date Documented Date Episodic/Chronic Coronary atherosclerosis and other heart disease (6 sources) Atherosclerotic heart disease of [place] coronary artery with other forms of angina pectoris; Translations: [Atherosclerotic heart disease of [place] coronary artery without angina pectoris] Onset: 09-08-2023 Chronic Coronary atherosclerosis and other heart disease (2 sources) Presence of coronary angioplasty implant and graft; Translations: [Presence of coronary angioplasty implant and graft] Onset: 11-06-2023 Episodic Disorders of lipid metabolism (2 sources) Mixed hyperlipidemia; Translations: [Mixed hyperlipidemia] Onset: 08-18-2023 Chronic Essential hypertension (2 sources) Essential (primary) hypertension; Translations: [Essential (primary) hypertension] Onset: 08-18-2023 Chronic Nonspecific chest pain (2 sources) Chest pain, unspecified; Translations: [Chest pain, unspecified] Onset: 08-17-2023 Episodic Other lower respiratory disease (2 sources) Shortness of breath; Translations: [Shortness of breath] Onset: 11-06-2023 Episodic Results Test Name Value Interpretation Reference Range Facility 36on 11-13-2023 36 Regarding lab result s from 11/06/2023: MD Francisca Raya MA please tell her her cholesterol levels are good but given her aggressive disease I want to lower it even further. I want her to add ezetimibe 10 mg daily. And get a lipid profile prior to her next visit. LM for patient letting her know Zetia was faxed to her pharmacy per Dr. Rodney. I asked her to have repeat lipids prior to her apt on 12/08/2023. Order faxed to [facility]. Normal [facility] Office Visiton 11-06-2023 Follow-up visit [id number] Travis Rivas 1980 F Date Provider Department [facility] Family History Problem Relation Age of Onset Coronary artery disease Mother Brain Aneurysm Mother Lung cancer Father Family Status - Relation Status Age at Mother Father Level of Service:83639 [place] OFFICE/OUTPATIENT ESTABLISHED MOD MDM 30 MIN Normal [facility] HPon 10-05-2023 HP -- Attestation signed by Santos Rodney MD at 10/05/2023 8:31 AM I personally saw and examined the patient on the same date of service as resident/fellow mAanda Pathak. I discussed the findings and therapeutic [...] intervention. Amanda Pathak MD Cardiovascular Medicine Fellow [facility] Normal [facility] NURSNOTEon 10-05-2023 NURSNOTE RN educated pt on d/ c instructions. RN encouraged pt to voice any questions or concerns. Pt verbalizes no questions or concerns at this time. Pt was wheeled off of unit with all of belongings. Normal [facility] Orders Onlyon 09-27-2023 Orders Only [id number] Travis Rivas Sugey 1980 F Date Provider Department Center 09/27/2023 Yared-TAI SHOEMAKER [facility] Family History Problem Relation Age of Onset Coronary artery disease Mother Brain Aneurysm Mother Lung cancer Father Family Status - Relation Status Age at Mother Father Normal [facility] Office Visiton 09-08-2023 Follow-up visit [id number] Travis Rivas Sugey 1980 Date Provider Department Center 09/08/2023 3848-SYLVIA DEGROOT TWY[facility] Family History Problem Relation Age of Onset Coronary artery disease Mother Brain Aneurysm Mother Lung cancer Father Family Status - Relation Status Age at Mother Father Level of Service:36492 [place] OFFICE/OUTPATIENT ESTABLISHED LOW MDM 20 MIN Normal [facility] Orders Onlyon 09-08-2023 Orders Only [id number] Travis Rivas Sugey 1980 Provider Department Center 09/08/2023 895-TIAN MARY TWYLA [facility] Family History Problem Relation Age of Onset Coronary artery disease Mother Brain Aneurysm Mother Lung cancer Father Family Status - Relation Status Age at Mother Father Normal [facility] 30on 08-18-2023 30 Problem: Pain - [...] and behaviors that affect risk of falls Kuna fall precautions as indicated by assessment Educate [...] for the shift include VSS; safety Normal [facility] BASIC METABOLIC PANELon 12 Anion gap [Moles/Vol] 9 mmol/L Normal 7-20 [facility] Comment on above: Performed By: #### L [id number] ####[facility] (BEAKER)[address] [address] Calcium [Mass/Vol] 9.3 mg/dL Normal 8.6-10.3 [facility] Comment on above: Performed By: #### L [id number] ####[facility] (BEAKER)[address] [address] Chloride [Moles/Vol] 109 mmol/L High 98-107 [facility] Comment on above: Performed By: #### L [id number] ####[facility] ([facility])[address] [address] CO2 [Moles/Vol] 22 mmol/L Normal 21-31 [facility] Comment on above: Performed By: #### L [id number] ####[facility] (BEAKER)[address] [address] Creatinine [Mass/Vol] 0.71 mg/dL Normal 0.60-1.20 [facility] Comment on above: Performed By: #### L [id number] ####[facility] (BEAKER)[address] [place] [address] GLOMERULAR FILTRATION RATE ML/MIN/1.73 SQ M.PREDICTED 108.8 mL/min/1.73m*2 Normal >60.0 [facility] Comment on above: Result Comment: The [facility]???s estimated glomerular filtration rate (eGFR) will [...] of individuals. Performed By: #### L [id number] ####[facility] ([facility])[address] [place] [address] Glucose [Mass/Vol] 100 mg/dL Normal 70-100 [facility] Comment on above: Performed By: #### L [id number] ####[facility] ([facility])[address] [place] [address] Potassium [Moles/Vol] 4.3 mmol/L Normal 3.5-5.1 [facility] Comment on above: Performed By: #### L [id number] ####[facility] ([facility])[address] [place] [address] Sodium [Moles/Vol] 136 mmol/L Normal 136-145 [facility] Comment on above: Performed By: #### L [id number] ####[facility] ([facility])[address] [address] Urea nitrogen [Mass/Vol] 15 mg/dL Normal 7-25 [facility] Comment on above: Performed By: #### L [id number] ####[facility] ([facility])[address] [place] [address] UREA NITROGEN/CREATININE (MASS RATIO) IN SER/PLAS 21.1 Normal [facility] Comment on above: Performed By: #### L [id number] ####[facility] (BEAKER)[address] [place] [address] MAGNESIUMon 08-18-2023 Magnesium [Mass/Vol] 2.0 mg/dL Normal 1.9-2.7 [facility] Comment on above: Performed By: #### L [id number] ####[facility] (BEAKER)[address] [place] [address] 30on 08-17-2023 30 The patient is Moderately [...] appropriate resources Outcome: Progressing Flowsheets (Taken 08/17/2023 07) Discharge to home or other facility with appropriate resources: Identify barriers to discharge with patient and caregiver Arrange for needed discharge resources and transportation as appropriate Identify discharge learning needs (meds, wound care, etc) Problem: Chronic Conditions and Co-morbidities Goal: Patient's chronic conditions and co-morbidity symptoms are monitored and maintained or improved Outcome: Progressing Flowsheets (Taken 08/17/2023 07) Care Plan - Patient's Chronic Conditions and [...] acceptable level of pain Outcome: Progressing Normal [facility] 30 Daily Case Managemen t Update [...] Orders (From admission, onward) Start Ordered 08/17/23 1546 Inpatient consult to Cardiothoracic Surgery Once Specialty: Cardiothoracic Surgery Provider: (Not yet assigned) Question Answer Comment Consulting Group CARDIOTHORACIC SURGERY TEAM Reason for Consult? severe 3 vessel coronary artery disease Level of Consultation Consultation and Management 08/17/23 1546 08/16/23 2306 Inpatient consult to Cardiology Once Specialty: Cardiology Provider: (Not yet assigned) Question Answer Comment Consulting Group CARDIOLOGY TEAM Reason for Consult? NSTEMI Level of Consultation Consultation and Management 08/16/23 2308 Normal [facility] 30 The patient is Moderately Stable - Low risk of patient condition declining or worsening The patient's goals for the shift include The clinical goals for the shift include stable vs Over the shift, the patient continued to make progress toward the following goals. Normal [facility] ANTI-XA (HEPARIN LEVEL)on HEPARIN UNFRACTIONATED (U/ML) IN PPP BY CHROMOGENIC METHOD 0.24 IU/mL Low 0.3-0.7 [facility] Comment on above: Order Comment: Check anti-Xa level every 6 hours while on heparin infusion, or per protocol. Result Comment: Jen roxaban and Apixaban will interfere with the anti Xa assay used to monitor UFH and LMWH. Performed By: #### L [id number] #### [facility] ([facility]) [address] [place] [address] HEPARIN UNFRACTIONATED (U/ML) IN PPP BY CHROMOGENIC METHOD 0.36 IU/mL Normal 0.3-0.7 [facility] Comment on above: Order Comment: Check anti-Xa level every 6 hours while on heparin infusion, or per protocol. Result Comment: Agenda roxaban and Apixaban will interfere with the anti Xa assay used to monitor UFH and LMWH. Performed By: #### L [id number] #### [facility] (BEAKER) [address] [place] [address] HEPARIN UNFRACTIONATED (U/ML) IN PPP BY CHROMOGENIC METHOD <0.10 Invalid Interpretation Code 0.3-0.7 [facility] Comment on above: Order Comment: Check anti-Xa level every 6 hours while on heparin infusion, or per protocol. Result Comment: Jen roxaban and Apixaban will interfere with the anti Xa assay used to monitor UFH and LMWH. Performed By: #### L [id number] #### [facility] ([facility]) [address] [place] [address] APTTon 08-17-2023 ACTIVATED PARTIAL THROMBOPLASTIN TIME IN PPP BY COAGULATION ASSAY 28.5 Seconds Normal 25.0-35.0 [facility] Comment on above: Result Comment: Clin ical significance of the APTT is questionable in the presence of heparin. Performed By: #### L [id number] ####[facility] ([facility])[address] [place] [address] B-TYPE NATRIURETIC PEPTIDEon 08-17-2023 Natriuretic peptide B (Bld) [Mass/Vol] 47 pg/mL Normal 0-100 [facility] Comment on above: Performed By: #### L [id number] #### [facility] ([facility]) [address] [place] [address] BLOOD CULTUREon 08-17-2023 Bacteria identified Cx Nom (Bld) No growth at 5 days Normal [facility] Comment on above: Order Comment: From a different site than #1. Performed By: #### L [id number] ####[facility] ([facility])[address] [address] CBCon 08-17-2023 Erythrocyte distribution width (RBC) [Ratio] 14.6 % Normal 11.5-15.0 [facility] Comment on above: Performed By: #### L [id number] #### [facility] ([facility]) [address] [place] [address] ERYTHROCYTE MEAN CORPUSCULAR HEMOGLOBIN CONCENTRATION (G/DL) BY AUTOMATED 33.6 g/dL Normal 32.0-35.0 [facility] Comment on above: Performed By: #### L [id number] #### [facility] ([facility]) [address] [place] [address] Hematocrit (Bld) [Volume fraction] 39.9 % Normal 36.0-48.0 [facility] Comment on above: Performed By: #### L [id number] #### [facility] ([facility]) [address] [address] Hemoglobin (Bld) [Mass/Vol] 13.4 g/dL Normal 12.0-15.0 [facility] Comment on above: Performed By: #### L [id number] #### [facility] ([facility]) [address] [place] [address] MCH (RBC) [Entitic mass] 30.8 pg Normal 27.0-33.0 [facility] Comment on above: Performed By: #### L [id number] #### [facility] ([facility]) [address] [place] [address] MCV (RBC) [Entitic vol] 91.7 fL Normal 82.0-98.0 [facility] Comment on above: Performed By: #### L [id number] #### [facility] ([facility]) [address] [place] [address] PLATELETS (10*3/UL) IN BLOOD AUTOMATED COUNT 244 10*3/uL Normal 150-400 [facility] Comment on above: Performed By: #### L [id number] #### [facility] ([facility]) [address] [place] [address] RBC (Bld) [#/Vol] 4.35 10*6/uL Normal 3.80-5.00 [facility] Comment on above: Performed By: #### L [id number] #### [facility] ([facility]) [address] [place] [address] WBC (Bld) [#/Vol] 11.03 10*3/uL High 4.00-10.60 [facility] Comment on above: Performed By: #### L [id number] #### [facility] ([facility]) [address] [place] [address] CBC WITH AUTO DIFFERENTIALon 08-17-2023 Basophils (Bld) [#/Vol] 0.06 10*3/uL Normal 0.00-0.20 [facility] Comment on above: Performed By: #### L [id number] #### [facility] ([facility]) [address] [place] [address] Basophils/100 WBC (Bld) 0.6 % Normal 0.0-1.0 [facility] Comment on above: Performed By: #### L [id number] #### [facility] ([facility] [address] [place] [address] Eosinophils (Bld) [#/Vol] 0.14 10*3/uL Normal 0.00-0.50 [facility] Comment on above: Performed By: #### L [id number] #### [facility] ([facility] [address] [place] [address] Eosinophils/100 WBC (Bld) 1.3 % Normal 0.0-6.0 [facility] Comment on above: Performed By: #### L [id number] #### [facility] ([facility]) [address] [place] [address] Erythrocyte distribution width (RBC) [Ratio] 14.6 % Normal 11.5-15.0 [facility] Comment on above: Performed By: #### L [id number] #### [facility] ([facility]) [address] [place] [address] ERYTHROCYTE MEAN CORPUSCULAR HEMOGLOBIN CONCENTRATION (G/DL) BY AUTOMATED 33.5 g/dL Normal 32.0-35.0 [facility] Comment on above: Performed By: #### L [id number] #### [facility] ([facility]) [address] [address] Hematocrit (Bld) [Volume fraction] 40.3 % Normal 36.0-48.0 [facility] Comment on above: Performed By: #### L [id number] #### [facility] (BEAKER) [address] [place] [address] Hemoglobin (Bld) [Mass/Vol] 13.5 g/dL Normal 12.0-15.0 [facility] Comment on above: Performed By: #### L [id number] #### [facility] (BEAKER) [address] [place] [address] Immature granulocytes (Bld) [#/Vol] 0.03 10*3/uL Normal 0.00-0.20 [facility] Comment on above: Performed By: #### L [id number] #### [facility] ([facility] [address] [place] [address] Immature granulocytes/100 WBC (Bld) 0.3 % Normal 0.0-1.0 [facility] Comment on above: Performed By: #### L [id number] #### [facility] ([facility] [address] [place] [address] Lymphocytes (Bld) [#/Vol] 2.18 10*3/uL Normal 1.20-4.00 [facility] Comment on above: Performed By: #### L [id number] #### [facility] ([facility] [address] [place] [address] Lymphocytes/100 WBC (Bld) 20.6 % Normal 20.0-45.0 [facility] Comment on above: Performed By: #### L [id number] #### [facility] ([facility]) [address] [place] [address] MCH (RBC) [Entitic mass] 30.7 pg Normal 27.0-33.0 [facility] Comment on above: Performed By: #### L [id number] #### [facility] (BEAKER) [address] [place] [address] MCV (RBC) [Entitic vol] 91.6 fL Normal 82.0-98.0 [facility] Comment on above: Performed By: #### L [id number] #### [facility] (BEAKER) [address] [place] [address] Monocytes (Bld) [#/Vol] 0.69 10*3/uL Normal 0.10-1.00 [facility] Comment on above: Performed By: #### L [id number] #### [facility] (BEAKER) [address] [place] [address] Monocytes/100 WBC (Bld) 6.5 % Normal 5.0-12.0 [facility] Comment on above: Performed By: #### L [id number] #### [facility] ([facility]) [address] [place] [address] Neutrophils (Bld) [#/Vol] 7.49 10*3/uL Normal 1.60-7.60 [facility] Comment on above: Performed By: #### L [id number] #### [facility] ([facility]) [address] [place] [address] Neutrophils/100 WBC (Bld) 70.7 % Normal 40.0-72.0 [facility] Comment on above: Performed By: #### L [id number] #### [facility] ([facility]) [address] [place] [address] NRBC (PER 100 WBCS) BY AUTOMATED COUNT 0.0 % Normal 0 [facility] Comment on above: Performed By: #### L [id number] #### [facility] ([facility]) [address] [place] [address] PLATELETS (10*3/UL) IN BLOOD AUTOMATED COUNT 238 10*3/uL Normal 150-400 [facility] Comment on above: Performed By: #### L [id number] #### [facility] ([facility]) [address] [place] [address] RBC (Bld) [#/Vol] 4.40 10*6/uL Normal 3.80-5.00 [facility] Comment on above: Performed By: #### L [id number] #### [facility] ([facility]) [address] [place] [address] WBC (Bld) [#/Vol] 10.59 10*3/uL Normal 4.00-10.60 [facility] Comment on above: Performed By: #### L [id number] #### [facility] ([facility] [address] [address] COMPREHENSIVE METABOLIC PANE August 08-17-2023 Albumin [Mass/Vol] 4.1 g/dL Normal 3.5-5.7 [facility] Comment on above: Performed By: #### L [id number] #### [facility] ([facility]) [address] [address] ALP [Catalytic activity/Vol] 69 U/L Normal 34-104 [facility] Comment on above: Performed By: #### L [id number] #### [facility] ([facility]) [address] [address] ALT [Catalytic activity/Vol] 16 U/L Normal 7-52 [facility] Comment on above: Performed By: #### L [id number] #### [facility] ([facility]) [address] [address] Anion gap [Moles/Vol] 13 mmol/L Normal 7-20 [facility] Comment on above: Performed By: #### L [id number] #### [facility] ([facility]) [address] [address] AST [Catalytic activity/Vol] 13 U/L Normal 13-39 [facility] Comment on above: Performed By: #### L [id number] #### [facility] ([facility]) [address] [address] Bilirubin [Mass/Vol] 0.3 mg/dL Normal 0.3-1.0 [facility] Comment on above: Performed By: #### L [id number] #### [facility] ([facility]) [address] [address] Calcium [Mass/Vol] 8.9 mg/dL Normal 8.6-10.3 [facility] Comment on above: Performed By: #### L [id number] #### [facility] ([facility]) [address] [address] Chloride [Moles/Vol] 109 mmol/L High 98-107 [facility] Comment on above: Performed By: #### L [id number] #### [facility] ([facility]) [address] [address] CO2 [Moles/Vol] 18 mmol/L Low 21-31 [facility] Comment on above: Performed By: #### L [id number] #### [facility] ([facility]) [address] [place] [address] Creatinine [Mass/Vol] 0.66 mg/dL Normal 0.60-1.20 [facility] Comment on above: Performed By: #### L [id number] #### [facility] ([facility]) [address] [place] [address] GLOMERULAR FILTRATION RATE ML/MIN/1.73 SQ M.PREDICTED 112.2 mL/min/1.73m*2 Normal >60.0 [facility] Comment on above: Result Comment: The [facility]???s estimated glomerular filtration rate (eGFR) will [...] individuals. Performed By: #### L [id number] #### [facility] ([facility]) [address] [place] [address] Glucose [Mass/Vol] 98 mg/dL Normal 70-100 [facility] Comment on above: Performed By: #### L [id number] #### [facility] ([facility]) [address] [place] [address] Potassium [Moles/Vol] 3.8 mmol/L Normal 3.5-5.1 [facility] Comment on above: Performed By: #### L [id number] #### [facility] ([facility]) [address] [place] [address] Protein [Mass/Vol] 6.7 g/dL Normal 6.0-8.3 [facility] Comment on above: Performed By: #### L [id number] #### [facility] (BEAKER) [address] [place] [address] Sodium [Moles/Vol] 136 mmol/L Normal 136-145 [facility] Comment on above: Performed By: #### L [id number] #### [facility] (BEAKER) [address] [place] [address] Urea nitrogen [Mass/Vol] 14 mg/dL Normal 7-25 [facility] Comment on above: Performed By: #### L [id number] #### [facility] ([facility] [address] [place] [address] UREA NITROGEN/CREATININE (MASS RATIO) IN SER/PLAS 21.2 Normal [facility] Comment on above: Performed By: #### L [id number] #### [facility] ([facility] [address] [place] [address] CONSULTon 08-17-2023 CONSULT Inpatient consult to Cardiothoracic [...] with spinal stenosis. She was transferred from [facility] for concerns of managed stable angina [...] CABG. CT Surgery was consulted in the cathodic protection technician and case was personally discussed with Dr. [...] Bubble Study Result Date: 08/17/2023 1 1 [facility] [address] [place] [address] [phone] (fax) Echocardiogram-[facility] Name: TRAVIS RIVAS Study Date: 08/17/2023 12:45 PM B/P: 128 mmHg/90 mmHg HR: 64 bpm Date of : 1980 Location: [facility] Height: 66 in. Age: 42 year(s) Patient [...] motion abnorma (more content not included)... Normal [facility] CONSULT -- Attestation signed by David [...] the emergency room as a transfer from [facility] with concern for stable angina in [...] ordered upon transfer. Patient saw cardiology at [facility] on 03/2014 but this was last [...] flat. Palp (more content not included)... Normal [facility] HEMOGLOBIN A1Con 08-17-2023 Glucose [Mass/Vol] 117 mg/dL Normal [facility] Comment on above: Performed By: #### L [id number] ####[facility] (BEAKER)[address] [place] [address] HbA1c (Bld) [Mass fraction] 5.7 % Normal 4.0-6.0 [facility] Comment on above: Performed By: #### L [id number] ####[facility] (BEAKER)[address] [place] [address] HPon 08-17-2023 HP H&P reviewed. The patient was examined and there are no changes to the H&P. 42 y.o. female who presented the emergency room as a transfer from [facility] with concern for stable angina in [...] for patency of previously placed graft. Normal [facility] LACTIC ACID WITH 4 HOUR REFL EXon 08-17-2023 LACTATE (MMOL/L) IN SER/PLAS 1.2 mmol/L Normal 0.5-2.2 [facility] Comment on above: Performed By: #### L [id number] #### [facility] ([facility]) [address] [place] [address] LIPID PANELon 08-17-2023 CHOL/HDL 4.4 mg/dL Normal [facility] Comment on above: Performed By: #### L [id number] #### [facility] (BEAKER) [address] [address] Cholesterol [Mass/Vol] 148 mg/dL Normal 120-200 [facility] Comment on above: Performed By: #### L [id number] #### [facility] ([facility]) [address] [address] Magnesium [Mass/Vol] 119 mg/dL Normal 40-149 [facility] Comment on above: Result Comment: TRIG LYCERIDE REFERENCE RANGE: 20 YEARS AND OLDER CARDIOVASCULAR RISK LESS THAN 150 mg/dL LOW RISK 150 TO 199 mg/dL BORDERLINE RISK 200 mg/dL AND GREATER HIGH RISK Performed By: #### L [id number] #### [facility] ([facility]) [address] [facility] [place] [address] Magnesium [Mass/Vol] 90 mg/dL Normal 0-160 [facility] Comment on above: Performed By: #### L [id number] #### [facility] ([facility]) [address] [place] [address] Magnesium [Mass/Vol] 34 mg/dL Normal 23-92 [facility] Comment on above: Performed By: #### L [id number] #### [facility] (BEAKER) [address] [facility] [place] [address] NON HDL CHOL. (LDL+VLDL) 114 Normal [facility] Comment on above: Performed By: #### L [id number] #### [facility] (BEAKER) [address] [place] [address] TOTAL VLDL-C 24 mg/dL Normal 0-40 [facility] Comment on above: Performed By: #### L [id number] #### [facility] (BEAKER) [address] [address] MAGNESIUMon 08-17-2023 Magnesium [Mass/Vol] 1.7 mg/dL Low 1.9-2.7 [facility] Comment on above: Performed By: #### L [id number] ####[facility] (BEAzooo)[address] [place] [address] PHOSPHORUSon 08-17-2023 Magnesium [Mass/Vol] 3.4 mg/dL Normal 2.5-5.0 [facility] Comment on above: Performed By: #### L [id number] #### [facility] (BEAKER) [address] [place] [address] PROTIME-INRon 08-17-2023 INR IN PPP BY COAGULATION ASSAY 1.00 Normal 0.90-1.10 [facility] Comment on above: Result Comment: ACCC [...] 1995;108:[id number]-246S. Performed By: #### L [id number] #### [facility] (BEAKER) [address] [place] [address] PROTHROMBIN TIME (PT) IN PPP BY COAGULATION ASSAY 13.2 Seconds Normal 12.3-14.8 [facility] Comment on above: Performed By: #### L [id number] #### [facility] (BEAKER) [address] [place] [address] TOXICOLOGY PANEL URINEon AMPHETAMINE+METHAMP HETAMINE SCREEN (PRESENCE) IN URINE Negative Normal Negative [facility] Comment on above: Performed By: #### L [id number] #### [facility] ([facility]) [address] [address] BARBITURATES PRESENCE IN URINE BY SCREEN METHOD Negative Normal Negative [facility] Comment on above: Performed By: #### L [id number] #### [facility] ([facility]) [address] [address] Benzodiazepines Ql (U) Negative Normal Negative [facility] Comment on above: Performed By: #### L [id number] #### [facility] ([facility]) [address] [address] CANNABINOID (PRESENCE) IN URINE BY SCREEN METHOD Positive Abnormal Negative [facility] Comment on above: Performed By: #### L [id number] #### [facility] ([facility]) [address] [address] Cocaine Ql (U) Negative Normal Negative [facility] Comment on above: Performed By: #### L [id number] #### [facility] ([facility]) [address] [address] METHADONE (PRESENCE) IN URINE BY SCREEN METHOD Negative Normal Negative [facility] Comment on above: Performed By: #### L [id number] #### [facility] ([facility]) [address] [address] OPIATES (PRESENCE) IN URINE BY SCREEN METHOD Negative Normal Negative [facility] Comment on above: Performed By: #### L [id number] #### [facility] ([facility]) [address] [address] PHENCYCLIDINE PRESENCE IN URINE BY SCREEN METHOD Negative Normal Negative [facility] Comment on above: Performed By: #### L [id number] #### [facility] ([facility]) [address] [address] Propoxyphene Screen Ql (U) Negative Normal Negative [facility] Comment on above: Performed By: #### L [id number] #### [facility] ([facility]) [address] [address] TRICYCLIC ANTIDEPRESSANTS (PRESENCE) IN URINE Negative Normal Negative [facility] Comment on above: Performed By: #### L [id number] #### [facility] ([facility]) [address] [place] [address] TROPONIN Ion 08-17-2023 Troponin I.cardiac [Mass/Vol] 0.00 ng/mL Normal 0.00-0.04 [facility] Comment on above: Performed By: #### L [id number] ####[facility] ([facility])[address] [facility] [place] [address] Troponin I.cardiac [Mass/Vol] 0.01 ng/mL Normal 0.00-0.04 [facility] Comment on above: Performed By: #### L [id number] #### [facility] ([facility]) [address] [address] Troponin I.cardiac [Mass/Vol] 0.04 ng/mL Normal 0.00-0.04 [facility] Comment on above: Performed By: #### L [id number] #### [facility] ([facility]) [address] [address] TSH3 REFLEX TO FT4on 023 THYROTROPIN (MIU/L) IN SER/PLAS BY DETECTION LIMIT <= 0.05 MIU/L 2.69 mIU/L Normal 0.34-5.60 [facility] Comment on above: Performed By: #### L [id number] #### [facility] ([facility]) [address] [address] URINALYSIS WITH REFLEX CULTU REon 08-17-2023 BILIRUBIN, TOTAL PRESENCE IN URINE Negative Normal Negative [facility] Comment on above: Order Comment: Micro scopics not performed on urines with negative chemical reactions unless requested on original order. Performed By: #### L [id number] #### [facility] ([facility]) [address] [address] Clarity (U) Clear Normal Clear [facility] Comment on above: Order Comment: Micro scopics not performed on urines with negative chemical reactions unless requested on original order. Performed By: #### L [id number] #### [facility] ([facility]) [address] [address] Color (U) Yellow Normal Yellow [facility] Comment on above: Order Comment: Micro scopics not performed on urines with negative chemical reactions unless requested on original order. Performed By: #### L [id number] #### [facility] ([facility]) [address] [address] Glucose (U) [Mass/Vol] Negative Normal Negative [facility] Comment on above: Order Comment: Micro scopics not performed on urines with negative chemical reactions unless requested on original order. Performed By: #### L [id number] #### [facility] ([facility]) [address] [address] HEMOGLOBIN PRESENCE IN URINE Negative Normal Negative [facility] Comment on above: Order Comment: Micro scopics not performed on urines with negative chemical reactions unless requested on original order. Performed By: #### L [id number] #### [facility] ([facility]) [address] [address] Ketones Ql (U) Negative Normal Negative [facility] Comment on above: Order Comment: Micro scopics not performed on urines with negative chemical reactions unless requested on original order. Performed By: #### L [id number] #### [facility] ([facility]) [address] [address] LEUKOCYTE ESTERASE PRESENCE IN URINE BY TEST STRIP Negative Normal Negative [facility] Comment on above: Order Comment: Micro scopics not performed on urines with negative chemical reactions unless requested on original order. Performed By: #### L [id number] #### [facility] ([facility]) [address] [address] NITRITE PRESENCE IN URINE Negative Normal Negative [facility] Comment on above: Order Comment: Micro scopics not performed on urines with negative chemical reactions unless requested on original order. Performed By: #### L [id number] #### [facility] (BEAKER) [address] [place] [address] pH (U) 5.0 [pH] Normal 5.0-8.0 [facility] Comment on above: Order Comment: Micro scopics not performed on urines with negative chemical reactions unless requested on original order. Performed By: #### L [id number] #### [facility] ([facility]) [address] [place] [address] Protein (U) [Mass/Vol] Negative Normal Negative [facility] Comment on above: Order Comment: Micro scopics not performed on urines with negative chemical reactions unless requested on original order. Performed By: #### L [id number] #### [facility] ([facility]) [address] [place] [address] Specific gravity (U) [Rel density] 1.024 High 1.015-1.020 [facility] Comment on above: Order Comment: Micro scopics not performed on urines with negative chemical reactions unless requested on original order. Performed By: #### L [id number] #### [facility] ([facility]) [address] [place] [address] COVID-19 Lab Corpon 09-06-19 SARS-CoV-2 (COVID-19) RNA PETAR+probe Ql (Unsp spec) Not detected Normal Not Detected [facility] Comment on above: Order Comment: Healt hcare Worker?: N Result Comment: This nucleic acid amplification test was developed and its performance characteristics determined by [employer]. Nucleic acid amplification tests include RT- PCR [...] detected) result in this assay. Performed at: [address] [id number] Radio Journalist: Jaems Calles PhD, Phone: [phone] PERFORMED BY: [place] [address] [place] [address] PATHOLOGIST WELDER FITTER HELPER DENNISE BEATTY M.D. Performed By: #### C [...] its performance Donna Disclaimer characteristic determined by [employer] and Donna Disclaimer validated at [facility]. This Donna Disclaimer test has not been [...] Emergency Use Authorization for Coronavirus Donna Disclaimer iseas during the Public Health Emergency) Donna Disclaimer [...] is terminated or revoked sooner. PERFORMED BY: [address] [place] [address] PATHOLOGIST WELDER FITTER HELPER DENNISE BEATTY M.D. [facility] Comment on above: Performed By: #### S CHIP FLOODID-19 DONNA #### [address] ECG 12 lead ECG 07-11-2021 ECG 12 lead ECG [facility] [place] [address] Electrocardiograph Report Signed Patient: Travis Rivas MR#: [id number] : 1980 Acct:[id number] Age/Sex: 40 / F ADM Date: 07/11/21 Loc: ER Room: Type: DEP ER Attending Dr: Ordering Provider: AZIZA Zavala [...] By Maryam Ashley DO 07/13 1245 Normal [facility] Donna Ag Negativeon 07-11-20 Donna Ag Negative Negative Normal Negative [facility] Comment on above: Result Comment: This is a duplicate Donna SARS Antigen (KIERRA) result to be used for statistical tracking purpose only. PERFORMED BY: [place] [address] PATHOLOGIST WELDER FITTER HELPER DENNISE BEATTY M.D. Performed By: #### S ELMA FLOOD-19 DONNA #### [place] [address] [place] XR chest 1V portableon 07-11 XR chest 1V portable [facility] [place] [address] XRay Report Signed Patient: Travis Rivas MR#: [id number] : 1980 Acct:[id number] Age/Sex: 40 / F ADM Date: 07/11/21 Loc: ER Room: Type: [facility] ER Attending Dr: Ordering Provider: AZIZA Zavala [...] Serrano Jr., M.D.07/11/2021 3:02 PM Dictation Location: [place] [address] Transcribed By: [facility] 07/11/21 1502 Dictated By: Ralf Serrano Jr, MD 07/11/21 1456 Signed By: 07/11/21 1502 [facility] Encounters Encounter Date Encounter Type Care Provider Facility Start: 11-06-2023 End: 11-06-2023 ambulatory [facility] Start: 10-05-2023 ambulatory [facility] Start: 10-05-2023 End: 10-05-2023 ambulatory [facility] Start: 09-08-2023 End: 09[facility]08-[facility] Start: 08-17-2023 Evaluation and management of inpatient [facility] Start: 08-17-2023 Evaluation and management of inpatient [facility] Start: 08-17-2023 Evaluation and management of inpatient [facility] Start: 08-17-2023 End: 08-18-2023 Evaluation and management of inpatient [facility] Start: 03-24-2018 Patient encounter WILIAN Gill ity:H1 Payers Date Payer Category Payer Unknown [id number] 1959 Self-pay [id number] Clinical Notes 08-17-2023 to 11-06-2023 Note Date & Type Note Facility 11-06-2023 Note [facility] Subjective Travis Rivas is a 43 y.o. year old female patient being seen for follow up PCI RCA performed on 10/05/2023. She is getting SOB with minimal exertion. Says she was sent home from work the other day for this. Denies chest pain but gets a weird sensation . Patient Active Problem List Diagnosis ??? Chest pain ??? Coronary artery disease involving takotna coronary artery of takotna heart with unstable angina pectoris (CMS/HCC) ??? Former smoker ??? Primary hypertension ??? Mixed hyperlipidemia ??? Spinal stenosis ??? History of cocaine use ??? Abnormal vaginal bleeding ??? Kidney stone ??? Polycystic bilateral ovaries ??? Thyroid nodule ??? Coronary artery disease due to lipid rich plaque Family History Problem Relation Name Age of Onset ??? Coronary artery disease Mother ??? Brain Aneurysm Mother ??? Lung cancer Father Social History Tobacco Use ??? Smoking status: Some Days Packs/day: 1.5 Types: Cigarettes Last attempt to quit: 08/11/2023 Years since quittin.2 ??? Smokeless tobacco: Never Substance Use Topics ??? Alcohol use: Never HPI Travis is seen in follow up. She is a 43 y.o. female with prior history of coronary disease who underwent bypass surgery with NIETO to LAD in 2011 due to severe proximal LAD stenosis. At that time her circumflex and RCA had minimal disease. She presented with unstable angina in August 2023 and cardiac catheterization showed progression of her disease in the RCA and circumflex. She underwent stenting of the circumflex. This was followed by staged intervention to the RCA on 10/05/2023. Today she is seen in follow-up. She reports that since the first intervention in August 2023 she had not had chest pain however she has been having symptoms of chest discomfort and shortness of breath on mild exertion. No leg swelling. No palpitations. This is limiting her functional capacity. Review of Systems Cardiovascular: Positive for chest pain ( weird sensation ), dyspnea on exertion and palpitations ( racing ). Musculoskeletal: Positive for back pain. Gastrointestinal: Positive for bloating, diarrhea, flatus and hemorrhoids. Neurological: Positive for light-headedness. All other systems reviewed and are negative. Objective Visit Vitals BP (!) 146/100 (BP Location: Right arm, Patient Position: Sitting) Pulse 77 Ht 1.676 m (5' 6 ) Wt 102 kg (225 lb) SpO2 97% BMI 36.32 kg/m??? OB Status Having periods Smoking Status Some Days BSA 2.18 m??? Physical Exam Constitutional: Appearance: She is well-developed. She is not ill-appearing. HENT: Head: Normocephalic and atraumatic. Nose: Nose normal. Eyes: General: No scleral icterus. Pupils: Pupils are equal, round, and reactive to light. Neck: Thyroid: No thyromegaly. Vascular: No JVD. Cardiovascular: Rate and Rhythm: Normal rate and regular rhythm. Pulses: Radial pulses are 2+ on the right side and 2+ on the left side. Heart sounds: Normal heart sounds. No murmur heard. No friction rub. No gallop. Pulmonary: Effort: Pulmonary effort is normal. No respiratory distress. Breath sounds: Normal breath sounds. No wheezing or rales. Chest: Chest wall: No tenderness. Abdominal: General: Bowel sounds are normal. There is no distension. Palpations: Abdomen is soft. Tenderness: There is no abdominal tenderness. Musculoskeletal: General: No swelling. Cervical back: Neck supple. Skin: General: Skin is warm and dry. Neurological: General: No focal deficit present. Mental Status: She is alert and oriented to person, place, and time. Psychiatric: Mood and Affect: Mood normal. Behavior: Behavior is cooperative. Judgment: Judgment normal. Allergies Allergies Allergen Reactions ??? Haloperidol Anaphylaxis and Unknown ??? Nalbuphine Anaphylaxis and Unknown ??? Risperidone Anaphylaxis and Unknown Medications Current Outpatient Medications: ??? aspirin 81 mg chewable tablet, Chew 81 mg in the morning., Disp: , Rfl: ??? clopidogrel (Plavix) 75 mg tablet, Take 1 tablet (75 mg) by mouth in the morning. Do not start before 2023., Disp: 90 tablet, Rfl: 3 ??? diphenhydrAMINE (BENADryl) 50 mg tablet, Take 100 mg by mouth if needed at bedtime for itching., Disp: , Rfl: ??? metoprolol tartrate (Lopressor) 50 mg tablet, Take 50 mg by mouth in the morning and at bedtime., Disp: , Rfl: ??? nitroglycerin (Nitrostat) 0.4 mg SL tablet, Place 0.4 mg under the tongue every 5 (five) minutes if needed for chest pain., Disp: , Rfl: ??? rosuvastatin (Crestor) 40 mg tablet, Take 1 tablet (40 mg) by mouth in the morning., Disp: 90 tablet, Rfl: 3 ??? amLODIPine (Norvasc) 5 mg tablet, Take 1 tablet (5 mg) by mouth in the morning., Disp: 90 tablet, Rfl: 3 ??? isosorbide mononitrate ER (Imdur) 60 mg 24 hr tablet, Take 1 tablet (60 mg) by mouth in the morning. Do not crush or chew., D (more content not included)... [facility] 10-05-2023 Note Patient: Travis mac Procedure Information Date/Time: 10/05/23829 Procedure: Percutaneous coronary intervention (Left) Location: [facility] / [facility] (Cath) Providers: Santos Rodney MD [...] Plan discussed with fellow. Additional Equipment Requests [facility] 09-08-2023 Note nisa [facility] 09-08-2023 Note Cardiology Follow Up Progress Note [...] Value Ventricular Rate 67 Atrial Rate 67 FL Interval 168 QRS DURATION 86 QT Interval 408 QTC CALCULATION(BAZETT) 431 P [place] 49 R-[place] 77 T Wave [place] 67 Impression Normal sinus rhythm T wave abnormality, consider anterior ischemia Abnormal ECG When compared with ECG of 05-OCT-2023 07:15, No significant change was found Confirmed by Darrin MONTANO, L.S. (2) on 10/05/2023 11:09:31 AM Echo results: Complete Echo (TTE) w/wo Imaging Agent, Strain, 3D, Bubble Study Result Date: 08/17/2023 1 1 [facility] Heart Station [address] [place], [place] [id number] (fax) Echocardiogram-[facility] Name: TRAVIS RIVAS Study Date: 08/17/2023 12:45 PM B/P: 128 mmHg/90 mmHg HR: 64 bpm Date of : 1980 Location: [facility] Height: 66 in. Age: 42 year(s) Patient Room: 3122 Weight: 223 lb. Gender: Female Patient Status: InPt BSA: 2.09 m2 Indication: Chest Pain, CAD, H/O CABG, Smoker Examination: Echocardiogram (Complete), Lumason Contrast Patient Consent: Procedure explained to patient Exam Details Contrast: I.V. dose of Lumason Conclusions Left Ventricle: The left ventric (more content not included)... [facility] 09-08-2023 Note Patient here for [facility] and PCI. Still has some pressure in her chest. She's feeling much better though. Plan is for staged intervention. Review of Systems Cardiovascular: Positive for chest pain ( pressure ) and palpitations ( 1 or 2 once in awhile ). Respiratory: Positive for cough (improving). All other systems reviewed and are negative. [facility] 08-18-2023 Note Discharge education completed with patient at bedside; verbalized understanding. Copy of signed AVS placed in paper chart. Prescriptions sent electronically to requested pharmacy. Manufacturing Test Engineer RN escorted patient to main entrance lobby. [facility] 08-18-2023 Note [facility] INPAT IENT [...] Value Ventricular Rate 56 Atrial Rate 56 FL Interval 152 QRS DURATION 88 QT Interval 452 QTC CALCULATION(BAZETT) 436 P [place] 35 R-[place] 85 T Wave [place] 79 Impression Sinus bradycardia Nonspecific ST abnormality Abnormal ECG When compared with ECG of 17-AUG-2023 09:14, No significant change was found Confirmed by Ector Paniagua ([id number]) on 08/18/2023 8:48:38 AM 08/17/23 C with NIETO to LAD patent; 90% stenoses [...] anterior descending: This (more content not included)... [facility] 08-18-2023 Note Hospital Medicine Discharge Summary Final Discharge Diagnosis: Coronary artery disease involving takotna coronary artery of takotna heart with unstable angina pectoris ([facility]) Admission Diagnosis: Chest pain [R07.9] Hospital course: 42 y.o. female who came from home with NSTEMI. This is a 42-year-old female with a medical history including CABG, hypertension, hyperlipidemia, spinal stenosis, polycystic ovary, chronic migraines, a history of cocaine use, a history of cigarette smoking, and degenerative disc disease with spinal stenosis. The patient was transferred from [facility] for concerns of managed stable angina [...] Center 09/08/2023 11:00 AM Sylvia Degroot MD [facility] Your medication list START taking these [...] Your Medications These medications were sent to [facility]/pharmacy #[id number] [facility], [address] [place] [id number] atorvastatin 40 mg tablet clopidogrel 75 mg [...] and documentation was 30 minutes. Signed Robinson Reynaga MD Hospital Medicine 08/18/2023 10:38 AM [facility] 08-17-2023 Note Patient: Travis mac Procedure Information Date/Time: 08/17/23 1530 Procedure: Left heart cath [facility] [facility] (Cath) Providers: Santos Rodney MD [...] Plan discussed with attending. Additional Equipment Requests [facility] 08-17-2023 Note 08/17/23 1133 Admission Assessment [...] Discharge? No Does the patient have a caseworker assigned to them through their insurance? No [...] Yes Plan to return home with . [facility] 08-17-2023 Note Hospital Medicine Daily Progress Note - 08/17/2023 11:08 AM; Room: [address] [place] [address] Admission: 08/16/2023 10:23 PM; Length of stay: 1 days THE HOSPITALIST TEAM PREFERS TO USE INAPPIN CHAT FOR COMMUNICATION 7AM-7PM. IF I DO NOT RESPOND WITHIN 15 MINUTES, PLEASE PAGE ME/CALL THROUGH THE HVAC R TECH. FROM 7PM-7AM, PLEASE PAGE [phone](COVR) Code Status: Full Code Barriers to Discharge: [...] [employer] Dietetics and the [place] [employer] Enteral [employer] Parenteral Nutrition, meets [...] 0-28 Units/kg/hr, Last Rate: 15 Units/kg/hr (08/16/23 0778) Pertinent Investigations Hematology: Results from last 7 [...] LDL 114 08/16/2023 No results found for: [id number] , IRON , TIBC , C3 , C4 , TUSHAR , CANCA , ASO , PSA , CEA , CA125 , CA199 , AFP , CA153 Imaging ECG 12 lead Normal sinus rhythm Normal ECG When compared with ECG of 01-MAR-2012 13:42, T wave inversion no longer evident in Anterior leads Discharge Planning Signed Robinson Reynaga MD [facility] 08/17/2023 11:08 AM [facility] 08-17-2023 Note . Hospital Medicine History and Physical 08/16/2023 11:10 PM THE HOSPITALIST TEAM PREFERS TO USE INAPPIN CHAT FOR COMMUNICATION 7AM-7PM. IF I DO NOT RESPOND WITHIN 15 MINUTES, PLEASE PAGE ME/CALL THROUGH THE HVAC R TECH. FROM 7PM-7AM, PLEASE PAGE [phone](COVR) Chief Complaint No chief complaint on file. [...] spinal stenosis. The patient was transferred from [facility] for concerns of managed stable angina [...] this hospital stay by a member of [facility]. Past Medical History History reviewed. [...] Not on f (more content not included)... [facility] Summary Purpose Family History No Family History Records FoundNo Family History Records FoundNo Family History Records Found Advance Directives No Advanced Directives Records FoundNo Advanced Directives Records FoundNo Advanced Directives Records Found Additional Source Comments INFORMATION SOURCE (unrecogn ized section and content) DATE CREATED AUTHOR 03/25/2018 Kirsten tate DATE CREATED AUTHOR AUTHOR'S ORGANIZ ATION 10/17/2021 [facility] DATE CREATED AUTHOR AUTHOR'S ORGANIZ ATION 11/14/2023 [facility] FOR RECORDS PERTAINING TO PATIENTS WHO ARE [...] BE BASED ON THE PRIMARY CLINICAL RECORDS. [facility] [employer] [facility]. provides no warranty or guarantee of the accuracy or completeness of information in this document.
[2023-12-06 15:15] LABS: Basophils Percent Auto 0.4 % (0.2-2.0); Eosinophils Absolute Auto 0.2 10^3/uL (0.0-0.7); Eosinophils Percent Auto 1.6 % (0.9-7.0); Hematocrit 41.4 % (36.0-48.0); Hemoglobin 13.1 g/dL (12.0-16.0); Immature Granulocytes Abs Auto 0.04 10^3/uL (0.00-0.03); Immature Granulocytes Pct Auto 0.4 % (0.0-0.5); Lymphocytes Absolute Auto 2.2 10^3/uL (1.2-3.8); Lymphocytes Percent Auto 20.6 % (20.5-60.0); Mean Corpuscular HGB Conc 31.6 g/dL (29.9-35.2); Mean Corpuscular Hemoglobin 29.5 pg (26.7-34.0); Mean Corpuscular Volume 93.2 fL (81.0-99.0); Mean Platelet Volume 9.7 fL (9.5-13.5); Monocytes Absolute Auto 0.7 10^3/uL (0.3-0.8); Monocytes Percent Auto 6.3 % (1.7-12.0); Neutrophils Absolute Auto 7.6 10^3/uL (1.4-6.5); Neutrophils Percent Auto 70.7 % (43.0-75.0); Platelet Count 322 10^3/uL (150-450); Red Blood Count 4.44 10^6/uL (4.20-5.40); Red Cell Distribution Width 14.6 % (11.0-15.0); White Blood Count 10.7 10^3/uL (4.0-11.0)
[2023-12-06 15:41] LABS: Alanine Aminotransferase 25 U/L (14-59); Albumin Globulin Ratio 0.9; Albumin Level 3.5 g/dL (3.4-5.0); Alkaline Phosphatase 83 U/L (46-116); Amylase 34 U/L (25-115); Anion Gap 14.9; Aspartate Amino Transferase 19 U/L (15-37); BUN Creatinine Ratio 18.5; Bilirubin Total 0.2 mg/dL (0.2-1.0); Calcium 8.7 mg/dL (8.5-10.1); Carbon Dioxide 23.1 mmol/L (21.0-32.0); Chloride 106 mmol/L (98-107); Estimated GFR (African America >60 (>=60); Estimated GFR (Non-African Ame >60 (>=60); Globulin 3.8 g/dL; Glucose 96 mg/dL (74-106); Sodium 140 mmol/L (136-145); Total Protein 7.3 g/dL (6.4-8.2)
[2023-12-06 16:09] LABS: Estimated Average Glucose 137 mg/dL; Glycohemoglobin A1C 6.4 % (4.5-6.2)
== END 2023-12-06 14:36 | disposition home or self-care (01) ==
LOC: LAB 14:36
PROVIDERS: PCP Family Medicine; Visit Provider Family Medicine
DX: E78.5 Hyperlipidemia, unspecified (principal); I25.10 Atherosclerotic heart disease of native coronary artery without angina pectoris; R10.11 Right upper quadrant pain; R73.09 Other abnormal glucose
CPT/HCPCS: 36415; 80053; 80061; 82150; 83036; 83690; 85025

== ENCOUNTER 2023-12-06 14:37 | Outpatient (OUT) | payer OTHER, SELFPAY ==
[2023-12-06 15:46] LABS: Chol HDL Ratio 2.4; Cholesterol 93 mg/dL (<=200); HDL Cholesterol 39 mg/dL (40-60); Triglycerides 80 mg/dL (<=150)
== END 2023-12-06 14:38 | disposition home or self-care (01) ==
LOC: LAB 14:38
PROVIDERS: PCP Family Medicine; Visit Provider Internal Medicine Interventional Cardiology
DX: E78.5 Hyperlipidemia, unspecified (principal); I25.10 Atherosclerotic heart disease of native coronary artery without angina pectoris
CPT/HCPCS: 36415; 80061

== ENCOUNTER 2024-03-19 12:03 | Outpatient (OUT) | payer OTHER, SELFPAY ==
--- OUTSIDE RECORDS SUMMARY | 2024-03-19 12:11 | XMS_ITS | CCD ---
Author Organization [facility] Care Team Providers Care Front End Technician Name Role Phone WILIAN COOK Unavailable Unavailable WILIAN COOK Unavailable Unavailable HORANI, ROBINSON Referring Unavailable MOUKARBEL, SANTOS Referring Unavailable MOUKARBEL, SANTOS Referring Unavailable ALGHOTHANISYLVIA Attending Unavailable MOUKARBEL, SANTOS Admitting Unavailable MOUKARBEL, SANTOS Attending Unavailable PAY, MARYAM Referring Unavailable HORANI, ROBINSON Attending Unavailable JANAE, JASON Admitting Unavailable MOUKARBEL, SANTOS Attending Unavailable HORANI, ROBINSON Referring Unavailable MERZA, NOORALDIN Referring Unavailable HORANI, ROBINSON Referring Unavailable MD Wilian Cook Primary Care Provider [phone] MD Wilian Cook Attending Provider Wilian Cook Attending Unavailable Wilian Cook Primary Care Unavailable Wilian Cook Admitting Unavailable Wilian Cook Admitting Unavailable Wilian Cook Attending Unavailable Wilian Cook Primary Care Unavailable Allergies Allergy Classification Reported Allergen(s) Allergy Type Date of Onset Reaction(s) Facility (1 source) haloperidol Drug Allergy [facility] Repository (1 source) levamisole Drug Allergy [facility] Repository (1 source) nalbuphine Drug Allergy [facility] Repository (1 source) risperiDONE Drug Allergy [facility] Repository (2 sources) Haloperidol; Translations: [HALOPERIDOL] Drug Allergy 03-10-2014 [facility] Repository (1 source) Isosorbide; Translations: [ISOSORBIDE MONONITRATE] Drug Allergy 03-10-2014 [facility] Repository (1 source) Nalbuphine; Translations: [NALBUPHINE] Drug Allergy 03-10-2014 [facility] Repository (1 source) risperiDONE; Translations: [RISPERIDONE] Drug Allergy 03-10-2014 [facility] Repository Medications Current Medications Medication Drug Class(es) Dates Sig (Normalized) Sig (Original) benzonatate 100 mg oral capsule (4 sources) Non-narcotic Antitussive Start: 08-02-2019 End: 07-11-2021 take 2 capsules by mouth three times daily Benzonatate (Tessalon Perles) 100 mg capsule Active 200 MG PO Three times daily July 11, 2021 12:00am predniSONE 50 mg oral tablet (2 sources) Start: 07-11-2021 take 50 mg by mouth once daily at mealtime Prednisone Active 50 MG PO Daily 01 06July 11, 2021 12:00am administer with food or milk Completed/Discontinued Medications Medication Drug Class(es) Dates Sig (Normalized) Sig (Original) acetaminophen 325 mg / HYDROcodone bitartrate 5 mg oral tablet (2 sources) Opioid Agonist Start: 06-05-2017 End: 11-01-2017 take 1 tablet by mouth every four hours Hydrocodone-Aceta minophen ([place]) 5-325 mg tablet Discontinued 1 TAB PO Q4H June 05, 2017 12:00am November 01, 2017 6:30pm amoxicillin 875 mg / clavulanate 125 mg oral tablet (2 sources) Penicillin-class Antibacterial Start: 08-02-2019 End: 07-11-2021 take 1 tablet by mouth twice daily Amoxicillin-Pot Clavulanate (Augmentin) 875-125 mg tablet Discontinued 1 TAB PO Twice daily 20 August 02, 2019 1:00am July 11, 2021 9:59am cephalexin 500 mg oral capsule (2 sources) Cephalosporin Antibacterial Start: 06-05-2017 End: 11-01-2017 take 1 capsule by mouth twice daily Cephalexin (Keflex) 500 mg capsule Discontinued 500 MG PO Twice daily 20 June 05, 2017 12:00am November 01, 2017 6:30pm 24 hr loratadine 10 mg / pseudoephedrine sulfate 240 mg extended release oral tablet (2 sources) alpha-Adrenergic Agonist Start: 08-02-2019 End: 07-11-2021 take 1 tablet by mouth once daily, then take 1 tablet by mouth every twenty-four hours Loratadine-Pseudo ephedrine (Loratadine-D) 10-240 mg tablet extended release 24 hr Discontinued 1 TAB PO Daily August 02, 2019 1:00am July 11, 2021 9:59am sulfamethoxazole 800 mg / trimethoprim 160 mg oral tablet (4 sources) Dihydrofolate Reductase Inhibitor Antibacterial, Sulfonamide Antimicrobial Start: 06-05-2017 End: 11-11-2017 take 1 tablet by mouth twice daily Sulfamethoxazole- Trimethoprim (Bactrim Ds) 800-160 mg tablet Discontinued 1 TAB PO Twice daily 23 06November 01, 2017 1:00am November 11, 2017 1:06am Problems Problem Classification Problem Date Documented Date Episodic/Chronic Abdominal pain (1 source) Right upper quadrant pain; Translations: [Right upper quadrant pain] Onset: 12-12-2023 Episodic Chronic obstructive pulmonary disease and bronchiectasis (2 sources) Bronchitis; Translations: [Bronchitis, not specified as acute or chronic] 08-16-2023 Episodic Coronary atherosclerosis and other heart disease (6 sources) Atherosclerotic heart disease of [place] coronary artery with other forms of angina pectoris; Translations: [Atherosclerotic heart disease of [place] coronary artery without angina pectoris] Onset: 09-08-2023 [...] Translations: [Shortness of breath] Onset: 11-06-2023 Episodic Other upper respiratory infections (2 sources) Sinusitis; Translations: [Chronic sinusitis, unspecified] 08-16-2023 Chronic Skin and subcutaneous tissue infections (2 sources) Abscess; Translations: [Cutaneous abscess, unspecified] 08-16-2023 Episodic Spondylosis; intervertebral disc disorders; other back problems (1 source) Radiculopathy, cervical region; Translations: [Radiculopathy, cervical region] Onset: 02-02-2024 Episodic Results Test Name Value Interpretation Reference Range Facility XR cerv spine AP/LAT/FLX/EXT on 02-02-2024 XR cerv spine AP/LAT/FLX/EXT [facility] Main [place] [address] [place], [place] [id number] XRay Report Signed Patient: Travis Rivas MR#: [id number] : 1980 Acct:[id number] Age/Sex: 43 / F ADM Date: 02/02/24 Loc: XD Room: Type: [facility] Attending Dr: Wilian Cook MD Copies to: Wilian Cook MD Ordering Provider: Wilian Cook MD Date of Service: 02/02/24 XR/XR cerv spine AP/LAT/FLX/EXT: M54.12 CERVICAL SPINE WITH FLEXION AND EXTENSION VIEWS -4 views: CLINICAL HISTORY: Left-sided neck pain radiating down the arm where there is numbness for the past 4 days. No injury. COMPARISON: None AP as well as lateral views in neutral, flexion and extension were obtained. C7 and the cervicothoracic junction are not well visualized on the lateral views. There is straightening of the normal cervical curvature. No acute fractures or displacement are seen. No instability is identified. There is disc space narrowing at C5-6. There are tiny endplate spurs. There are no prevertebral soft tissue swelling. XR/XR cerv spine AP/LAT/FLX/EXT IMPRESSION: LIMITED ASSESSMENT OF THE CERVICOTHORACIC JUNCTION. STRAIGHTENING OF THE NORMAL CERVICAL LORDOSIS. MILD DEGENERATIVE CHANGE. Impression dictated by: Amie Olvera M.D.02/02/2024 4:29 PM Dictation Location: [place] [address] Transcribed By: [facility] 02/02/24 1629 Dictated By: Amie Olvera MD 02/02/24 162 Signed By: 02/02/24 162 Normal [facility] US abdomen limitedon 024 US abdomen limited [facility] Main [address] [address] Ultrasound Report Signed Patient: Travis Rivas MR#: [id number] : 1980 Acct:[id number] Age/Sex: 43 / F ADM Date: 12/12/23 Loc: Room: Type: [facility] Attending Dr: Wilian Cook MD Ordering Provider: Wilian Cook MD Date of Service: 12/12/23 US/US abdomen limited: R10.11 Copies to: Wilian Cook MD LIMITED ABDOMINAL ULTRASOUND: CLINICAL HISTORY: Right upper quadrant abdominal pain COMPARISON: None TECHNIQUE: Grayscale and color Doppler images of the right upper quadrant organs were obtained. FINDINGS: Pancreas: Visualized portions appear unremarkable. Liver: Fatty infiltration. Gallbladder: Unremarkable. CBD: 4.5 mm US/US abdomen limited IMPRESSION: FATTY INFILTRATION OF THE LIVER. NO ACUTE FINDINGS.. Impression dictated by: Santy Jameson Jr., D.ODarrin12/12/2023 2:57 PM Dictation Location: [place] [address] Tech: Yady De Souza Transcribed By: DALIA 12/12/23 1457 Dictated By: Santy Jameson Jr, DO 12/12/23 1456 Signed By: 12/12/23 1457 Normal [facility] 36on 11-13-2023 36 Regarding lab result s [...] was faxed to her pharmacy per Dr. Cabrera. I asked her to have repeat lipids prior to her apt on 12/08/2023. Order faxed to [facility]. Normal [facility] Office Visiton 11-06-2023 Follow-up visit [id number] Travis Rivas 1980 F Date Provider Department Center 11/06/2023 Gia-SANTOS CABRERA TWYLA Kelly Family History Problem Relation Age of Onset Coronary artery disease Mother Brain Aneurysm Mother Lung cancer Father Family Status - Relation Status Age at Mother Father Level of Service:56278 ND OFFICE/OUTPATIENT ESTABLISHED MOD MDM 30 MIN Normal [facility] HPon 10-05-2023 HP -- Attestation signed by Santos Cabrera MD at 10/05/2023 8:31 AM I personally [...] intervention. Amanda Pathak MD Cardiovascular Medicine Fellow [facility] NURSNOTEon 10-05-2023 NURSNOTE RN educated pt on d/ c instructions. RN encouraged pt to voice any questions or concerns. Pt verbalizes no questions or concerns at this time. Pt was wheeled off of unit with all of belongings. [facility] Orders Onlyon 09-27-2023 Orders Only [id number] RickmicaTarvis lam 1980 F Date Provider Department Center 09/27/2023 Yared-TAI [facility] Family History Problem Relation Age of Onset Coronary artery disease Mother Brain Aneurysm Mother Lung cancer Father Family Status - Relation Status Age at Mother Father [facility] Office Visiton 09-08-2023 Follow-up visit [id number] RickmicacaroleTravis L 1980 F Date Provider Department Center 09/08/2023 3848-SYLVIA DEGROOT TWYLA [facility] Family History Problem Relation Age of Onset Coronary artery disease Mother Brain Aneurysm Mother Lung cancer Father Family Status - Relation Status Age at Mother Father Level of Service:35756 ND OFFICE/OUTPATIENT ESTABLISHED LOW MDM 20 MIN [facility] Orders Onlyon 09-08-2023 Orders Only [id number] RickmicacaroleTravis L 1980 F Date Provider Department Center 09/08/2023 895-TIAN MARY [facility] Family History Problem Relation Age of Onset Coronary artery disease Mother Brain Aneurysm Mother Lung cancer Father Family Status - Relation Status Age at Mother Father [facility] 30on 08-18-2023 30 Problem: Pain - Adul t Goal: Verbalizes/displays adequate comfort level or baseline comfort level Outcome: Progressing Flowsheets (Taken 08/18/2023 0811) Verbalizes/displays adequate comfort level or baseline comfort [...] and behaviors that affect risk of falls [place] fall precautions as indicated by assessment Educate [...] within normal limits Outcome: Progressing Flowsheets (Taken 08/18/2023 0855) Electrolytes maintained within normal limits: Monitor labs [...] for the shift include VSS; safety Normal [facility] BASIC METABOLIC PANELon 12 Anion gap [Moles/Vol] 9 mmol/L Normal 7-20 [facility] Comment on above: Performed By: #### L [id number] ####[facility] (BEAKER)[address] [facility] [place] [address] Calcium [Mass/Vol] 9.3 mg/dL Normal 8.6-10.3 [facility] Comment on above: Performed By: #### L [id number] ####[facility] (BEAKER)[address] [place] [place] [address] Chloride [Moles/Vol] 109 mmol/L High 98-107 [facility] Comment on above: Performed By: #### L [id number] ####[facility] (BEAKER)[address] [place] [address] CO2 [Moles/Vol] 22 mmol/L Normal 21-31 [facility] Comment on above: Performed By: #### L [id number] ####[facility] ([facility] [place] [address] Creatinine [Mass/Vol] 0.71 mg/dL Normal 0.60-1.20 [facility] Comment on above: Performed By: #### L [id number] ####[facility] ([facility])[address] [place] [address] GLOMERULAR FILTRATION RATE ML/MIN/1.73 SQ M.PREDICTED 108.8 mL/min/1.73m*2 Normal >60.0 [facility] Comment on above: Result Comment: The [facility]???s estimated glomerular filtration rate (eGFR) will no [...] individuals. Performed By: #### L [id number] ####[facility] ([facility])[address] [place] [address] Glucose [Mass/Vol] 100 mg/dL Normal 70-100 [facility] Comment on above: Performed By: #### L [id number] ####[facility] ([facility])[address] [place] [address] Potassium [Moles/Vol] 4.3 mmol/L Normal 3.5-5.1 [facility] Comment on above: Performed By: #### L [id number] ####[facility] ([facility] [place] [address] Sodium [Moles/Vol] 136 mmol/L Normal 136-145 [facility] Comment on above: Performed By: #### L [id number] ####[facility] ([facility])[address] [place] [address] Urea nitrogen [Mass/Vol] 15 mg/dL Normal 7-25 [facility] Comment on above: Performed By: #### L [id number] ####[facility] (BEAKER)[address] [address] UREA NITROGEN/CREATININE (MASS RATIO) IN SER/PLAS 21.1 Normal [facility] Comment on above: Performed By: #### L [id number] ####[facility] (BEAKER)[address] [place] [address] MAGNESIUMon 08-18-2023 Magnesium [Mass/Vol] 2.0 mg/dL Normal 1.9-2.7 [facility] Comment on above: Performed By: #### L [id number] ####[facility] (BEAKER)[address] [place] [address] 30on 08-17-2023 30 The patient is Moderately [...] acceptable level of pain Outcome: Progressing Normal [facility] 30 Daily Case Managemen t Update Multidisciplinary [...] Consultation Consultation and Management 08/16/23 2308 Normal [facility] 30 The patient is Moderately Stable - Low risk of patient condition declining or worsening The patient's goals for the shift include The clinical goals for the shift include stable vs Over the shift, the patient continued to make progress toward the following goals. Normal [facility] ANTI-XA (HEPARIN LEVEL)on HEPARIN UNFRACTIONATED (U/ML) IN PPP BY CHROMOGENIC METHOD 0.24 IU/mL Low 0.3-0.7 [facility] Comment on above: Order Comment: Check anti-Xa level every 6 hours while on heparin infusion, or per protocol. Result Comment: Jen roxaban and Apixaban will interfere with the anti Xa assay used to monitor UFH and LMWH. Performed By: #### L [id number] #### [facility] ([facility]) [address] [place] [address] HEPARIN UNFRACTIONATED (U/ML) IN PPP BY CHROMOGENIC METHOD 0.36 IU/mL Normal 0.3-0.7 [facility] Comment on above: Order Comment: Check anti-Xa level every 6 hours while on heparin infusion, or per protocol. Result Comment: Childwold roxaban and Apixaban will interfere with the anti Xa assay used to monitor UFH and LMWH. Performed By: #### L [id number] #### [facility] (BEAKER) [address] [place] [address] HEPARIN UNFRACTIONATED (U/ML) IN PPP BY CHROMOGENIC METHOD <0.10 Invalid Interpretation Code 0.3-0.7 [facility] Comment on above: Order Comment: Check anti-Xa level every 6 hours while on heparin infusion, or per protocol. Result Comment: Childwold roxaban and Apixaban will interfere with the anti Xa assay used to monitor UFH and LMWH. Performed By: #### L [id number] #### [facility] ([facility]) [address] [place] [address] APTTon 08-17-2023 ACTIVATED PARTIAL THROMBOPLASTIN TIME IN PPP BY COAGULATION ASSAY 28.5 Seconds Normal 25.0-35.0 [facility] Comment on above: Result Comment: Clin ical significance of the APTT is questionable in the presence of heparin. Performed By: #### L [id number] ####[facility] ([facility])[address] [address] B-TYPE NATRIURETIC PEPTIDEon 08-17-2023 Natriuretic peptide B (Bld) [Mass/Vol] 47 pg/mL Normal 0-100 [facility] Comment on above: Performed By: #### L [id number] #### [facility] ([facility]) [address] [place] [address] BLOOD CULTUREon 08-17-2023 Bacteria identified Cx Nom (Bld) No growth at 5 days Normal [facility] Comment on above: Order Comment: From a different site than #1. Performed By: #### L [id number] ####[facility] ([facility])[address] [place] [address] CBCon 08-17-2023 Erythrocyte distribution width (RBC) [Ratio] 14.6 % Normal 11.5-15.0 [facility] Comment on above: Performed By: #### L [id number] #### [facility] ([facility]) [address] [place] [address] ERYTHROCYTE MEAN CORPUSCULAR HEMOGLOBIN CONCENTRATION (G/DL) BY AUTOMATED 33.6 g/dL Normal 32.0-35.0 [facility] Comment on above: Performed By: #### L [id number] #### [facility] ([facility]) [address] [place] [address] Hematocrit (Bld) [Volume fraction] 39.9 % Normal 36.0-48.0 [facility] Comment on above: Performed By: #### L [id number] #### [facility] ([facility]) [address] [place] [address] Hemoglobin (Bld) [Mass/Vol] 13.4 g/dL Normal 12.0-15.0 [facility] Comment on above: Performed By: #### L [id number] #### [facility] ([facility]) [address] [place] [address] MCH (RBC) [Entitic mass] 30.8 pg Normal 27.0-33.0 [facility] Comment on above: Performed By: #### L [id number] #### [facility] ([facility]) [address] [place] [address] MCV (RBC) [Entitic vol] 91.7 fL Normal 82.0-98.0 [facility] Comment on above: Performed By: #### L [id number] #### [facility] ([facility]) [address] [place] [address] PLATELETS (10*3/UL) IN BLOOD AUTOMATED COUNT 244 10*3/uL Normal 150-400 [facility] Comment on above: Performed By: #### L [id number] #### [facility] ([facility]) [address] [place] [address] RBC (Bld) [#/Vol] 4.35 10*6/uL Normal 3.80-5.00 [facility] Comment on above: Performed By: #### L [id number] #### [facility] ([facility]) [address] [place] [address] WBC (Bld) [#/Vol] 11.03 10*3/uL High 4.00-10.60 [facility] Comment on above: Performed By: #### L [id number] #### [facility] ([facility]) [address] [place] [address] CBC WITH AUTO DIFFERENTIALon 08-17-2023 Basophils (Bld) [#/Vol] 0.06 10*3/uL Normal 0.00-0.20 [facility] Comment on above: Performed By: #### L [id number] #### [facility] ([facility] [address] [place] [address] Basophils/100 WBC (Bld) 0.6 % Normal 0.0-1.0 [facility] Comment on above: Performed By: #### L [id number] #### [facility] ([facility]) [address] [address] Eosinophils (Bld) [#/Vol] 0.14 10*3/uL Normal 0.00-0.50 [facility] Comment on above: Performed By: #### L [id number] #### [facility] ([facility]) [address] [address] Eosinophils/100 WBC (Bld) 1.3 % Normal 0.0-6.0 [facility] Comment on above: Performed By: #### L [id number] #### [facility] ([facility]) [address] [address] Erythrocyte distribution width (RBC) [Ratio] 14.6 % Normal 11.5-15.0 [facility] Comment on above: Performed By: #### L [id number] #### [facility] ([facility]) [address] [address] ERYTHROCYTE MEAN CORPUSCULAR HEMOGLOBIN CONCENTRATION (G/DL) BY AUTOMATED 33.5 g/dL Normal 32.0-35.0 [facility] Comment on above: Performed By: #### L [id number] #### [facility] ([facility]) [address] [address] Hematocrit (Bld) [Volume fraction] 40.3 % Normal 36.0-48.0 [facility] Comment on above: Performed By: #### L [id number] #### [facility] ([facility] [address] [address] Hemoglobin (Bld) [Mass/Vol] 13.5 g/dL Normal 12.0-15.0 [facility] Comment on above: Performed By: #### L [id number] #### [facility] ([facility]) [address] [address] Immature granulocytes (Bld) [#/Vol] 0.03 10*3/uL Normal 0.00-0.20 [facility] Comment on above: Performed By: #### L [id number] #### [facility] ([facility] [address] [facility] [place] [address] Immature granulocytes/100 WBC (Bld) 0.3 % Normal 0.0-1.0 [facility] Comment on above: Performed By: #### L [id number] #### [facility] ([facility]) [address] [place] [address] Lymphocytes (Bld) [#/Vol] 2.18 10*3/uL Normal 1.20-4.00 [facility] Comment on above: Performed By: #### L [id number] #### [facility] ([facility] [address] [address] Lymphocytes/100 WBC (Bld) 20.6 % Normal 20.0-45.0 [facility] Comment on above: Performed By: #### L [id number] #### [facility] (BEAKER) [address] [address] MCH (RBC) [Entitic mass] 30.7 pg Normal 27.0-33.0 [facility] Comment on above: Performed By: #### L [id number] #### [facility] (BEAKER) [address] [address] MCV (RBC) [Entitic vol] 91.6 fL Normal 82.0-98.0 [facility] Comment on above: Performed By: #### L [id number] #### [facility] (BEAKER) [address] [address] Monocytes (Bld) [#/Vol] 0.69 10*3/uL Normal 0.10-1.00 [facility] Comment on above: Performed By: #### L [id number] #### [facility] ([facility]) [address] [place] [address] Monocytes/100 WBC (Bld) 6.5 % Normal 5.0-12.0 [facility] Comment on above: Performed By: #### L [id number] #### [facility] ([facility]) [address] [place] [address] Neutrophils (Bld) [#/Vol] 7.49 10*3/uL Normal 1.60-7.60 [facility] Comment on above: Performed By: #### L [id number] #### [facility] ([facility]) [address] [place] [address] Neutrophils/100 WBC (Bld) 70.7 % Normal 40.0-72.0 [facility] Comment on above: Performed By: #### L [id number] #### [facility] ([facility]) [address] [address] NRBC (PER 100 WBCS) BY AUTOMATED COUNT 0.0 % Normal 0 [facility] Comment on above: Performed By: #### L [id number] #### [facility] ([facility]) [address] [place] [address] PLATELETS (10*3/UL) IN BLOOD AUTOMATED COUNT 238 10*3/uL Normal 150-400 [facility] [facility] Comment on above: Performed By: #### L [id number] #### [facility] ([facility]) [address] [place] [address] RBC (Bld) [#/Vol] 4.40 10*6/uL Normal 3.80-5.[address] [facility] Comment on above: Performed By: #### L [id number] #### [facility] [address] [place] [address] WBC (Bld) [#/Vol] 10.59 10*3/uL Normal 4.00-10.60 [facility] Comment on above: Performed By: #### L [id number] #### [facility] ([facility]) [address] [place] [address] COMPREHENSIVE METABOLIC PANE August 08-17-2023 Albumin [Mass/Vol] 4.1 g/dL Normal 3.5-5.7 [facility] Comment on above: Performed By: #### L [id number] #### [facility] ([facility]) [address] [place] [address] ALP [Catalytic activity/Vol] 69 U/L Normal 34-104 [facility] Comment on above: Performed By: #### L [id number] #### [facility] ([facility]) [address] [place] [address] ALT [Catalytic activity/Vol] 16 U/L Normal 7-52 [facility] Comment on above: Performed By: #### L [id number] #### [facility] ([facility]) [address] [place] [address] Anion gap [Moles/Vol] 13 mmol/L Normal 7-20 [facility] Comment on above: Performed By: #### L [id number] #### [facility] ([facility]) [address] [place] [address] AST [Catalytic activity/Vol] 13 U/L Normal 13-39 [facility] Comment on above: Performed By: #### L [id number] #### [facility] ([facility]) [address] [place] [address] Bilirubin [Mass/Vol] 0.3 mg/dL Normal 0.3-1.0 [facility] Comment on above: Performed By: #### L [id number] #### [facility] ([facility]) [address] [place] [address] Calcium [Mass/Vol] 8.9 mg/dL Normal 8.6-10.3 [facility] Comment on above: Performed By: #### L [id number] #### [facility] ([facility]) [address] [place] [address] Chloride [Moles/Vol] 109 mmol/L High 98-107 [facility] Comment on above: Performed By: #### L [id number] #### [facility] ([facility]) [address] [place] [address] CO2 [Moles/Vol] 18 mmol/L Low 21-31 [facility] Comment on above: Performed By: #### L [id number] #### [facility] ([facility]) [address] [address] Creatinine [Mass/Vol] 0.66 mg/dL Normal 0.60-1.20 [facility] Comment on above: Performed By: #### L [id number] #### [facility] ([facility]) [address] [place] [address] GLOMERULAR FILTRATION RATE ML/MIN/1.73 SQ M.PREDICTED 112.2 mL/min/1.73m*2 Normal >60.0 [facility] Comment on above: Result Comment: The [facility]???s estimated glomerular filtration rate (eGFR) will no [...] individuals. Performed By: #### L [id number] #### [facility] ([facility]) [address] [place] [address] Glucose [Mass/Vol] 98 mg/dL Normal 70-100 [facility] Comment on above: Performed By: #### L [id number] #### [facility] ([facility]) [address] [place] [address] Potassium [Moles/Vol] 3.8 mmol/L Normal 3.5-5.1 [facility] Comment on above: Performed By: #### L [id number] #### [facility] [address] [place] [address] Protein [Mass/Vol] 6.7 g/dL Normal 6.0-8.3 [facility] Comment on above: Performed By: #### L [id number] #### [facility] ([facility]) [address] [place] [address] Sodium [Moles/Vol] 136 mmol/L Normal 136-145 [facility] Comment on above: Performed By: #### L [id number] #### [facility] ([facility]) [address] [place] [address] Urea nitrogen [Mass/Vol] 14 mg/dL Normal 7-25 [facility] Comment on above: Performed By: #### L [id number] #### [facility] ([facility]) [address] [place] [address] UREA NITROGEN/CREATININE (MASS RATIO) IN SER/PLAS 21.2 Normal [facility] Comment on above: Performed By: #### L [id number] #### [facility] ([facility]) [address] [place] [address] CONSULTon 08-17-2023 CONSULT Inpatient consult to Cardiothoracic Surgery Consult performed by: Semaj Bull NP Consult ordered by: Santos Cabrera MD Reason for consult: Redo CABG, Multivessel CAD History Of Present Illness Travis Rivas is a 42 y.o. female with a past medical history including CABG x 1 (NIETO-LAD), hypertension, hyperlipidemia, spinal stenosis, polycystic ovary, chronic migraines, hx of cocaine use, hx of cigarette smoking, and degenerative disc disease with spinal stenosis. She was transferred from [facility] for concerns of managed stable angina and [...] CABG. 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 Cabrera and Dr. Flynn. Patient on cath table, [...] 1 1 [facility] Heart Station [address] [place] [address] [phone] (fax) Echocardiogram-[facility] Name: TRAVIS RIVAS Study Date: 08/17/2023 12:45 PM B/P: 128 mmHg/90 mmHg HR: 64 bpm Date of : 1980 Location: [facility] Height: 66 in. Age: 42 year(s) [...] motion abnorma (more content not included)... Normal [facility] CONSULT -- Attestation signed by David Bee [...] the emergency room as a transfer from [facility] with concern for stable angina in the [...] ordered upon transfer. Patient saw cardiology at [facility] on 03/2014 but this was last [...] flat. Palp (more content not included)... Normal [facility] HEMOGLOBIN A1Con 08-17-2023 Glucose [Mass/Vol] 117 mg/dL Normal [facility] Comment on above: Performed By: #### L [id number] ####[facility] (BEAKER)[address] [place] [address] HbA1c (Bld) [Mass fraction] 5.7 % Normal 4.0-6.0 [facility] Comment on above: Performed By: #### L [id number] ####[facility] (BEAKER)[address] [place] [address] HPon 08-17-2023 HP H&P reviewed. The patient was examined and there are no changes to the H&P. 42 y.o. female who presented the emergency room as a transfer from [facility] with concern for stable angina in the [...] for patency of previously placed graft. Normal [facility] LACTIC ACID WITH 4 HOUR REFL EXon 08-17-2023 LACTATE (MMOL/L) IN SER/PLAS 1.2 mmol/L Normal 0.5-2.2 [facility] Comment on above: Performed By: #### L [id number] #### [facility] ([facility]ER) [address] [place] [address] LIPID PANELon 08-17-2023 CHOL/HDL 4.4 mg/dL Normal [facility] Comment on above: Performed By: #### L [id number] #### [facility] [address] [place] [address] Cholesterol [Mass/Vol] 148 mg/dL Normal 120-200 [facility] Comment on above: Performed By: #### L [id number] #### [facility] ([facility] [address] [place] [address] Magnesium [Mass/Vol] 119 mg/dL Normal 40-149 [facility] Comment on above: Result Comment: TRIG LYCERIDE REFERENCE RANGE: 20 YEARS AND OLDER CARDIOVASCULAR RISK LESS THAN 150 mg/dL LOW RISK 150 TO 199 mg/dL BORDERLINE RISK 200 mg/dL AND GREATER HIGH RISK Performed By: #### L [id number] #### [facility] [address] [place] [address] Magnesium [Mass/Vol] 90 mg/dL Normal 0-160 [facility] Comment on above: Performed By: #### L [id number] #### [facility] (BEAKER) [address] [place] [address] Magnesium [Mass/Vol] 34 mg/dL Normal 23-92 [facility] Comment on above: Performed By: #### L [id number] #### [facility] ([facility]) [address] [place] [address] NON HDL CHOL. (LDL+VLDL) 114 Normal [facility] Comment on above: Performed By: #### L [id number] #### [facility] (BEAKER) [address] [place] [address] TOTAL VLDL-C 24 mg/dL Normal 0-40 [facility] Comment on above: Performed By: #### L [id number] #### [facility] ([employer]) [address] [place] [address] MAGNESIUMon 08-17-2023 Magnesium [Mass/Vol] 1.7 mg/dL Low 1.9-2.7 [facility] Comment on above: Performed By: #### L [id number] ####[facility] (Standardized Safety)[address] [facility] [address] PHOSPHORUSon 08-17-2023 Magnesium [Mass/Vol] 3.4 mg/dL Normal 2.5-5.0 [facility] Comment on above: Performed By: #### L [id number] #### [facility] ([facility]) [address] [address] PROTIME-INRon 08-17-2023 INR IN PPP BY COAGULATION ASSAY 1.00 Normal 0.90-1.10 [facility] Comment on above: Result Comment: ACCC P [...] Performed By: #### L [id number] #### [facility] ([employer]) [address] [address] PROTHROMBIN TIME (PT) IN PPP BY COAGULATION ASSAY 13.2 Seconds Normal 12.3-14.8 [facility] Comment on above: Performed By: #### L [id number] #### [facility] ([facility]) [address] [place] [address] TOXICOLOGY PANEL URINEon AMPHETAMINE+METHAMP HETAMINE SCREEN (PRESENCE) IN URINE Negative Normal Negative [facility] Comment on above: Performed By: #### L [id number] #### [facility] ([facility]) [address] [place] [address] BARBITURATES PRESENCE IN URINE BY SCREEN METHOD Negative Normal Negative [facility] Comment on above: Performed By: #### L [id number] #### [facility] ([facility]) [address] [place] [address] Benzodiazepines Ql (U) Negative Normal Negative [facility] Comment on above: Performed By: #### L [id number] #### [facility] ([facility]) [address] [place] [address] CANNABINOID (PRESENCE) IN URINE BY SCREEN METHOD Positive Abnormal Negative [facility] Comment on above: Performed By: #### L [id number] #### [facility] ([facility]) [address] [place] [address] Cocaine Ql (U) Negative Normal Negative [facility] Comment on above: Performed By: #### L [id number] #### [facility] ([facility]) [address] [place] [address] METHADONE (PRESENCE) IN URINE BY SCREEN METHOD Negative Normal Negative [facility] Comment on above: Performed By: #### L [id number] #### [facility] ([facility]) [address] [place] [address] OPIATES (PRESENCE) IN URINE BY SCREEN METHOD Negative Normal Negative [facility] Comment on above: Performed By: #### L [id number] #### [facility] ([facility]) [address] [place] [address] PHENCYCLIDINE PRESENCE IN URINE BY SCREEN METHOD Negative Normal Negative [facility] Comment on above: Performed By: #### L [id number] #### [facility] ([facility]) [address] [place] [address] Propoxyphene Screen Ql (U) Negative Normal Negative [facility] Comment on above: Performed By: #### L [id number] #### [facility] ([facility]) [address] [place] [address] TRICYCLIC ANTIDEPRESSANTS (PRESENCE) IN URINE Negative Normal Negative [facility] Comment on above: Performed By: #### L [id number] #### [facility] ([facility]) [address] [place] [address] TROPONIN Ion 08-17-2023 Troponin I.cardiac [Mass/Vol] 0.00 ng/mL Normal 0.00-0.04 [facility] Comment on above: Performed By: #### L [id number] ####[facility] ([facility])[address] [place] [address] Troponin I.cardiac [Mass/Vol] 0.01 ng/mL Normal 0.00-0.04 [facility] Comment on above: Performed By: #### L [id number] #### [facility] ([facility]) [address] [place] [address] Troponin I.cardiac [Mass/Vol] 0.04 ng/mL Normal 0.00-0.04 [facility] Comment on above: Performed By: #### L [id number] #### [facility] ([facility]) [address] [place] [address] TSH3 REFLEX TO FT4on 023 THYROTROPIN (MIU/L) IN SER/PLAS BY DETECTION LIMIT <= 0.05 MIU/L 2.69 mIU/L Normal 0.34-5.60 [facility] Comment on above: Performed By: #### L [id number] #### [facility] ([facility]) [address] [place] [address] URINALYSIS WITH REFLEX CULTU REon 08-17-2023 BILIRUBIN, TOTAL PRESENCE IN URINE Negative Normal Negative [facility] Comment on above: Order Comment: Micro scopics not performed on urines with negative chemical reactions unless requested on original order. Performed By: #### L [id number] #### [facility] ([facility]) [address] [address] Clarity (U) Clear Normal Clear [facility] Comment on above: Order Comment: Micro scopics not performed on urines with negative chemical reactions unless requested on original order. Performed By: #### L [id number] #### [facility] ([facility]) [address] [address] Color (U) Yellow Normal Yellow [facility] Comment on above: Order Comment: Micro scopics not performed on urines with negative chemical reactions unless requested on original order. Performed By: #### L [id number] #### [facility] ([facility]) [address] [address] Glucose (U) [Mass/Vol] Negative Normal Negative [facility] Comment on above: Order Comment: Micro scopics not performed on urines with negative chemical reactions unless requested on original order. Performed By: #### L [id number] #### [facility] ([facility]) [address] [address] HEMOGLOBIN PRESENCE IN URINE Negative Normal Negative [facility] Comment on above: Order Comment: Micro scopics not performed on urines with negative chemical reactions unless requested on original order. Performed By: #### L [id number] #### [facility] ([facility]) [address] [address] Ketones Ql (U) Negative Normal Negative [facility] Comment on above: Order Comment: Micro scopics not performed on urines with negative chemical reactions unless requested on original order. Performed By: #### L [id number] #### [facility] ([facility]) [address] [address] LEUKOCYTE ESTERASE PRESENCE IN URINE BY TEST STRIP Negative Normal Negative [facility] Comment on above: Order Comment: Micro scopics not performed on urines with negative chemical reactions unless requested on original order. Performed By: #### L [id number] #### [facility] (BEAKER) [address] [place] [address] NITRITE PRESENCE IN URINE Negative Normal Negative [facility] Comment on above: Order Comment: Micro scopics not performed on urines with negative chemical reactions unless requested on original order. Performed By: #### L [id number] #### [facility] ([facility]AKER) [address] [place] [address] pH (U) 5.0 [pH] Normal 5.0-8.0 [facility] Comment on above: Order Comment: Micro scopics not performed on urines with negative chemical reactions unless requested on original order. Performed By: #### L [id number] #### [facility] [address] [address] Protein (U) [Mass/Vol] Negative Normal Negative [facility] Comment on above: Order Comment: Micro scopics not performed on urines with negative chemical reactions unless requested on original order. Performed By: #### L [id number] #### [facility] [address] [place] [address] Specific gravity (U) [Rel density] 1.024 High 1.015-1.020 [facility] Comment on above: Order Comment: Micro scopics not performed on urines with negative chemical reactions unless requested on original order. Performed By: #### L [id number] #### [facility] ([facility]) [address] [place] [address] Encounters Encounter Date Encounter Type Care Provider Facility Start: 02-02-2024 End: 02-02-2024 Patient encounter procedure MD Wilian Cook Work Phone: [facility] Work Phone: Start: 02-02-2024 End: 02-02-2024 ambulatory MD Wilian Cook Work Phone: [facility] Work Phone: Start: 12-12-2023 End: 12-12-2023 Patient encounter procedure MD Wilian Cook Work Phone: [facility] [place] Work Phone: Start: 12-12-2023 End: 12-12-2023 ambulatory MD Wilian Cook Work Phone: [facility] Work Phone: Start: 11-06-2023 End: 11-06-2023 ambulatory [facility] Start: 10-05-2023 ambulatory [facility] Start: 10-05-2023 End: 10-05-2023 ambulatory [facility] Start: 09-08-2023 End: 09[facility]08[facility] Start: 08-17-2023 Evaluation and management of inpatient [facility] Start: 08-17-2023 Evaluation and management of inpatient [facility] Start: 08-17-2023 Evaluation and management of inpatient [facility] Start: 08-17-2023 End: 08-18-2023 Evaluation and management of inpatient [facility] Start: 03-24-2018 Patient encounter WILIAN Gill ity:H1 Procedures Date Procedure Procedure Detail Performing Clinician Start: 02-02-2024 X-ray of cervical spine MD Wilian Cook Work Phone: Start: 12-12-2023 Ultrasonography of abdomen MD Wilian oCok Work Phone: Payers Date Payer Category Payer Self-pay [id number] 2022 Unknown [id number] 1959 Self-pay [id number] Medicaid [facility] [id number] be Medicaid [facility] 102 [id number] Unknown [id number] Unknown [id number] Social History Date Type Detail Facility Start: 07-11-2021 Tobacco smoking stat NHIS Smoker (finding) Start: 1980 Sex Assigned At Female F [facility] Clinical Notes 08-17-2023 to 11-06-2023 Note Date & Type Note Facility 11-06-2023 Note [facility] Subjective Travis Rivas is a 43 y.o. year old female patient being seen for follow up PCI RCA performed on 10/05/2023. She is getting SOB with minimal exertion. Says she was sent home from work the other day for this. Denies chest pain but gets a weird sensation . Patient Active Problem List Diagnosis ??? Chest pain ??? Coronary artery disease involving mille lacs coronary artery of mil[place] lacs heart with unstable angina pectoris (CMS/HCC) ??? [...] or chew., D (more content not included)... [facility] 10-05-2023 Note Patient: Travsi mac Procedure Information Date/Time: 10/05/23 0830 Procedure: Percutaneous coronary intervention (Left) Location: [facility] 3 / [facility] (Cath) Providers: Santos Cabrera MD Clinical information reviewed: Tobacco Allergies Problems [...] Plan discussed with fellow. Additional Equipment Requests [facility] 09-08-2023 Note nisa [facility] 09-08-2023 Note Cardiology Follow Up Progress [...] Value Ventricular Rate 67 Atrial Rate 67 ND Interval 168 QRS DURATION 86 QT Interval 408 QTC CALCULATION(BAZETT) 431 P [place] 49 R-[place] 77 T Wave [place] 67 Impression Normal sinus rhythm T wave abnormality, consider anterior ischemia Abnormal ECG When compared with ECG of 05-OCT-2023 07:15, No significant change was found Confirmed by Darrin MONTANO, L.S. (2) on 10/05/2023 11:09:31 AM Echo results: Complete Echo (TTE) w/wo Imaging Agent, Strain, 3D, Bubble Study Result Date: 08/17/2023 1 1 [facility] Heart Station [address] [place] [address] [phone] (fax) Echocardiogram-[facility] Name: TRAVIS RIVAS Study Date: 08/17/2023 12:45 PM B/P: 128 mmHg/90 mmHg HR: 64 bpm Date of : 1980 Location: [facility] Height: 66 in. Age: 42 year(s) Patient Room: 3122 Weight: 223 lb. Gender: Female Patient Status: InPt BSA: 2.09 m2 Indication: Chest Pain, CAD, H/O CABG, Smoker Examination: Echocardiogram (Complete), Lumason Contrast Patient Consent: Procedure explained to patient Exam Details Contrast: I.V. dose of Lumason Conclusions Left Ventricle: The left ventric (more content not included)... [facility] 09-08-2023 Note Patient here for [facility] and PCI. Still has some pressure in her chest. She's feeling much better though. Plan is for staged intervention. Review of Systems Cardiovascular: Positive for chest pain ( pressure ) and palpitations ( 1 or 2 once in awhile ). Respiratory: Positive for cough (improving). All other systems reviewed and are negative. [facility] 08-18-2023 Note Discharge education completed with patient at bedside; verbalized understanding. Copy of signed AVS placed in paper chart. Prescriptions sent electronically to requested pharmacy. Cartridge Loading Operator RN escorted patient to main entrance lobby. [facility] 08-18-2023 Note [facility] CARDIOLOGY INPAT IENT PROGRESS [...] Temp Temp src Pulse Resp SpO2 Weight 12/15/23 0855 126/77 -- -- 65 11 97 [...] Value Ventricular Rate 56 Atrial Rate 56 ND Interval 152 QRS DURATION 88 QT Interval 452 QTC CALCULATION(BAZETT) 436 P [place] 35 R-[place] 85 T Wave [place] 79 Impression Sinus bradycardia Nonspecific ST abnormality Abnormal ECG When compared with ECG of 17-AUG-2023 09:14, No significant change was found Confirmed by Ector Paniagua (80) on 08/18/2023 8:48:38 AM 08/17/23 [facility] with NIETO to LAD patent; 90% [...] anterior descending: This (more content not included)... [facility] 08-18-2023 Note Hospital Medicine Discharge Summary Final Discharge Diagnosis: Coronary artery disease involving mil[place] lacs coronary artery of [place] heart with unstable angina pectoris [facility] Admission Diagnosis: Chest pain [R07.9] Hospital course: 42 y.o. female who came from home with NSTEMI. This is a 42-year-old female with a medical history including CABG, hypertension, hyperlipidemia, spinal stenosis, polycystic ovary, chronic migraines, a history of cocaine use, a history of cigarette smoking, and degenerative disc disease with spinal stenosis. The patient was transferred from [facility] for concerns of managed stable angina and [...] Center 09/08/2023 11:00 AM Sylvia Degroot MD [facility] Home Hos Your medication list START taking these [...] Your Medications These medications were sent to [facility]/pharmacy #[id number] [facility] [place] [id number] [facility] AT CORNER OF [address] [address] atorvastatin 40 mg tablet clopidogrel 75 mg [...] Reynaga MD Hospital Medicine 08/18/2023 10:38 AM [facility] 08-17-2023 Note Patient: Travis mac Procedure Information Date/Time: 08/17/23 1530 Procedure: Left heart cath Location: [facility] / [facility] (Cath) Providers: Santos Cabrera MD Clinical information reviewed: Tobacco Allergies Meds [...] Plan discussed with attending. Additional Equipment Requests [facility] 08-17-2023 Note 08/17/23 1133 Admission Assessment Questions [...] Discharge? No Does the patient have a business case analyst assigned to them through their insurance? No [...] Yes Plan to return home with . [facility] 08-17-2023 Note Hospital Medicine Daily Progress Note - 08/17/2023 11:08 AM; Room: [address] [place] [address] Admission: 08/16/2023 10:23 PM; Length of stay: 1 days THE HOSPITALIST TEAM PREFERS TO USE [employer] CHAT FOR COMMUNICATION 7AM-7PM. IF I DO NOT RESPOND WITHIN 15 MINUTES, PLEASE PAGE ME/CALL THROUGH THE FINAL INSPECTOR PAPER. FROM 7PM-7AM, PLEASE PAGE [phone](COVR) Code Status: Full Code Barriers to Discharge: [...] Academy of [employer] Dietetics and the [place] [employer] Enteral and Parenteral Nutrition, meets [...] 0-28 Units/kg/hr, Last Rate: 15 Units/kg/hr (08/16/23 6243) Pertinent Investigations Hematology: Results from last 7 [...] LDL 114 08/16/2023 No results found for: SLTUNQXC36 , IRON , TIBC , C3 , C4 , TUSHAR , CANCA , ASO , PSA , CEA , CA125 , CA199 , AFP , CA153 Imaging ECG 12 lead Normal sinus rhythm Normal ECG When compared with ECG of 01-MAR-2012 13:42, T wave inversion no longer evident in Anterior leads Discharge Planning Signed Robinson Reynaga MD [facility] Medicine 08/17/2023 11:08 AM [facility] 08-17-2023 Note . Hospital Medicine History and Physical 08/16/2023 11:10 PM THE HOSPITALIST TEAM PREFERS TO USE [employer] CHAT FOR COMMUNICATION 7AM-7PM. IF I DO NOT RESPOND WITHIN 15 MINUTES, PLEASE PAGE ME/CALL THROUGH THE FINAL INSPECTOR PAPER. FROM 7PM-7AM, PLEASE PAGE [phone](COVR) Chief Complaint No chief complaint on file. [...] spinal stenosis. The patient was transferred from [facility] for concerns of managed stable angina and [...] this hospital stay by a member of [facility]. Past Medical History History reviewed. [...] Not on f (more content not included)... [facility] Evaluation note No assessment information availa [facility] Work Phone: Summary Purpose Family History No Family History Records FoundNo Family History Records FoundNo Family History Records Found Advance Directives No Advanced Directives Records Found Advance Directive Response Recorded Date/ Time Advance Directives No June 05, 2017 6:53pm Chief Complaint and Reason for Visit Chief Complaint R10.11 Chief Complaint R10.11 M54.12 Additional Source Comments INFORMATION SOURCE (unrecogn ized section and content) DATE CREATED AUTHOR 03/25/2018 [facility] DATE CREATED AUTHOR AUTHOR'S ORGANIZ ATION 11/14/2023 [facility] DATE CREATED AUTHOR AUTHOR'S ORGANIZ ATION 02/17/2024 [facility] Care Teams (unrecognized sec tion and content) Team Status: Active Member Role Status Dates Wilian Cook MD Primary Care Provider Active Team Status: Inactive Member Role Status Dates Wilian Cook MD Primary Care Provide r, Attending Provider Active Start: December 12, 2023 End: December 12, 2023 Team Status: Inactive Member Role Status Dates Wilian Cook MD Primary Care Provide r, Attending Provider Active Start: February 02, 2024 End: February 02, 2024 Goals (unrecognized section and content) Goals may be documented in a n alternate sectionGoals may be documented in an alternate section FOR RECORDS PERTAINING TO PATIENTS WHO ARE [...] BE BASED ON THE PRIMARY CLINICAL RECORDS. [employer] provides no warranty or guarantee of the accuracy or completeness of information in this document.
[2024-03-19 12:26] LABS: Basophils Absolute Auto 0.1 10^3/uL (0.0-0.1); Basophils Percent Auto 0.6 % (0.2-2.0); Eosinophils Absolute Auto 0.1 10^3/uL (0.0-0.7); Eosinophils Percent Auto 1.3 % (0.9-7.0); Hematocrit 43.4 % (36.0-48.0); Hemoglobin 13.7 g/dL (12.0-16.0); Immature Granulocytes Abs Auto 0.03 10^3/uL (0.00-0.03); Immature Granulocytes Pct Auto 0.3 % (0.0-0.5); Lymphocytes Absolute Auto 1.9 10^3/uL (1.2-3.8); Lymphocytes Percent Auto 19.5 % (20.5-60.0); Mean Corpuscular HGB Conc 31.6 g/dL (29.9-35.2); Mean Corpuscular Hemoglobin 28.1 pg (26.7-34.0); Mean Corpuscular Volume 89.1 fL (81.0-99.0); Mean Platelet Volume 9.8 fL (9.5-13.5); Monocytes Absolute Auto 0.6 10^3/uL (0.3-0.8); Monocytes Percent Auto 5.8 % (1.7-12.0); Neutrophils Percent Auto 72.5 % (43.0-75.0); Platelet Count 271 10^3/uL (150-450); Red Blood Count 4.87 10^6/uL (4.20-5.40); Red Cell Distribution Width 18.1 % (11.0-15.0); White Blood Count 9.6 10^3/uL (4.0-11.0)
[2024-03-19 12:49] LABS: Bilirubin Urine NEGATIVE (NEGATIVE); Blood Urine SMALL (NEGATIVE); Clarity Urine CLEAR (CLEAR); Color Urine LT. YELLOW (YELLOW); Glucose Urine UA NEGATIVE (NEGATIVE); Ketones Urine NEGATIVE (NEGATIVE); Leukocyte Esterase Urine NEGATIVE (NEGATIVE); Nitrite Urine NEGATIVE (NEGATIVE); Protein Urine NEGATIVE (NEG/TRACE); Specific Gravity Urine >=1.030 (1.005-1.025); Urobilinogen Urine 0.2 EU/dL (0.2-1.0); pH Urine 5.5 (5.0-9.0)
[2024-03-19 13:01] LABS: Bacteria Urine MODERATE #/HPF (NONE SEEN); Cast Seen? NONE SEEN #/LPF (NONE SEEN); Crystals Seen? None Seen #/HPF (None Seen); Mucus Urine TRACE (NONE SEEN); RBC Urine 0-2 #/HPF (0-2); Squamous Epithelial Cell Urine MODERATE #/LPF (NONE/RARE); WBC Urine 0-2 #/HPF (NONE SEEN)
[2024-03-19 16:08] LABS: Alanine Aminotransferase 31 U/L (14-59); Albumin Globulin Ratio 0.8; Albumin Level 3.4 g/dL (3.4-5.0); Alkaline Phosphatase 83 U/L (46-116); Anion Gap 10.8; Aspartate Amino Transferase 21 U/L (15-37); BUN Creatinine Ratio 20.3; Bilirubin Total 0.3 mg/dL (0.2-1.0); Calcium 8.9 mg/dL (8.5-10.1); Carbon Dioxide 26.7 mmol/L (21.0-32.0); Chloride 105 mmol/L (98-107); Estimated GFR (African America >60 (>=60); Estimated GFR (Non-African Ame >60 (>=60); Globulin 4.1 g/dL; Glucose 94 mg/dL (74-106); Potassium 4.5 mmol/L (3.5-5.1); Sodium 138 mmol/L (136-145); Thyroid Stimulating Hormone 1.301 uIU/mL (0.358-3.740); Total Protein 7.5 g/dL (6.4-8.2)
[2024-03-19 16:23] LABS: Free T4 0.91 ng/dL (0.76-1.46)
== END 2024-03-19 12:04 | disposition home or self-care (01) ==
LOC: LAB 12:04
PROVIDERS: PCP Family Medicine; Visit Provider Family Medicine
DX: R25.2 Cramp and spasm (principal); E03.9 Hypothyroidism, unspecified; I50.30 Unspecified diastolic (congestive) heart failure; N39.0 Urinary tract infection, site not specified; R35.0 Frequency of micturition; R53.83 Other fatigue; I11.0 Hypertensive heart disease with heart failure
CPT/HCPCS: 36415; 80053; 81001; 83880; 84439; 84443; 85025; 87086

== ENCOUNTER 2024-12-09 11:56 | Outpatient (OUT) | payer OTHER, SELFPAY ==
--- OUTSIDE RECORDS SUMMARY | 2024-12-09 12:18 | XMS_ITS | CCD ---
Author Organization [facility] Care Team Providers Care Environmental Director Name Role Phone WILIAN COOK Unavailable Unavailable [...] Unavailable MD Wilian Cook Primary Care Provider [phone] MD Wilian Cook Attending Provider Wilian Cook Attending Unavailable Wilian Cook Primary Care Unavailable Wilian Cook Admitting Unavailable Wilian Cook Admitting Unavailable Wilian Cook Attending Unavailable Wilian Cook Primary Care Unavailable Allergies Allergy Classification Reported Allergen(s) Allergy Type Date of Onset Reaction(s) Facility (1 source) haloperidol Drug Allergy [facility] Repository (1 source) levamisole Drug Allergy [facility] Repository (1 source) nalbuphine Drug Allergy [facility] Repository (1 source) risperiDONE Drug Allergy [facility] Repository (2 sources) Haloperidol; Translations: [HALOPERIDOL] Drug Allergy 03-10-2014 [facility] Repository (1 source) Isosorbide; Translations: [ISOSORBIDE MONONITRATE] Drug Allergy 03-10-2014 [facility] Repository (1 source) Nalbuphine; Translations: [NALBUPHINE] Drug Allergy 03-10-2014 [facility] Repository (1 source) risperiDONE; Translations: [RISPERIDONE] Drug Allergy 03-10-2014 [facility] Repository Medications Current Medications Medication [...] by mouth every four hours Hydrocodone-Aceta minophen (Randolph) 5-325 mg tablet Discontinued 1 TAB PO [...] disease (6 sources) Atherosclerotic heart disease of [place] coronary artery with other forms of angina pectoris; Translations: [Atherosclerotic heart disease of [place] coronary artery without angina pectoris] Onset: 09-08-2023 [...] AP/LAT/FLX/EXT on 02-02-2024 XR cerv spine AP/LAT/FLX/EXT [facility] Main [place] [address] [place], [place] [id number] XRay Report Signed Patient: Travis Rivas MR#: [id number] : 1980 Acct:[id number] Age/Sex: 43 / F ADM Date: 02/02/24 Loc: XD Room: Type: [facility] Attending Dr: Wilian Cook MD Copies to: [...] Amie Olvera M.D.02/02/2024 4:29 PM Dictation Location: [place] [address] Transcribed By: [facility] 02/02/24 1629 Dictated By: Amie Olvera MD 02/02/24 162 Signed By: 02/02/24 162 Normal [facility] US abdomen limitedon 024 US abdomen limited [facility] Main [address] [address] Ultrasound Report Signed Patient: Travis Rivas MR#: [id number] : 1980 Acct:[id number] Age/Sex: 43 / F ADM Date: 12/12/23 Loc: Room: Type: [facility] Attending Dr: Wilian Cook MD Ordering Provider: [...] Jameson Jr., D.ODarrin12/12/2023 2:57 PM Dictation Location: [place] [address] Tech: Yady De Souza Transcribed By: DALIA 12/12/23 1457 Dictated By: Santy Jameson Jr, DO 12/12/23 1456 Signed By: 12/12/23 1457 Normal [facility] 36on 11-13-2023 36 Regarding lab [...] her apt on 12/08/2023. Order faxed to [facility]. Normal [facility] Office Visiton 11-06-2023 Follow-up visit [id number] Travis Rivas 1980 F Date Provider Department Center 11/06/2023 Gia-SANTOS CABRERA TWYLA Kelly Family History Problem Relation Age of Onset Coronary artery disease Mother Brain Aneurysm Mother Lung cancer Father Family Status - Relation Status Age at Mother Father Level of Service:04414 NE OFFICE/OUTPATIENT ESTABLISHED MOD MDM 30 MIN Normal [facility] HPon 10-05-2023 HP -- Attestation [...] intervention. Amanda Pathak MD Cardiovascular Medicine Fellow [facility] NURSNOTEon 10-05-2023 NURSNOTE RN educated pt on d/ c instructions. RN encouraged pt to voice any questions or concerns. Pt verbalizes no questions or concerns at this time. Pt was wheeled off of unit with all of belongings. [facility] Orders Onlyon 09-27-2023 Orders Only [id number] RickmicaTravis lam 1980 F Date Provider Department Center 09/27/2023 Yared-TAI [facility] Family History Problem Relation Age of Onset Coronary artery disease Mother Brain Aneurysm Mother Lung cancer Father Family Status - Relation Status Age at Mother Father [facility] Office Visiton 09-08-2023 Follow-up visit [id number] RickmicacaroleTravis L 1980 F Date Provider Department Center 09/08/2023 3848-SYLVIA DEGROOT TWYLA [facility] Family History Problem Relation Age of Onset Coronary artery disease Mother Brain Aneurysm Mother Lung cancer Father Family Status - Relation Status Age at Mother Father Level of Service:13631 NE OFFICE/OUTPATIENT ESTABLISHED LOW MDM 20 MIN [facility] Orders Onlyon 09-08-2023 Orders Only [id number] RickmicacaroleTravis L 1980 F Date Provider Department Center 09/08/2023 895-TIAN MARY [facility] Family History Problem Relation Age of Onset Coronary artery disease Mother Brain Aneurysm Mother Lung cancer Father Family Status - Relation Status Age at Mother Father [facility] 30on 08-18-2023 30 Problem: Pain - Adul t Goal: Verbalizes/displays adequate comfort level or baseline comfort level Outcome: Progressing Flowsheets (Taken 08/18/2023 0870) Verbalizes/displays adequate comfort level or baseline comfort [...] and behaviors that affect risk of falls Jackson fall precautions as indicated by assessment Educate [...] for the shift include VSS; safety Normal [facility] BASIC METABOLIC PANELon 12 Anion gap [Moles/Vol] 9 mmol/L Normal 7-20 [facility] Comment on above: Performed By: #### L [id number] ####[facility] (BEAKER)[address] [facility] [place] [address] Calcium [Mass/Vol] 9.3 mg/dL Normal 8.6-10.3 [facility] Comment on above: Performed By: #### L [id number] ####[facility] (BEAKER)[address] [facility] [place] [address] Chloride [Moles/Vol] 109 mmol/L High 98-107 [facility] Comment on above: Performed By: #### L [id number] ####[facility] (BEAKER)[address] [facility] [place] [address] CO2 [Moles/Vol] 22 mmol/L Normal 21-31 [facility] Comment on above: Performed By: #### L [id number] ####[facility] [place] [place] [address] Creatinine [Mass/Vol] 0.71 mg/dL Normal 0.60-1.20 [facility] Comment on above: Performed By: #### L [id number] ####[facility] ([facility])[address] [place] [address] GLOMERULAR FILTRATION RATE ML/MIN/1.73 SQ M.PREDICTED 108.8 mL/min/1.73m*2 Normal >60.0 [facility] Comment on above: Result Comment: [facility]???s estimated glomerular filtration rate (eGFR) [...] of individuals. Performed By: #### L [id number] ####[facility] ([facility])[address] [place] [address] Glucose [Mass/Vol] 100 mg/dL Normal 70-100 [facility] Comment on above: Performed By: #### L [id number] ####[facility] ([facility])[address] [place] [address] Potassium [Moles/Vol] 4.3 mmol/L Normal 3.5-5.1 [facility] Comment on above: Performed By: #### L [id number] ####[facility] ([facility] [place] [address] Sodium [Moles/Vol] 136 mmol/L Normal 136-145 [facility] Comment on above: Performed By: #### L [id number] ####[facility] ([facility] [place] [place] [address] Urea nitrogen [Mass/Vol] 15 mg/dL Normal 7-25 [facility] Comment on above: Performed By: #### L [id number] ####[facility] (BEAKER)[address] [place] [address] UREA NITROGEN/CREATININE (MASS RATIO) IN SER/PLAS 21.1 Normal [facility] Comment on above: Performed By: #### L [id number] ####[facility] (BEAKER)[address] [address] MAGNESIUMon 08-18-2023 Magnesium [Mass/Vol] 2.0 mg/dL Normal 1.9-2.7 [facility] Comment on above: Performed By: #### L [id number] ####[facility] (BEAKER)[address] [facility] [place] [address] 30on 08-17-2023 30 The patient is Moderately [...] acceptable level of pain Outcome: Progressing Normal [facility] 30 Daily Case Managemen t [...] Consultation Consultation and Management 08/16/23 2308 Normal [facility] 30 The patient is Moderately Stable - Low risk of patient condition declining or worsening The patient's goals for the shift include The clinical goals for the shift include stable vs Over the shift, the patient continued to make progress toward the following goals. Normal [facility] ANTI-XA (HEPARIN LEVEL)on HEPARIN UNFRACTIONATED (U/ML) IN PPP BY CHROMOGENIC METHOD 0.24 IU/mL Low 0.3-0.7 [facility] Comment on above: Order Comment: Check anti-Xa level every 6 hours while on heparin infusion, or per protocol. Result Comment: [place] roxaban and Apixaban will interfere with the anti Xa assay used to monitor UFH and LMWH. Performed By: #### L [id number] #### [facility] ([facility]) [address] [place] [address] HEPARIN UNFRACTIONATED (U/ML) IN PPP BY CHROMOGENIC METHOD 0.36 IU/mL Normal 0.3-0.7 [facility] Comment on above: Order Comment: Check anti-Xa level every 6 hours while on heparin infusion, or per protocol. Result Comment: [place] roxaban and Apixaban will interfere with the anti Xa assay used to monitor UFH and LMWH. Performed By: #### L [id number] #### [facility] (BEAKER) [address] [place] [address] HEPARIN UNFRACTIONATED (U/ML) IN PPP BY CHROMOGENIC METHOD <0.10 Invalid Interpretation Code 0.3-0.7 [facility] Comment on above: Order Comment: Check anti-Xa level every 6 hours while on heparin infusion, or per protocol. Result Comment: [place] roxaban and Apixaban will interfere with the anti Xa assay used to monitor UFH and LMWH. Performed By: #### L [id number] #### [facility] ([facility]) [address] [place] [address] APTTon 08-17-2023 ACTIVATED PARTIAL THROMBOPLASTIN TIME IN PPP BY COAGULATION ASSAY 28.5 Seconds Normal 25.0-35.0 [facility] Comment on above: Result Comment: Clin ical significance of the APTT is questionable in the presence of heparin. Performed By: #### L [id number] ####[facility] ([facility])[address] [address] B-TYPE NATRIURETIC PEPTIDEon 08-17-2023 Natriuretic peptide B (Bld) [Mass/Vol] 47 pg/mL Normal 0-100 [facility] Comment on above: Performed By: #### L [id number] #### [facility] ([facility]) [address] [address] BLOOD CULTUREon 08-17-2023 Bacteria identified Cx Nom (Bld) No growth at 5 days Normal [facility] Comment on above: Order Comment: From a different site than #1. Performed By: #### L [id number] ####[facility] ([facility])[address] [place] [address] CBCon 08-17-2023 Erythrocyte distribution width (RBC) [Ratio] 14.6 % Normal 11.5-15.0 [facility] Comment on above: Performed By: #### L [id number] #### [facility] ([facility]) [address] [place] [address] ERYTHROCYTE MEAN CORPUSCULAR HEMOGLOBIN CONCENTRATION (G/DL) BY AUTOMATED 33.6 g/dL Normal 32.0-35.0 [facility] Comment on above: Performed By: #### L [id number] #### [facility] ([facility]) [address] [place] [address] Hematocrit (Bld) [Volume fraction] 39.9 % Normal 36.0-48.0 [facility] Comment on above: Performed By: #### L [id number] #### [facility] ([facility]) [address] [place] [address] Hemoglobin (Bld) [Mass/Vol] 13.4 g/dL Normal 12.0-15.0 [facility] Comment on above: Performed By: #### L [id number] #### [facility] ([facility]) [address] [place] [address] MCH (RBC) [Entitic mass] 30.8 pg Normal 27.0-33.0 [facility] Comment on above: Performed By: #### L [id number] #### [facility] ([facility]) [address] [place] [address] MCV (RBC) [Entitic vol] 91.7 fL Normal 82.0-98.0 [facility] Comment on above: Performed By: #### L [id number] #### [facility] ([facility]) [address] [place] [address] PLATELETS (10*3/UL) IN BLOOD AUTOMATED COUNT 244 10*3/uL Normal 150-400 [facility] Comment on above: Performed By: #### L [id number] #### [facility] ([facility]) [address] [address] RBC (Bld) [#/Vol] 4.35 10*6/uL Normal 3.80-5.00 [facility] Comment on above: Performed By: #### L [id number] #### [facility] ([facility]) [address] [place] [address] WBC (Bld) [#/Vol] 11.03 10*3/uL High 4.00-10.60 [facility] Comment on above: Performed By: #### L [id number] #### [facility] ([facility]) [address] [address] CBC WITH AUTO DIFFERENTIALon 08-17-2023 Basophils (Bld) [#/Vol] 0.06 10*3/uL Normal 0.00-0.20 [facility] Comment on above: Performed By: #### L [id number] #### [facility] [address] [place] [place] [address] Basophils/100 WBC (Bld) 0.6 % Normal 0.0-1.0 [facility] Comment on above: Performed By: #### L [id number] #### [facility] ([facility]) [address] [place] [address] Eosinophils (Bld) [#/Vol] 0.14 10*3/uL Normal 0.00-0.50 [facility] Comment on above: Performed By: #### L [id number] #### [facility] ([facility]) [address] [address] Eosinophils/100 WBC (Bld) 1.3 % Normal 0.0-6.0 [facility] Comment on above: Performed By: #### L [id number] #### [facility] ([facility]) [address] [address] Erythrocyte distribution width (RBC) [Ratio] 14.6 % Normal 11.5-15.0 [facility] Comment on above: Performed By: #### L [id number] #### [facility] ([facility]) [address] [place] [address] ERYTHROCYTE MEAN CORPUSCULAR HEMOGLOBIN CONCENTRATION (G/DL) BY AUTOMATED 33.5 g/dL Normal 32.0-35.0 [facility] Comment on above: Performed By: #### L [id number] #### [facility] [address] [address] Hematocrit (Bld) [Volume fraction] 40.3 % Normal 36.0-48.0 [facility] Comment on above: Performed By: #### L [id number] #### [facility] [address] [address] Hemoglobin (Bld) [Mass/Vol] 13.5 g/dL Normal 12.0-15.0 [facility] Comment on above: Performed By: #### L [id number] #### [facility] [address] [place] [address] Immature granulocytes (Bld) [#/Vol] 0.03 10*3/uL Normal 0.00-0.20 [facility] Comment on above: Performed By: #### L [id number] #### [facility] [address] [address] Immature granulocytes/100 WBC (Bld) 0.3 % Normal 0.0-1.0 [facility] Comment on above: Performed By: #### L [id number] #### [facility] ([facility]) [address] [place] [address] Lymphocytes (Bld) [#/Vol] 2.18 10*3/uL Normal 1.20-4.00 [facility] Comment on above: Performed By: #### L [id number] #### [facility] [address] [place] [address] Lymphocytes/100 WBC (Bld) 20.6 % Normal 20.0-45.0 [facility] Comment on above: Performed By: #### L [id number] #### [facility] (BEAKER) [address] [address] MCH (RBC) [Entitic mass] 30.7 pg Normal 27.0-33.0 [facility] Comment on above: Performed By: #### L [id number] #### [facility] ([facility]AKER) [address] [address] MCV (RBC) [Entitic vol] 91.6 fL Normal 82.0-98.0 [facility] Comment on above: Performed By: #### L [id number] #### [facility] (BEAKER) [address] [address] Monocytes (Bld) [#/Vol] 0.69 10*3/uL Normal 0.10-1.00 [facility] Comment on above: Performed By: #### L [id number] #### [facility] ([facility]) [address] [place] [address] Monocytes/100 WBC (Bld) 6.5 % Normal 5.0-12.0 [facility] Comment on above: Performed By: #### L [id number] #### [facility] ([facility]) [address] [place] [place] [address] Neutrophils (Bld) [#/Vol] 7.49 10*3/uL Normal 1.60-7.60 [facility] Comment on above: Performed By: #### L [id number] #### [facility] ([facility]) [address] [place] [address] Neutrophils/100 WBC (Bld) 70.7 % Normal 40.0-72.0 [facility] Comment on above: Performed By: #### L [id number] #### [facility] ([facility]) [address] [place] [address] NRBC (PER 100 WBCS) BY AUTOMATED COUNT 0.0 % Normal 0 [facility] Comment on above: Performed By: #### L [id number] #### [facility] ([facility]) [address] [place] [address] PLATELETS (10*3/UL) IN BLOOD AUTOMATED COUNT 238 10*3/uL Normal 150-400 [facility] Comment on above: Performed By: #### L [id number] #### [facility] ([facility]) [address] [place] [place] [address] RBC (Bld) [#/Vol] 4.40 10*6/uL Normal 3.80-5.00 [facility] Comment on above: Performed By: #### L [id number] #### [facility] [address] [place] [address] WBC (Bld) [#/Vol] 10.59 10*3/uL Normal 4.00-10.60 [facility] Comment on above: Performed By: #### L [id number] #### [facility] ([facility]) [address] [address] COMPREHENSIVE METABOLIC PANE August 08-17-2023 Albumin [Mass/Vol] 4.1 g/dL Normal 3.5-5.7 [facility] Comment on above: Performed By: #### L [id number] #### [facility] ([facility]) [address] [place] [address] ALP [Catalytic activity/Vol] 69 U/L Normal 34-104 [facility] Comment on above: Performed By: #### L [id number] #### [facility] ([facility]) [address] [place] [place] [address] ALT [Catalytic activity/Vol] 16 U/L Normal 7-52 [facility] Comment on above: Performed By: #### L [id number] #### [facility] ([facility]) [address] [place] [address] Anion gap [Moles/Vol] 13 mmol/L Normal 7-20 [facility] Comment on above: Performed By: #### L [id number] #### [facility] ([facility]) [address] [place] [address] AST [Catalytic activity/Vol] 13 U/L Normal 13-39 [facility] Comment on above: Performed By: #### L [id number] #### [facility] ([facility]) [address] [place] [address] Bilirubin [Mass/Vol] 0.3 mg/dL Normal 0.3-1.0 [facility] Comment on above: Performed By: #### L [id number] #### [facility] ([facility]) [address] [place] [address] Calcium [Mass/Vol] 8.9 mg/dL Normal 8.6-10.3 [facility] Comment on above: Performed By: #### L [id number] #### [facility] ([facility]) [address] [place] [address] Chloride [Moles/Vol] 109 mmol/L High 98-107 [facility] Comment on above: Performed By: #### L [id number] #### [facility] ([facility]) [address] [place] [address] CO2 [Moles/Vol] 18 mmol/L Low 21-31 [facility] Comment on above: Performed By: #### L [id number] #### [facility] ([facility]) [address] [address] Creatinine [Mass/Vol] 0.66 mg/dL Normal 0.60-1.20 [facility] Comment on above: Performed By: #### L [id number] #### [facility] ([facility]) [address] [address] GLOMERULAR FILTRATION RATE ML/MIN/1.73 SQ M.PREDICTED 112.2 mL/min/1.73m*2 Normal >60.0 [facility] Comment on above: Result Comment: [facility]???s estimated glomerular filtration rate (eGFR) [...] individuals. Performed By: #### L [id number] #### [facility] ([facility]) [address] [address] Glucose [Mass/Vol] 98 mg/dL Normal 70-100 [facility] Comment on above: Performed By: #### L [id number] #### [facility] ([facility]) [address] [address] Potassium [Moles/Vol] 3.8 mmol/L Normal 3.5-5.1 [facility] Comment on above: Performed By: #### L [id number] #### [facility] [address] [place] [address] Protein [Mass/Vol] 6.7 g/dL Normal 6.0-8.3 [facility] Comment on above: Performed By: #### L [id number] #### [facility] ([facility]) [address] [place] [address] Sodium [Moles/Vol] 136 mmol/L Normal 136-145 [facility] Comment on above: Performed By: #### L [id number] #### [facility] ([facility]) [address] [place] [address] Urea nitrogen [Mass/Vol] 14 mg/dL Normal 7-25 [facility] Comment on above: Performed By: #### L [id number] #### [facility] ([facility]) [address] [place] [address] UREA NITROGEN/CREATININE (MASS RATIO) IN SER/PLAS 21.2 Normal [facility] Comment on above: Performed By: #### L [id number] #### [facility] ([facility]) [address] [place] [address] CONSULTon 08-17-2023 CONSULT Inpatient consult to Cardiothoracic [...] with spinal stenosis. She was transferred from [facility] for concerns of managed stable angina and [...] CABG. 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 [place] [address] [phone] (fax) Echocardiogram-[facility] Name: TRAVIS RIVAS Study Date: 08/17/2023 12:45 PM B/P: 128 mmHg/90 mmHg HR: 64 bpm Date of : 1980 Location: [facility] Height: 66 in. Age: 42 year(s) Patient [...] motion abnorma (more content not included)... Normal [facility] CONSULT -- Attestation signed by [...] the emergency room as a transfer from [facility] with concern for stable angina in the [...] ordered upon transfer. Patient saw cardiology at [facility] on 03/2014 but this was last available [...] flat. Palp (more content not included)... Normal [facility] HEMOGLOBIN A1Con 08-17-2023 Glucose [Mass/Vol] 117 mg/dL Normal [facility] Comment on above: Performed By: #### L [id number] ####[facility] (BEAKER)[address] [place] [address] HbA1c (Bld) [Mass fraction] 5.7 % Normal 4.0-6.0 [facility] Comment on above: Performed By: #### L [id number] ####[facility] (BEAKER)[address] [place] [address] HPon 08-17-2023 HP H&P reviewed. The patient was examined and there are no changes to the H&P. 42 y.o. female who presented the emergency room as a transfer from [facility] with concern for stable angina in the [...] for patency of previously placed graft. Normal [facility] LACTIC ACID WITH 4 HOUR REFL EXon 08-17-2023 LACTATE (MMOL/L) IN SER/PLAS 1.2 mmol/L Normal 0.5-2.2 [facility] Comment on above: Performed By: #### L [id number] #### [facility] (BEAKER) [address] [place] [address] LIPID PANELon 08-17-2023 CHOL/HDL 4.4 mg/dL Normal [facility] Comment on above: Performed By: #### L [id number] #### [facility] [address] [place] [address] Cholesterol [Mass/Vol] 148 mg/dL Normal 120-200 [facility] Comment on above: Performed By: #### L [id number] #### [facility] [address] [place] [address] Magnesium [Mass/Vol] 119 mg/dL Normal 40-149 [facility] Comment on above: Result Comment: TRIG LYCERIDE REFERENCE RANGE: 20 YEARS AND OLDER CARDIOVASCULAR RISK LESS THAN 150 mg/dL LOW RISK 150 TO 199 mg/dL BORDERLINE RISK 200 mg/dL AND GREATER HIGH RISK Performed By: #### L [id number] #### [facility] [address] [place] [address] Magnesium [Mass/Vol] 90 mg/dL Normal 0-160 [facility] Comment on above: Performed By: #### L [id number] #### [facility] (BEAKER) [address] [place] [address] Magnesium [Mass/Vol] 34 mg/dL Normal 23-92 [facility] Comment on above: Performed By: #### L [id number] #### [facility] (BEAKER) [address] [place] [address] NON HDL CHOL. (LDL+VLDL) 114 Normal [facility] Comment on above: Performed By: #### L [id number] #### [facility] (BEAKER) [address] [place] [address] TOTAL VLDL-C 24 mg/dL Normal 0-40 [facility] Comment on above: Performed By: #### L [id number] #### [facility] ([employer]) [address] [place] [address] MAGNESIUMon 08-17-2023 Magnesium [Mass/Vol] 1.7 mg/dL Low 1.9-2.7 [facility] Comment on above: Performed By: #### L [id number] ####[facility] ([employer])[address] [facility] [address] PHOSPHORUSon 08-17-2023 Magnesium [Mass/Vol] 3.4 mg/dL Normal 2.5-5.0 [facility] Comment on above: Performed By: #### L [id number] #### [facility] ([facility]) [address] [address] PROTIME-INRon 08-17-2023 INR IN PPP BY COAGULATION ASSAY 1.00 Normal 0.90-1.10 [facility] Comment on above: Result Comment: [...] 1995;[id number]. Performed By: #### L [id number] #### [facility] ([employer]) [address] [address] PROTHROMBIN TIME (PT) IN PPP BY COAGULATION ASSAY 13.2 Seconds Normal 12.3-14.8 [facility] Comment on above: Performed By: #### L [id number] #### [facility] ([facility]) [address] [place] [address] TOXICOLOGY PANEL URINEon AMPHETAMINE+METHAMP HETAMINE SCREEN (PRESENCE) IN URINE Negative Normal Negative [facility] Comment on above: Performed By: #### L [id number] #### [facility] ([facility]) [address] [place] [address] BARBITURATES PRESENCE IN URINE BY SCREEN METHOD Negative Normal Negative [facility] Comment on above: Performed By: #### L [id number] #### [facility] ([facility]) [address] [place] [address] Benzodiazepines Ql (U) Negative Normal Negative [facility] Comment on above: Performed By: #### L [id number] #### [facility] ([facility]) [address] [place] [address] CANNABINOID (PRESENCE) IN URINE BY SCREEN METHOD Positive Abnormal Negative [facility] Comment on above: Performed By: #### L [id number] #### [facility] ([facility]) [address] [place] [address] Cocaine Ql (U) Negative Normal Negative [facility] Comment on above: Performed By: #### L [id number] #### [facility] ([facility]) [address] [place] [address] METHADONE (PRESENCE) IN URINE BY SCREEN METHOD Negative Normal Negative [facility] Comment on above: Performed By: #### L [id number] #### [facility] ([facility]) [address] [place] [address] OPIATES (PRESENCE) IN URINE BY SCREEN METHOD Negative Normal Negative [facility] Comment on above: Performed By: #### L [id number] #### [facility] ([facility]) [address] [place] [address] PHENCYCLIDINE PRESENCE IN URINE BY SCREEN METHOD Negative Normal Negative [facility] Comment on above: Performed By: #### L [id number] #### [facility] ([facility]) [address] [place] [address] Propoxyphene Screen Ql (U) Negative Normal Negative [facility] Comment on above: Performed By: #### L [id number] #### [facility] ([facility]) [address] [place] [address] TRICYCLIC ANTIDEPRESSANTS (PRESENCE) IN URINE Negative Normal Negative [facility] Comment on above: Performed By: #### L [id number] #### [facility] ([facility]) [address] [place] [address] TROPONIN Ion 08-17-2023 Troponin I.cardiac [Mass/Vol] 0.00 ng/mL Normal 0.00-0.04 [facility] Comment on above: Performed By: #### L [id number] ####[facility] ([facility])[address] [place] [address] Troponin I.cardiac [Mass/Vol] 0.01 ng/mL Normal 0.00-0.04 [facility] Comment on above: Performed By: #### L [id number] #### [facility] ([facility]) [address] [place] [address] Troponin I.cardiac [Mass/Vol] 0.04 ng/mL Normal 0.00-0.04 [facility] Comment on above: Performed By: #### L [id number] #### [facility] ([facility]) [address] [place] [address] TSH3 REFLEX TO FT4on 023 THYROTROPIN (MIU/L) IN SER/PLAS BY DETECTION LIMIT <= 0.05 MIU/L 2.69 mIU/L Normal 0.34-5.60 [facility] Comment on above: Performed By: #### L [id number] #### [facility] ([facility]) [address] [place] [address] URINALYSIS WITH REFLEX CULTU REon 08-17-2023 BILIRUBIN, TOTAL PRESENCE IN URINE Negative Normal Negative [facility] Comment on above: Order Comment: Micro scopics not performed on urines with negative chemical reactions unless requested on original order. Performed By: #### L [id number] #### [facility] ([facility]) [address] [address] Clarity (U) Clear Normal Clear [facility] Comment on above: Order Comment: Micro scopics not performed on urines with negative chemical reactions unless requested on original order. Performed By: #### L [id number] #### [facility] ([facility]) [address] [address] Color (U) Yellow Normal Yellow [facility] Comment on above: Order Comment: Micro scopics not performed on urines with negative chemical reactions unless requested on original order. Performed By: #### L [id number] #### [facility] ([facility]) [address] [address] Glucose (U) [Mass/Vol] Negative Normal Negative [facility] Comment on above: Order Comment: Micro scopics not performed on urines with negative chemical reactions unless requested on original order. Performed By: #### L [id number] #### [facility] ([facility]) [address] [address] HEMOGLOBIN PRESENCE IN URINE Negative Normal Negative [facility] Comment on above: Order Comment: Micro scopics not performed on urines with negative chemical reactions unless requested on original order. Performed By: #### L [id number] #### [facility] ([facility]) [address] [address] Ketones Ql (U) Negative Normal Negative [facility] Comment on above: Order Comment: Micro scopics not performed on urines with negative chemical reactions unless requested on original order. Performed By: #### L [id number] #### [facility] ([facility]) [address] [address] LEUKOCYTE ESTERASE PRESENCE IN URINE BY TEST STRIP Negative Normal Negative [facility] Comment on above: Order Comment: Micro scopics not performed on urines with negative chemical reactions unless requested on original order. Performed By: #### L [id number] #### [facility] (BEAKER) [address] [address] NITRITE PRESENCE IN URINE Negative Normal Negative [facility] Comment on above: Order Comment: Micro scopics not performed on urines with negative chemical reactions unless requested on original order. Performed By: #### L [id number] #### [facility] (BEAKER) [address] [address] pH (U) 5.0 [pH] Normal 5.0-8.0 [facility] Comment on above: Order Comment: Micro scopics not performed on urines with negative chemical reactions unless requested on original order. Performed By: #### L [id number] #### [facility] [address] [address] Protein (U) [Mass/Vol] Negative Normal Negative [facility] Comment on above: Order Comment: Micro scopics not performed on urines with negative chemical reactions unless requested on original order. Performed By: #### L [id number] #### [facility] [address] [address] Specific gravity (U) [Rel density] 1.024 High 1.015-1.020 [facility] Comment on above: Order Comment: Micro scopics not performed on urines with negative chemical reactions unless requested on original order. Performed By: #### L [id number] #### [facility] ([facility]) [address] [address] Encounters Encounter Date Encounter Type Care Provider Facility Start: 02-02-2024 End: 02-02-2024 Patient encounter procedure MD Wilian Cook Work Phone: [facility] Work Phone: Start: 02-02-2024 End: 02-02-2024 ambulatory MD Wilian Cook Work Phone: [facility] Work Phone: Start: 12-12-2023 End: 12-12-2023 Patient encounter procedure MD Wilian Cook Work Phone: [facility] [place] Work Phone: Start: 12-12-2023 End: 12-12-2023 ambulatory MD Wilian Cook Work Phone: [facility] Work Phone: Start: 11-06-2023 End: 11-06-2023 ambulatory [facility] Start: 10-05-2023 ambulatory [facility] Start: 10-05-2023 End: 10-05-2023 ambulatory [facility] Start: 09-08-2023 End: 09-08[facility] Start: 08-17-[facility]23 [facility] Start: 08-17-2023 Evaluation [facility] management of inpatient [facility] Start: 08-17-2023 Evaluation and management of inpatient [facility] Start: 08-17-2023 End: 08-18-2023 Evaluation and management of inpatient [facility] Start: 03-24-2018 Patient encounter WILIAN Gill ity:H1 Procedures Date Procedure Procedure Detail Performing Clinician Start: 02-02-2024 X-ray of cervical spine MD Wilian Cook Work Phone: Start: 12-12-2023 Ultrasonography of abdomen MD Wilian Cook Work Phone: Payers Date Payer Category Payer Self-pay [id number] 2022 Unknown [id number] 1959 Self-pay [id number] Medicaid [facility] [id number] Medicaid [facility] 102 [id number] 99 Unknown [id number] Unknown [id number] Social History Date Type Detail Facility Start: 07-11-2021 Tobacco smoking stat NHIS Smoker (finding) [facility] Start: 1980 Sex Assigned At Female F [facility] Clinical Notes 08-17-2023 to 11-06-2023 Note Date & Type Note Facility 11-06-2023 Note [facility] Subjective Travis Rivas is a 43 y.o. year old female patient being seen for follow up PCI RCA performed on 10/05/2023. She is getting SOB with minimal exertion. Says she was sent home from work the other day for this. Denies chest pain but gets a weird sensation . Patient Active Problem List Diagnosis ??? Chest pain ??? 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 [...] or chew., D (more content not included)... [facility] 10-05-2023 Note Patient: Travis mac Procedure Information Date/Time: 10/05/23 0830 Procedure: Percutaneous coronary intervention (Left) Location: [facility] ASH CONVEYOR OPERATOR 3 / [facility] (Cath) Providers: Santos Cabrera [...] Plan discussed with fellow. Additional Equipment Requests [facility] 09-08-2023 Note nisa [facility] 09-08-2023 Note Cardiology Follow Up Progress [...] Value Ventricular Rate 67 Atrial Rate 67 NE Interval 168 QRS DURATION 86 QT Interval 408 QTC CALCULATION(BAZETT) 431 P Shawnee 49 R-Shawnee 77 T Wave Shawnee 67 Impression Normal sinus rhythm T wave abnormality, consider anterior ischemia Abnormal ECG When compared with ECG of 05-OCT-2023 07:15, No significant change was found Confirmed by Darrin MONTANO, L.S. (2) on 10/05/2023 11:09:31 AM Echo results: Complete Echo (TTE) w/wo Imaging Agent, Strain, 3D, Bubble Study Result Date: 08/17/2023 1 1 [facility] Heart Station [address] [place] [address] [phone] (fax) Echocardiogram-[facility] Name: TRAVIS RIVAS Study Date: 08/17/2023 12:45 PM B/P: 128 mmHg/90 mmHg HR: 64 bpm Date of : 1980 Location: [facility] Height: 66 in. Age: 42 year(s) Patient Room: 3122 Weight: 223 lb. Gender: Female Patient Status: InPt BSA: 2.09 m2 Indication: Chest Pain, CAD, H/O CABG, Smoker Examination: Echocardiogram (Complete), Lumason Contrast Patient Consent: Procedure explained to patient Exam Details Contrast: I.V. dose of Lumason Conclusions Left Ventricle: The left ventric (more content not included)... [facility] 09-08-2023 Note Patient here for [facility] and PCI. Still has some pressure in her chest. She's feeling much better though. Plan is for staged intervention. Review of Systems Cardiovascular: Positive for chest pain ( pressure ) and palpitations ( 1 or 2 once in awhile ). Respiratory: Positive for cough (improving). All other systems reviewed and are negative. [facility] 08-18-2023 Note Discharge education completed with patient at bedside; verbalized understanding. Copy of signed AVS placed in paper chart. Prescriptions sent electronically to requested pharmacy. Derrick Boat Leverman RN escorted patient to main entrance lobby. [facility] 08-18-2023 Note [facility] [...] Value Ventricular Rate 56 Atrial Rate 56 NE Interval 152 QRS DURATION 88 QT Interval 452 QTC CALCULATION(BAZETT) 436 P Shawnee 35 R-Shawnee 85 T Wave Shawnee 79 Impression Sinus bradycardia Nonspecific ST abnormality Abnormal ECG When compared with ECG of 17-AUG-2023 09:14, No significant change was found Confirmed by Ector Paniagua (80) on 08/18/2023 8:48:38 AM 08/17/23 [facility] with NIETO to LAD patent; 90% [...] anterior descending: This (more content not included)... [facility] 08-18-2023 Note Hospital Medicine Discharge Summary Final Discharge Diagnosis: Coronary artery disease involving kaltag coronary artery of k[place] heart with unstable angina pectoris ([facility] Admission Diagnosis: Chest pain [R07.9] Hospital course: 42 y.o. female who came from home with NSTEMI. This is a 42-year-old female with a medical history including CABG, hypertension, hyperlipidemia, spinal stenosis, polycystic ovary, chronic migraines, a history of cocaine use, a history of cigarette smoking, and degenerative disc disease with spinal stenosis. The patient was transferred from [facility] for concerns of managed stable angina and [...] Center 09/08/2023 11:00 AM Sylvia Degroot MD [facility] Your medication list START taking [...] Your Medications These medications were sent to [facility]/pharmacy #[id number] [facility] [place] [address] [facility] [address] [address] atorvastatin 40 mg tablet clopidogrel 75 mg [...] Reynaga MD Hospital Medicine 08/18/2023 10:38 AM [facility] 08-17-2023 Note Patient: Travis mac Procedure Information Date/Time: 08/17/23 1530 Procedure: Left heart cath Location: [facility] ASH CONVEYOR OPERATOR 3 / [facility] (Cath) Providers: Santos Cabrera [...] Plan discussed with attending. Additional Equipment Requests [facility] 08-17-2023 Note 08/17/23 1133 Admission [...] Yes Plan to return home with . [facility] 08-17-2023 Note Hospital Medicine Daily Progress Note - 08/17/2023 11:08 AM; Room: [address] [place] [address] Admission: 08/16/2023 10:23 PM; Length of stay: 1 days THE HOSPITALIST TEAM PREFERS TO USE [employer] CHAT FOR COMMUNICATION 7AM-7PM. IF I DO NOT RESPOND WITHIN 15 MINUTES, PLEASE PAGE ME/CALL THROUGH THE HEAD OF STOCK. FROM 7PM-7AM, PLEASE PAGE [phone](COVR) Code Status: Full Code Barriers to Discharge: [...] Academy of Nutrition and Dietetics and the [place] [employer] of Enteral and Parenteral Nutrition, meets [...] 0-28 Units/kg/hr, Last Rate: 15 Units/kg/hr (08/16/23 3783) Pertinent Investigations Hematology: Results from last 7 [...] LDL 114 08/16/2023 No results found for: [id number] , IRON , TIBC , C3 , C4 , TUSHAR , CANCA , ASO , PSA , CEA , CA125 , CA199 , AFP , CA153 Imaging ECG 12 lead Normal sinus rhythm Normal ECG When compared with ECG of 01-MAR-2012 13:42, T wave inversion no longer evident in Anterior leads Discharge Planning Signed Robinson Reynaga MD [facility] 08/17/2023 11:08 AM [facility] 08-17-2023 Note . Hospital Medicine History and Physical 08/16/2023 11:10 PM THE HOSPITALIST TEAM PREFERS TO USE [employer] CH[employer] FOR COMMUNICATION 7AM-7PM. IF I DO NOT RESPOND WITHIN 15 MINUTES, PLEASE PAGE ME/CALL THROUGH THE HEAD OF STOCK. FROM 7PM-7AM, PLEASE PAGE [phone](COVR) Chief Complaint No chief complaint on file. [...] spinal stenosis. The patient was transferred from [facility] for concerns of managed stable angina and [...] this hospital stay by a member of [facility]. Past Medical History History reviewed. [...] Not on f (more content not included)... [facility] Evaluation note No assessment information availa [facility] Work Phone: Summary Purpose Family History [...] DATE CREATED AUTHOR AUTHOR'S ORGANIZ ATION 11/14/2023 [facility] DATE CREATED AUTHOR AUTHOR'S ORGANIZ ATION 02/17/2024 [facility] Care Teams (unrecognized sec tion [...] BE BASED ON THE PRIMARY CLINICAL RECORDS. [employer] provides no warranty or guarantee of the accuracy or completeness of information in this document.
[2024-12-09 12:42] LABS: Estimated Average Glucose 117 mg/dL; Glycohemoglobin A1C 5.7 % (4.5-6.2)
[2024-12-09 12:47] LABS: Basophils Absolute Auto 0.1 10^3/uL (0.0-0.1); Basophils Percent Auto 0.7 % (0.2-2.0); Eosinophils Absolute Auto 0.2 10^3/uL (0.0-0.7); Eosinophils Percent Auto 1.9 % (0.9-7.0); Hematocrit 32.4 % (36.0-48.0); Immature Granulocytes Abs Auto 0.02 10^3/uL (0.00-0.03); Immature Granulocytes Pct Auto 0.2 % (0.0-0.5); Lymphocytes Absolute Auto 2.7 10^3/uL (1.2-3.8); Lymphocytes Percent Auto 25.8 % (20.5-60.0); Mean Corpuscular HGB Conc 30.9 g/dL (29.9-35.2); Mean Corpuscular Hemoglobin 23.9 pg (26.7-34.0); Mean Corpuscular Volume 77.5 fL (81.0-99.0); Mean Platelet Volume 10.2 fL (9.5-13.5); Monocytes Absolute Auto 0.7 10^3/uL (0.3-0.8); Monocytes Percent Auto 6.7 % (1.7-12.0); Neutrophils Absolute Auto 6.8 10^3/uL (1.4-6.5); Neutrophils Percent Auto 64.7 % (43.0-75.0); Platelet Count 349 10^3/uL (150-450); Red Blood Count 4.18 10^6/uL (4.20-5.40); Red Cell Distribution Width 19.7 % (11.0-15.0); White Blood Count 10.5 10^3/uL (4.0-11.0)
[2024-12-09 13:07] LABS: Alanine Aminotransferase 20 U/L (14-59); Albumin Globulin Ratio 0.9; Albumin Level 3.5 g/dL (3.4-5.0); Alkaline Phosphatase 69 U/L (46-116); Aspartate Amino Transferase 15 U/L (15-37); BUN Creatinine Ratio 21.5; Bilirubin Total 0.1 mg/dL (0.2-1.0); Calcium 8.8 mg/dL (8.5-10.1); Carbon Dioxide 24.2 mmol/L (21.0-32.0); Chloride 107 mmol/L (98-107); Chol HDL Ratio 2.3; Cholesterol 123 mg/dL (<=200); Estimated GFR (African America >60 (>=60 mL/min/1.73m^2); Estimated GFR (Non-African Ame >60 (>=60 mL/min/1.73m^2); Globulin 3.7 g/dL; Glucose 95 mg/dL (74-106); HDL Cholesterol 53 mg/dL (40-60); LDL Cholesterol Calculated 54.2 mg/dL; Potassium 4.2 mmol/L (3.5-5.1); Sodium 139 mmol/L (136-145); Thyroid Stimulating Hormone 2.456 uIU/mL (0.358-3.740); Total Protein 7.2 g/dL (6.4-8.2); Triglycerides 79 mg/dL (<=150); Troponin I High Sensitivity <4.0 pg/mL (4.0-51.3); VLDL CHOLESTEROL 15.8 mg/dL
== END 2024-12-09 11:57 | disposition home or self-care (01) ==
LOC: LAB 11:58
PROVIDERS: PCP Family Medicine; Visit Provider Family Medicine
DX: R07.9 Chest pain, unspecified (principal); I25.10 Atherosclerotic heart disease of native coronary artery without angina pectoris; I10 Essential (primary) hypertension; E78.5 Hyperlipidemia, unspecified; R73.09 Other abnormal glucose; D64.9 Anemia, unspecified; E03.9 Hypothyroidism, unspecified; R53.83 Other fatigue
CPT/HCPCS: 36415; 80053; 80061; 83036; 83540; 83880; 84436; 84443; 84481; 84484; 85025

== ENCOUNTER 2024-12-19 12:15 | Outpatient (OUT) | payer OTHER, SELFPAY ==
--- OUTSIDE RECORDS SUMMARY | 2024-12-19 12:29 | XMS_ITS | CCD ---
Author Organization [facility] Care Team Providers Care Head Coach Name Role Phone WILIAN COOK Unavailable Unavailable WILIAN COOK Unavailable Unavailable MD Wilian Cook Primary Care Provider [phone] MD Wilian Cook Attending Provider [phone] Wilian Cook Attending Unavailable Wilian Cook Primary Care Unavailable Wilian Cook Admitting Unavailable Wilian Cook Admitting Unavailable Wilian Cook Attending Unavailable Wilian Cook Primary Care Unavailable ALEYDA TAYLOR Attending Unavailable Allergies Allergy Classification Reported Allergen(s) Allergy Type Date of Onset Reaction(s) Facility (1 source) haloperidol Drug Allergy [facility] Repository (1 source) levamisole Drug Allergy [facility] Repository (1 source) nalbuphine Drug Allergy [facility] Repository (1 source) risperiDONE Drug Allergy [facility] Repository (2 sources) Haloperidol; Translations: [HALOPERIDOL] Drug Allergy 03-10-2014 [place] Repository (1 source) Nalbuphine; Translations: [NALBUPHINE] Drug Allergy 03-10-2014 [facility] Repository (1 source) risperiDONE; Translations: [RISPERIDONE] Drug Allergy 03-10-2014 [facility] Repository Medications Current Medications Medication Drug Class(es) [...] by mouth every four hours Hydrocodone-Aceta minophen ([place]) 5-325 mg tablet Discontinued 1 TAB PO Q4H June 05, 2017 12:00am November 01, 2017 6:30pm amoxicillin 875 mg / clavulanate 125 mg oral tablet (2 sources) Penicillin-class Antibacterial Start: 08-02-2019 End: 07-11-2021 take 1 tablet by mouth twice daily Amoxicillin-Pot Clavulanate (Augmentin) 875-125 mg tablet Discontinued 1 TAB PO Twice daily 23 06August 02, 2019 1:00am July 11, 2021 9:59am cephalexin 500 mg oral capsule (2 sources) Cephalosporin Antibacterial Start: 06-05-2017 End: 11-01-2017 take 1 capsule by mouth twice daily Cephalexin (Keflex) 500 mg capsule Discontinued 500 MG PO Twice daily 23 06June 05, 2017 12:00am November 01, 2017 6:30pm [...] 1:06am Problems Problem Classification Problem Date Documented Da te Episodic/Chronic Abdominal pain (1 source) Right upper quadrant pain; Translations: [Right upper quadrant pain] Onset: 12-12-2023 Episodic Chronic obstructive pulmonary disease and bronchiectasis (2 sources) Bronchitis; Translations: [Bronchitis, not specified as acute or chronic] 08-16-2023 Episodic Nonspecific chest pain (2 sources) Other chest pain; Translations: [Other chest pain] Onset: 08-18-2023 Episodic Other upper respiratory infections (2 sources) Sinusitis; Translations: [Chronic sinusitis, unspecified] 08-16-2023 Chronic Skin and subcutaneous tissue infections (2 sources) Abscess; Translations: [Cutaneous abscess, unspecified] 08-16-2023 Episodic Spondylosis; intervertebral disc disorders; other back problems (1 source) Radiculopathy, cervical region; Translations: [Radiculopathy, cervical region] Onset: 02-02-2024 Episodic Results Test Name Value Interpretation Reference Range Facil ity XR cerv spine AP/LAT/FLX/EXT on 02-02-2024 XR cerv spine AP/LAT/FLX/EXT [facility] [place] [address] XRay Report Signed Patient: Pamela Rivas MR#: [id number] : 1980 Acct:[id number] Age/Sex: 43 / F ADM Date: 02/02/24 Loc: XD Room: Type: [facility] Attending Dr: Wilian Cook MD Copies to: [...] Amie Olvera M.D.02/02/2024 4:29 PM Dictation Location: [facility] Transcribed By: DALIA 02/02/241628 Dictated By: Amie Olvera MD 02/02/241625 Signed By: 02/02/241628 Normal [facility] US abdomen limitedon 024 US abdomen limited [facility] Main [place] [address] [place] [address] Ultrasound Report Signed Patient: Pamela Rivas MR#: [id number] : 1980 Acct:[id number] Age/Sex: 43 / F ADM Date: 12/12/23 Loc: Room: Type: [facility] Attending Dr: Wilian Cook MD Ordering Provider: [...] Jameson Jr., D.ODarrin12/12/2023 2:57 PM Dictation Location: [facility] Tech: Yady De Souza Transcribed By: DALIA 12/12/23 145 Dictated By: Santy Jameson Jr, DO 12/12/23 145 Signed By: 12/12/231456 Normal [facility] Encounters Encounter Date Encounter Type Care Provider Facility Start: 12-17-2024 End: 12-17-2024 [facility] Start: 02-02-2024 End: 02-02-2024 Patient encounter procedure MD Wilian Cook Work Phone: [facility] Main [place] Work Phone: Start: 02-02-2024 End: 02-02-2024 ambulatory MD Wilian Cook Work Phone: [facility] Work Phone: Start: 12-12-2023 End: 12-12-2023 Patient encounter procedure MD Wilian Cook Work Phone: [facility] Main [place] Work Phone: Start: 12-12-2023 End: 12-12-2023 ambulatory MD Wilian Cook Work Phone: [facility] Work Phone: Start: 03-24-2018 Patient encounter WILIAN Gill ity:H1 Procedures Date Procedure Procedure Detail Performing Clinician Start: 02-02-2024 X-ray of cervical spine MD Wilian Cook Work Phone: Start: 12-12-2023 Ultrasonography of abdomen MD Wilian Cook Work Phone: Payers Date Payer Category Payer Self-pay [id number] 18 2022 Unknown [id number] 1b 1959 Self-pay [id number] Medicaid [employer] [id number] be Medicaid [facility] 102 [id number] 99 Unknown [id number] Unknown [id number] Social History Date Type Detail Facility Start: 07-11-2021 Tobacco smoking stat us NHIS Smoker (finding) [place] Start: 1980 Sex Assigned At Female F [facility] Evaluation note Note Date & Type Note Facility Evaluation note No assessment information availa ble [facility] Work Phone: Summary Purpose Family [...] content) DATE CREATED AUTHOR 03/25/2018 [facility] DATE CREATED AUTHOR AUTHOR'S ORGANIZ ATION 02/17/2024 [facility] DATE CREATED AUTHOR AUTHOR'S ORGANIZ ATION 12/19/2024 [facility] Care Teams (unrecognized sec tion and content) [...] BE BASED ON THE PRIMARY CLINICAL RECORDS. [facility]. provides no warranty or guarantee of the accuracy or completeness of information in this document.
[2024-12-19 12:36] LABS: Basophils Percent Auto 0.3 % (0.2-2.0); Eosinophils Absolute Auto 0.1 10^3/uL (0.0-0.7); Eosinophils Percent Auto 0.7 % (0.9-7.0); Hematocrit 34.8 % (36.0-48.0); Immature Granulocytes Abs Auto 0.06 10^3/uL (0.00-0.03); Immature Granulocytes Pct Auto 0.4 % (0.0-0.5); Lymphocytes Absolute Auto 2.1 10^3/uL (1.2-3.8); Lymphocytes Percent Auto 14.1 % (20.5-60.0); Mean Corpuscular HGB Conc 31.6 g/dL (29.9-35.2); Mean Corpuscular Hemoglobin 25.1 pg (26.7-34.0); Mean Corpuscular Volume 79.5 fL (81.0-99.0); Mean Platelet Volume 9.7 fL (9.5-13.5); Monocytes Absolute Auto 0.8 10^3/uL (0.3-0.8); Monocytes Percent Auto 5.7 % (1.7-12.0); Neutrophils Absolute Auto 11.7 10^3/uL (1.4-6.5); Neutrophils Percent Auto 78.8 % (43.0-75.0); Platelet Count 284 10^3/uL (150-450); Red Blood Count 4.38 10^6/uL (4.20-5.40); Red Cell Distribution Width 22.9 % (11.0-15.0); White Blood Count 14.9 10^3/uL (4.0-11.0)
[2024-12-20 04:27] LABS: Vitamin B12 262 pg/mL (232-1245)
== END 2024-12-19 12:16 | disposition home or self-care (01) ==
LOC: LAB 12:16
PROVIDERS: PCP Family Medicine; Visit Provider Family Medicine
DX: E55.9 Vitamin D deficiency, unspecified (principal); R53.83 Other fatigue
CPT/HCPCS: 36415; 82306; 82607; 82746; 85025

== ENCOUNTER 2025-01-20 07:31 | Outpatient (RCR) | payer OTHER, SELFPAY ==
[2025-01-20 10:00] VITALS: BP 129/87; PULSE 57; TEMP 36.7; O2SAT 95
[2025-01-20] MEDS: IRON SUCROSE COMPLEX 300 MG in 0.9 % SODIUM CHLORIDE 250 ML 176.667 MG IV (10:10)
== END 2025-02-01 23:59 | disposition home or self-care (01) ==
LOC: INF 07:31
PROVIDERS: PCP Family Medicine; Visit Provider Family Medicine
DX: D50.9 Iron deficiency anemia, unspecified (principal)
CPT/HCPCS: 96365; J1756

== ENCOUNTER 2025-01-31 13:14 | Outpatient (OUT) | payer OTHER, SELFPAY ==
--- OUTSIDE RECORDS SUMMARY | 2025-01-31 13:29 | XMS_ITS | CCD ---
Author Organization [facility] Care Team Providers Care Edgerman Name Role Phone WILIAN COOK Unavailable Unavailable WILIAN COOK Unavailable Unavailable MD Wilian Cook Primary Care Provider [phone] MD Wilian Cook Attending Provider Wilian Cook Attending Unavailable Wilian Cook Primary Care Unavailable Wilian Cook Admitting Unavailable Wilian Cook Admitting Unavailable Wilian Cook Attending Unavailable Wilian Cook Primary Care Unavailable ALEYDA TAYLOR Attending Unavailable Allergies Allergy Classification Reported Allergen(s) Allergy Type Date of Onset Reaction(s) Facility (1 source) haloperidol Drug Allergy [facility] Repository (1 source) levamisole Drug Allergy [facility] Repository (1 source) nalbuphine Drug Allergy [facility] Repository (1 source) risperiDONE Drug Allergy [facility] Repository (2 sources) Haloperidol; Translations: [HALOPERIDOL] Drug Allergy 03-10-2014 [facility] Repository (1 source) Nalbuphine; Translations: [NALBUPHINE] Drug Allergy 03-10-2014 [facility] Repository (1 source) risperiDONE; Translations: [RISPERIDONE] Drug Allergy 03-10-2014 [facility] Repository Medications Current Medications Medication Drug Class(es) [...] by mouth every four hours Hydrocodone-Aceta minophen ([place]) 5-325 mg tablet Discontinued 1 TAB PO [...] Name Value Interpretation Reference Range Facil ity 36on 01-06-2025 36 Regarding labs from 12/09/2024: MD Francisca Raya MA Very good cholesterol levels. LM on her VM with above message. Normal [facility] Office Visiton 12-17-2024 Follow-up visit [id number] Pamela Riavs 1980 F Date Provider Department Center 12/17/2024 ALEYDA RUIZ CARD [facility] Family History Problem Relation Age of Onset Coronary artery disease Mother Brain Aneurysm Mother Lung cancer Father Supraventricular tachycardia Sister Family Status - Relation Status Age at Mother Father Sister Alive Brother Alive Level of Service:42792 [place] OFFICE/OUTPATIENT ESTABLISHED MOD MDM 30 MIN Normal [facility] XR cerv spine AP/LAT/FLX/EXT on 02-02-2024 XR cerv spine AP/LAT/FLX/EXT [facility] [place] [address] XRay Report Signed Patient: Pamela Rivas MR#: [id number] : 1980 Acct:[id number] Age/Sex: 43 / F ADM Date: 02/02/24 Loc: XD Room: Type: [facility] Attending Dr: Wilian Cook MD Copies to: Wilian Cook MD Ordering Provider: iWlian Cook MD Date of Service: 02/02/24 XR/XR [...] Amie Olvera M.D.02/02/2024 4:29 PM Dictation Location: [place] [address] Transcribed By: [facility] 02/02/24 1629 Dictated By: Amie Olvera MD 02/02/24 1626 Signed By: 02/02/24 1629 Normal [facility] US abdomen limitedon 024 US abdomen limited [facility] [place] [address] Ultrasound Report Signed Patient: Pamela Rivas MR#: [id number] : 1980 Acct:[id number] Age/Sex: 43 / F ADM Date: 12/12/23 Loc: Room: Type: [facility] Attending Dr: Wilian Cook MD Ordering Provider: [...] FINDINGS.. Impression dictated by: Santy Jameson Jr., D.O.12/12/2023 2:57 PM Dictation Location: [place] [address] Tech: Yady De Souza Transcribed By: DALIA 12/12/23 1457 Dictated By: Santy Jameson Jr, DO 12/12/23 1456 Signed By: 12/12/23 1457 Normal [facility] Encounters Encounter Date Encounter Type Care Provider Facility Start: 12-17-2024 End: 12-17-2024 ambulatory [facility] Start: 02-02-2024 End: 02-02-2024 Patient encounter procedure MD Wilian Cook Work Phone: [facility] Main [place] Work Phone: Start: 02-02-2024 End: 02-02-2024 ambulatory MD Wilian Cook Work Phone: [facility] Work Phone: Start: 12-12-2023 End: 12-12-2023 Patient encounter procedure MD Wilian Cook Work Phone: [facility] Main [place] Work Phone: Start: 12-12-2023 End: 12-12-2023 ambulatory MD Wilian Cook Work Phone: [facility] Work Phone: Start: 03-24-2018 Patient encounter WILIAN Gill ity:H1 Procedures Date Procedure Procedure Detail Performing Clinician Start: 02-02-2024 X-ray of cervical spine MD Wilian Cook Work Phone: Start: 12-12-2023 Ultrasonography of abdomen MD Wilian Cook Work Phone: Payers Date Payer Category Payer Self-pay [id number] 18 2022 Unknown [id number] 1b 1959 Self-pay [id number] Medicaid [facility] [id number] be Medicaid [facility] 102 [id number] 99 Unknown [id number] Unknown [id number] Social History Date Type Detail Facility Start: 07-11-2021 Tobacco smoking stat NHIS Smoker (finding) [facility] Start: 1980 Sex Assigned At Female F [facility] Progress note 12-17-2024 Note Date & Type Note Facility 12-17-2024 Note Patient here per her request. Patient need surgery for internal bleeding for an internal hemorrhoid and needs off her Plavix. Patient states she is only taking her Plavix every other day which has helped the bleeding. Patient states she had recent labs ordered by Dr. Cook. Which showed she was anemic. Patient no longer taking Amlodipine patient states she stopped taking it on her own as a trial due to her blood pressures being so low. Patient states her blood pressure were in the 80/60. Since she has stopped she states they are in the 110/70. Patient doesn't have a surgery date yet patient has not seen the surgeon yet Dr. Cook advised her to have the heart DrDarrin Stop the Plavix before the surgery. Patient states she was doing really will cardiac curtis until she became anemic which has caused chest pain dyspnea with exertion, lighheadness and fatigue. Review of Systems Constitutional: Positive for malaise/fatigue. Cardiovascular: Positive for chest pain and dyspnea on exertion. Neurological: Positive for light-headedness. [facility] Progress note 12-17-2024 Note Date & Type Note Facility 12-17-2024 Note [facility] Subjective Pamela Rivas is a 44 y.o. year old female patient being seen for follow up on CAD. Patient Active Problem List Diagnosis Chest pain Coronary artery disease involving [place] coronary artery of [place] heart with unstable angina pectoris (CMS/HCC) Former smoker Primary hypertension Mixed hyperlipidemia Spinal stenosis History of cocaine use Abnormal vaginal bleeding Kidney stone Polycystic bilateral ovaries Thyroid nodule Coronary artery disease due to lipid rich plaque Cervical radiculitis Family History Problem Relation Name Age of Onset Coronary artery disease Mother Brain Aneurysm Mother Lung cancer Father Supraventricular tachycardia Sister Social History Tobacco Use Smoking status: Every Day Current packs/day: 0.00 Types: Cigarettes Last attempt to quit: 08/11/2023 Years since quittin.3 Smokeless tobacco: Never Substance Use Topics Alcohol use: Never Drug use: Yes Types: Marijuana Comment: daily TARUN Santiago is seen in follow up. She is [...] staged intervention to the RCA on 10/05/2023. I last saw her on 11/06/2023. At that time she was free from chest pain but was having symptoms of chest discomfort and shortness of breath on mild exertion. therefore I increased isosorbide mononitrate to 60 mg once daily and added amlodipine 5 mg once daily. I referred her to cardiac rehab. Today she reports that the medication changes have worked very well with her. She no longer has any chest symptoms or shortness of breath. She feels more energy. She is happy. She tells me that she is currently being investigated for possible gallbladder issue and there might be a need for gallbladder surgery. 12/12/2024 Patient here per her request. Patient need surgery for internal bleeding for an internal hemorrhoid and needs off her Plavix. Patient states she is only taking her Plavix every other day which has helped the bleeding. Patient states she had recent labs ordered by Dr. Cook. Which showed she was anemic. Patient no longer taking Amlodipine patient states she stopped taking it on her own as a trial due to her blood pressures being so low. Patient states her blood pressure were in the 80/60. Since she has stopped she states they are in the 110/70. Patient doesn't have a surgery date yet patient has not seen the surgeon yet Dr. Cook advised her to have the heart DrDarrin Stop the Plavix before the surgery. Patient states she was doing really will cardiac curtis until she became anemic which has caused chest pain dyspnea with exertion, lighheadness and fatigue. She notes she is having increased rectal bleeding since being on plavix. Any time she is on the toilet she has blood in the toilet. This gets exacerbated if she has frequent BMs which has been more frequent when she was diagnosed with fatty liver dz 6 months ago. She has been taking plavix every other day for the past 4 days and this has helped a lot. She is still taking the aspirin every day. Review of Systems Cardiovascular: Negative for chest pain, dyspnea on exertion and palpitations. Gastrointestinal: Positive for bloating, diarrhea and flatus. All other systems reviewed and are negative. Objective Visit Vitals BP 119/73 (BP Location: Left arm, Patient Position: Sitting) Pulse 65 Ht 1.676 m (5' 6 ) Wt 92.5 kg (204 lb) SpO2 98% BMI 32.93 kg/m??? OB Status Having periods Smoking Status Every Day BSA 2.08 m??? Physical Exam Constitutional: Appearance: She is [...] focal deficit present. Mental Status: She is a (more content not included)... [facility] Evaluation note Note Date & Type Note Facility Evaluation note No assessment information availa [facility] Work Phone: Summary Purpose [...] CREATED AUTHOR AUTHOR'S ORGANIZ ATION 02/17/2024 [facility] DATE CREATED AUTHOR AUTHOR'S ORGANIZ ATION 01/09/2025 [facility] Care Teams (unrecognized sec tion and content) [...] BE BASED ON THE PRIMARY CLINICAL RECORDS. [facility]. provides no warranty or guarantee of the accuracy or completeness of information in this document.
[2025-01-31 14:28] LABS: Basophils Absolute Auto 0.1 10^3/uL (0.0-0.1); Basophils Percent Auto 0.5 % (0.2-2.0); Eosinophils Absolute Auto 0.1 10^3/uL (0.0-0.7); Eosinophils Percent Auto 0.7 % (0.9-7.0); Hematocrit 45.6 % (36.0-48.0); Hemoglobin 14.9 g/dL (12.0-16.0); Immature Granulocytes Abs Auto 0.03 10^3/uL (0.00-0.03); Immature Granulocytes Pct Auto 0.3 % (0.0-0.5); Lymphocytes Absolute Auto 2.3 10^3/uL (1.2-3.8); Lymphocytes Percent Auto 24.2 % (20.5-60.0); Mean Corpuscular HGB Conc 32.7 g/dL (29.9-35.2); Mean Corpuscular Hemoglobin 28.3 pg (26.7-34.0); Mean Corpuscular Volume 86.7 fL (81.0-99.0); Mean Platelet Volume 9.7 fL (9.5-13.5); Monocytes Absolute Auto 0.6 10^3/uL (0.3-0.8); Monocytes Percent Auto 6.6 % (1.7-12.0); Neutrophils Absolute Auto 6.5 10^3/uL (1.4-6.5); Neutrophils Percent Auto 67.7 % (43.0-75.0); Platelet Count 271 10^3/uL (150-450); Red Blood Count 5.26 10^6/uL (4.20-5.40); White Blood Count 9.6 10^3/uL (4.0-11.0)
[2025-01-31 15:18] LABS: Red Cell Distribution Width 25.1 % (11.0-15.0)
== END 2025-01-31 13:15 | disposition home or self-care (01) ==
PROVIDERS: PCP Family Medicine; Visit Provider Family Medicine
DX: E61.1 Iron deficiency (principal)
CPT/HCPCS: 36415; 83540; 85025